=== PATIENT | female | born 1955 | race African-American/Black ===

== ENCOUNTER 2016-10-01 08:37 | Day surgery (SDC) | payer BC, MEDICARE ==
[~2016-10-01 08:37] MED LIST: CHONDR SU A NA/HYALUR INTRAOC KIT (SURGICARE) ONE; EPINEPHRINE INJ/PF 1 MG/1 ML AMPULE ONE; KETOROLAC TROMETHAMINE 0.45% 4 DROP/0.4 ML DROPERETTE OD PRN; LIDOCAINE 1% INJ-PF (10 MG/ML) 30 ML SDV ONE; TOBRAMYCIN SULFATE/DEXAMETH OPH OINTMENT 3.5 GM ONE
[2016-10-01] MEDS: CYCLOPENTOLATE 0.2%/PHENYLEPHRINE 1% OPH SOLN 2 ML OD PRN ×3 (09:04→09:43)
[2016-10-01] MEDS: TROPICAMIDE 1% OPH SOLN 3 ML OD PRN ×3 (09:04→09:43)
[2016-10-01] MEDS: BESIFLOXACIN HCL 0.6% OPH SUSP 5 ML BOTTLE OD PRN ×2 (09:05→10:18)
[2016-10-01] MEDS: TETRACAINE HCL 0.5% OPH SOLN 0.6 ML DROPERETTE OD PRN ×4 (09:06→09:57)
[2016-10-01] MEDS ORDERED: MIDAZOLAM 2 MG/2 ML INJ ONE (09:37)
[2016-10-01] MEDS ORDERED: FENTANYL CITRATE INJ/PF 100 MCG/2 ML AMPUL ONE (09:37)
== END 2016-10-01 11:25 | disposition home or self-care (01) ==
LOC: SC 08:37
PROVIDERS: ATTEND Ophthalmology
PROC: 08RJ3JZ Replacement of Right Lens with Synthetic Substitute, Percutaneous Approach (ICD-10-PCS; principal; 2016-10-01 09:15)
DX: H25.11 Age-related nuclear cataract, right eye (principal); Z96.1 Presence of intraocular lens; I25.10 Atherosclerotic heart disease of native coronary artery without angina pectoris; E11.9 Type 2 diabetes mellitus without complications; I10 Essential (primary) hypertension; E78.00 Pure hypercholesterolemia, unspecified; K21.9 Gastro-esophageal reflux disease without esophagitis; Z79.899 Other long term (current) drug therapy; Z79.84 Long term (current) use of oral hypoglycemic drugs
CPT/HCPCS: 82962; 66984; V2630; J2250; J3490 ×3; A9270; J0171; J3010; 142

== ENCOUNTER 2016-11-06 11:35 | Inpatient (IN) | payer MEDICARE ==
--- NOTE | 2016-11-06 11:43 | ER Document Report ---
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 able to move all extremities. able to follow commands. pmh s/f stroke I have greeted and performed a rapid initial assessment of this patient. A comprehensive ED assessment and evaluation of the patient, analysis of test results and completion of the medical decision making process will be conducted by additional ED providers. TRAVEL OUTSIDE OF THE [place] IN LAST 30 DAYS: No - Related Data Allergies/Adverse Reactions: aspirin Adverse Reaction (Mild, Verified 10/01/16 09:47) INCREASES HEART RATE Past Medical History - Past Medical History Cardiac Medical History: Reports: Hx Heart Attack - 2006, Hx Hypertension - MEDICATED Pulmonary Medical History: Denies: Hx Asthma Neurological Medical History: Reports: Hx Cerebrovascular Accident - X 2, Hx Seizures - LAST SEIZURE APPROX 6 MO AGO Endocrine Medical History: Reports: Hx Diabetes Mellitus Type 2 GI Medical History: Reports: Hx Ulcer. Denies: Hx Hepatitis, Hx Hiatal Hernia Psychiatric Medical History: Reports: Hx Dementia - Multi-infarct, Hx Depression Infectious Medical History: Denies: Hx Hepatitis Past Surgical History: Reports: Hx Cardiac Catheterization, Hx Hysterectomy. Denies: Hx Mastectomy, Hx Open Heart Surgery, Hx Pacemaker
[2016-11-06] MEDS ORDERED: DIPHENHYDRAMINE HCL 50 MG/ML VIAL ONE (12:09)
[2016-11-06] MEDS ORDERED: DIPHENHYDRAMINE HCL 50 MG/ML VIAL IM ONE (12:22)
--- NOTE | 2016-11-06 12:28 | ER Document Report ---
ED Neuro Symptoms/Deficit - General Chief Complaint: Slurred Speech Stated Complaint: SLURRED SPEECH,FACIAL DROOP Notes: The patient is a 61-year-old female, past medical history hypertension, prior CVAs (residual mild right-sided arm and leg weakness), seizure disorder, depression, left eye blindness, DM, HLD, presents after she was found to be confused, slurred speech and forced right eye deviation by her that started last night at 2100. When she woke up, the symptoms were still present. The says that she has not started any new medications. The patient is not complaining of any pain, but she says that she is having some difficulty seeing out of her right eye. She cannot take her medications today because of difficulty swallowing. Denies headache, nausea, vomiting, abdominal pain, chest pain, shortness of breath, fevers, neck stiffness, numbness, tingling or increased weakness. TRAVEL OUTSIDE OF THE [place] IN LAST 30 DAYS: No - Related Data Allergies/Adverse Reactions: aspirin Adverse Reaction (Mild, Verified 11/06/16 11:44) INCREASES HEART RATE Past Medical History - General Information source: Patient, Relative - - Social History Smoking Status: Never Smoker Chew tobacco use (# tins/day): No Frequency of alcohol use: None Drug Abuse: None Family History: Reviewed & Not Pertinent Patient has suicidal ideation: No Patient has homicidal ideation: No - Past Medical History Cardiac Medical History: Reports: Hx Heart Attack - 2006, Hx Hypertension - MEDICATED Pulmonary Medical History: Denies: Hx Asthma Neurological Medical History: Reports: Hx Cerebrovascular Accident - X 2, Hx Seizures - LAST SEIZURE APPROX 6 MO AGO Endocrine Medical History: Reports: Hx Diabetes Mellitus Type 2 Renal/ Medical History: Denies: Hx Peritoneal Dialysis GI Medical History: Reports: Hx Ulcer. Denies: Hx Hepatitis, Hx Hiatal Hernia Psychiatric Medical History: Reports: Hx Dementia - Multi-infarct, Hx Depression Infectious Medical History: Denies: Hx Hepatitis Past Surgical History: Reports: Hx Cardiac Catheterization, Hx Hysterectomy. Denies: Hx Mastectomy, Hx Open Heart Surgery, Hx Pacemaker Review of Systems - Review of Systems Notes: REVIEW OF SYSTEMS: CONSTITUTIONAL: -fevers, -chills EENT: +right eye blurriness, -eye pain, -difficulty swallowing, -nasal congestion CARDIOVASCULAR: -chest pain, -syncope. RESPIRATORY: -cough, -SOB GASTROINTESTINAL: -abdominal pain, -nausea, -vomiting, -diarrhea GENITOURINARY: -dysuria, -hematuria MUSCULOSKELETAL: -back pain, -neck pain SKIN: -rash or skin lesions. HEMATOLOGIC: -easy bruising or bleeding. LYMPHATIC: -swollen, enlarged glands. NEUROLOGICAL: -altered mental status or loss of consciousness, -headache, + slurred speech, +right eye deviation PSYCHIATRIC: -anxiety, -depression. ALL OTHER SYSTEMS REVIEWED AND NEGATIVE. Physical Exam - Vital signs Vitals: Pulse Resp BP Pulse Ox 78 18 157/102 H 98 11/06/16 12:10 11/06/16 12:10 11/06/16 12:10 11/06/16 12:10 - Notes Notes: PHYSICAL EXAMINATION: GENERAL: Well-appearing, well-nourished and in no acute distress. HEAD: Atraumatic, normocephalic. EYES: Forced right eye deviation. Pupils equal round and reactive to light, extraocular movements intact, sclera anicteric, conjunctiva are normal. ENT: nares patent, oropharynx clear without exudates. Moist mucous membranes. NECK: Normal range of motion, supple without lymphadenopathy LUNGS: Breath sounds clear to auscultation bilaterally and equal. No wheezes rales or rhonchi. HEART: Regular rate and rhythm without murmurs ABDOMEN: Soft, nontender, normoactive bowel sounds. No guarding, no rebound. No masses appreciated. EXTREMITIES: Normal range of motion, no pitting or edema. No cyanosis. NEUROLOGICAL: Forced right eye deviation, symmetrical facial muscles, residual 4 -5 strength on the right arms and legs and 5 out of 5 strength in the left arms and legs. No sensory deficit. PSYCH: Normal mood, normal affect. SKIN: Warm, Dry, normal turgor, no rashes or lesions noted. Course - Re-evaluation Re-evalutation: NIHSS 10. ABCD2 score of 6. Patient is not a TPA candidate due to onset of symptoms 15 hours ago at 21:00 yesterday. 11/06/16 13:24 On arrival, Benadryl was provided for possible dystonic reaction due to some psychiatric medications on her home med list. Her symptoms did not change. CT shows a lacunar infarct with extension into his brainstem. She listed an aspirin allergy, but her sister said that she had cataract surgery about 2 months ago and was told not to take aspirin after the surgery. She takes aspirin at home normally. Will provide her with MA aspirin because the benefits of ASA during a CVA outweigh the risks at this time and she did not pass the dysphagia screening. Also will provide labetalol IV for her elevated blood pressure. Spoke to Dr. Kidd and she has accepted patient as inpatient IMCU. - Vital Signs Vital signs: Temp Pulse Resp BP Pulse Ox 78 20 157/121 H 99 11/06/16 12:10 11/06/16 12:15 11/06/16 12:10 11/06/16 12:22 - Laboratory Result Diagrams: 11/06/16 12:15 11/06/16 12:15 Laboratory results interpreted by me: 11/06/16 11/06/16 11/06/16 12:15 12:15 12:18 Hgb 11.3 L Hct 34.1 L Carbon Dioxide 31 H BUN 34 H Est GFR (Non-Af Amer) 55 L Glucose 128 H POC Glucose 137 H - Diagnostic Test Radiology reviewed: Image reviewed, Reports reviewed Radiology results interpreted by me: CT Head: small lacunar infarct into brainstem, chronic microvascular changes CXR: NAD - EKG Interpretation by Me EKG shows normal: Sinus rhythm Rate: Normal [place]/QRS: IVCD Heart block present: 1st Degree Critical Care Note - Critical Care Note Total time excluding time spent on procedures (mins): 60 Discharge - Discharge Clinical Impression: Cerebrovascular accident (CVA) Qualifiers: CVA mechanism: unspecified Qualified Code(s): I63.9 - Cerebral infarction, unspecified Condition: Stable Disposition: ADMITTED INPATIENT Admitting Provider: Shobha Kidd Unit Admitted: IMCU
[2016-11-06 12:30] LABS: ABSOLUTE BASOPHILS # (AUTO) 0.1 10^3/uL (0.0-0.2); ABSOLUTE EOSINOPHILS # (AUTO) 0.2 10^3/uL (0.0-0.6); ABSOLUTE LYMPHOCYTES (AUTO) 1.2 10^3/uL (0.5-4.7); ABSOLUTE MONOCYTES (AUTO) 0.5 10^3/uL (0.1-1.4); ABSOLUTE NEUT (AUTO) 3.2 10^3/uL (1.7-8.2); BASOPHILS % (AUTO) 1.2 % (0-2); EOSINOPHILS % (AUTO) 3.3 % (0-6); HEMATOCRIT 34.1 % (36.0-47.0); HEMOGLOBIN 11.3 g/dL (12.0-15.5); HGB HCT DIFFERENCE -0.2; LYMPHOCYTES % (AUTO) 23.8 % (13-45); MEAN CORPUSCULAR HEMOGLOBIN 29.8 pg (27.0-33.4); MEAN CORPUSCULAR HGB CONC 33.2 g/dL (32.0-36.0); MEAN CORPUSCULAR VOLUME 90 fl (80-97); PROTHROMBIN TIME 13.2 SEC (11.4-15.4); RED CELL DISTRIBUTION WIDTH 12.7 % (11.5-14.0); SEGMENTED NEUTROPHILS % (AUTO) 61.7 % (42-78); WHITE BLOOD COUNT 5.2 10^3/uL (4.0-10.5)
[2016-11-06 12:31] LABS: PARTIAL THROMBOPLASTIN TIME 27.8 SEC (23.5-35.8)
--- NOTE | 2016-11-06 12:51 | EKG REPORT ---
SEVERITY:- ABNORMAL ECG - SINUS RHYTHM FIRST DEGREE AV BLOCK NONSPECIFIC INTRAVENTRICULAR CONDUCTION DELAY LEFT VENTRICULAR HYPERTROPHY : Confirmed by: Angelica Arellano 06-Nov-2016 12:51:01
[2016-11-06 12:57] LABS: ALANINE AMINOTRANSFERASE 20 U/L (9-52); ALBUMIN 4.1 g/dL (3.5-5.0); ALKALINE PHOSPHATASE 57 U/L (38-126); ANION GAP 8 (5-19); ASPARTATE AMINO TRANSFERASE 17 U/L (14-36); BILIRUBIN,TOTAL 0.6 mg/dL (0.2-1.3); BLOOD UREA NITROGEN 34 mg/dL (7-20); CARBON DIOXIDE 31 mmol/L (22-30); CHLORIDE 103 mmol/L (98-107); CREATINE KINASE 53 U/L (30-135); CREATININE RESULT 1.02 mg/dL (0.52-1.25); GLUCOSE 128 mg/dL (75-110); POTASSIUM 4.1 mmol/L (3.6-5.0); SODIUM 141.7 mmol/L (137-145); TOTAL PROTEIN 7.8 g/dL (6.3-8.2)
[2016-11-06 13:06] LABS: CREATINE KINASE MB 0.33 ng/mL (<4.55)
[2016-11-06 13:07] LABS: TROPONIN I < 0.012 ng/mL
[2016-11-06] MEDS ORDERED: ASPIRIN 300 MG SUPP, RECTAL PR ONE (13:21)
[2016-11-06] MEDS ORDERED: LABETALOL HCL INJ 20 MG/4 ML DISP.SYRIN IV ONE (13:23)
[2016-11-06] MEDS ORDERED: ACETAMINOPHEN 650 MG SUPP.RECT PR PRN (13:23)
[2016-11-06] MEDS ORDERED: TRAMADOL HCL 50 MG TABLET NG PRN (13:23)
--- NOTE | 2016-11-06 13:28 | ER Document Report ---
ED NIH Stroke Scale - NIH Stroke Scale When completed:: Before Alteplase *: 1. NIH scale should be completed with appropriate accompanying assessment tools. *: 2. The NIH should reflect what the patient is capable of doing and should not be coached by the clinician. 1a. Level of Consciousness: 0=Alert;keenly responsive -: 1=Drowsy -: 2=Obtunded -: 3=Coma/unresponsive or reflex to noxious stimuli. 1a. Responses: 0 1b. Orientation Questions: a. What month is it? -: b. How old are you? -: 0=Answers both questions correctly. -: 1=Answers one question correctly or patient is intubated or has orotracheal trauma. -: 2=Answers neither question correctly. 1b. Responses: 1 1c. Response to commands: a. Open and close eyes? -: b. 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 -: Credit is given despite weakness. Demonstration of task is permitted. Substitute command if hands cannot be used. -: 0=Performs both tasks correctly -: 1=Performs one task correctly -: 2=Performs neither task correctly 1c. Responses: 0 2. Gaze: Establish eye contact and instruct patient to "Follow my finger" -: 0=Normal -: 1=Partial gaze palsy. Gaze is abnormal in one or both eyes, but where forced deviation or total gaze paresis is not present. -: 2=Forced deviation or total gaze paresis. 2. Responses: 2 3. Visual Lazo: Sees fingers in all four quadrants. -: 0=No visual loss. -: 1=Partial hemianopsia. -: 2=Complete hemianopsia. -: 3=Bilateral hemianopsia (including Cortical blindness) 3. Responses: 2 4. Facial Movement: Instruct patient to: -: a. Show me your teeth -: b. Raise your eyebrows -: c. Close your eyes -: d. Smile -: 0=Normal symmetrical movement -: 1=Minor paralysis (flattened nasolabial fold, asymmetry on smiling). -: 2=Partial paralysis (total or near total paralysis of lower face). -: 3=Complete paralysis of upper and lower face 4. Responses: 1 5. Motor functions (left arm): Alternate sides and extend each arm with palms down (90 degrees if sitting or 45 degrees for supine). -: 0=No drift;limb holds for full 10 seconds. -: 1=Drift; limb holds but drifts down before full 10 seconds, but does not hit bed. -: 2=Some effort against gravity; limb cannot get to or maintain position. -: 3=No effort against gravity; limb falls. -: 4=No movement. -: UN=Amputation, joint fusion, explain in comments. 5. Responses (left arm): 0 5. Motor Functions (right arm): Alternate sides and extend each arm with palms down (90 degrees if sitting or 45 degrees for supine). -: 0=No drift;limb holds for full 10 seconds. -: 1=Drift; limb holds but drifts down before full 10 seconds, but does not hit bed. -: 2=Some effort against gravity; limb cannot get to or maintain position. -: 3=No effort against gravity; limb falls. -: 4=No movement. -: UN=Amputation, joint fusion, explain in comments. 5. Responses (right arm): 0 6. Motor Functions (left leg): With patient lying supine, alternate sides and extend each leg (30 degrees always while supine). -: 0=No drift, leg holds position for full 5 seconds -: 1=Drift; leg falls before full 5 seconds but does not hit bed. -: 2=Some effort against gravity, leg falls to bed but some effort against gravity. -: 3=No effort against gravity, leg falls to bed immediately. -: 4=No movement. -: UN=Amputation, joint fusion; explain in comments. 6. Responses (left leg): 0 6. Motor Functions (right leg): With patient lying supine, alternate sides and extend each leg (30 degrees always while supine). -: 0=No drift, leg holds position for full 5 seconds -: 1=Drift; leg falls before full 5 seconds but does not hit bed. -: 2=Some effort against gravity, leg falls to bed but some effort against gravity. -: 3=No effort against gravity, leg falls to bed immediately. -: 4=No movement. -: UN=Amputation, joint fusion; explain in comments. 6. Responses (right leg): 0 7. Limb Ataxia: With eyes open instruct patient to: -: a. "Touch your finger to your nose". -: b. "Touch your heel to your aguilera" -: 0=Absent -: 1=Present in one limb. -: 2=Present in two limbs. -: UN=Amputation or joint fusion; explain in comments. 7. Responses: 2 8. Sensory: Test sensation using pinprick or noxious stimuli. Test as many body parts as possible. -: 0=Normal;no sensory loss -: 1=Mile to moderate sensory loss (patient feels pin prick but is less sharp on affected side). -: 2=Severe or total sensory loss. 8. Responses: 0 9. Best Language: Instruct patient to: -: a. "Describe what you see in this picture." -: b. "Name the items in this picture." -: c. "Read these sentences." -: 0=No aphasia, normal -: 1=Mild to moderate aphasia. -: 2=Severe aphasia -: 3=Mute, global aphasia, no usable speech or auditory comprehension. 9. Responses: 1 10. Articulation, Dysarthia: Instruct patient to: -: "Read these words" or "Repeat these words" -: 0=Normal -: 1=Mild to moderate; patient may slur some words but can be understood without difficulty. -: 2=Severe; patients speech so slurred as to be unintelligible in the absence of dysphasia. -: UN=Intubated or other physical barrier, explain in comments. 10. Responses: 1 11. Extinction or inattention: 0=No abnormality -: 1= Visual, tactile, auditory, spatial, or personal inattention or extinction to bilateral simulation in one or the sensory modalities. -: 2=Profound uriel-inattention or uriel-inattention to more than one modality; does not recognize own hand. 11. Responses: 0 Total Score: 10
[2016-11-06] MEDS ORDERED: PHARMACY COMMUNICATION ORDER MC NR (13:30)
[2016-11-06] MEDS: HEPARIN SOD (PORCINE) 5,000 UNIT/ML 1 ML SYRINGE SUBCUT SCH ×2 (13:58→23:54)
[2016-11-06] MEDS ORDERED: DEXTROSE 50%-WATER 25 GM/50 ML DISP.SYRIN IV PRN ×2 (14:11)
[2016-11-06] MEDS ORDERED: DEXTROSE 40% GEL 15 GM TUBE PO PRN ×2 (14:11)
[2016-11-06] MEDS ORDERED: GLUCAGON,HUMAN RECOMB 1 MG INJ IM PRN (14:11)
[2016-11-06] MEDS ORDERED: PHENOL/SODIUM PHENOLATE 100 SPRAY/177 ML BOTTLE PO PRN (14:36)
[2016-11-06] MEDS ORDERED: LORAZEPAM INJ 2 MG/1 ML VIAL IV ONE ×2 (15:00→21:00)
[2016-11-06] MEDS ORDERED: DIPHENHYDRAMINE HCL 50 MG/ML VIAL IV ONE (15:00)
[2016-11-06] MEDS ORDERED: ENALAPRILAT DIHYDRATE INJ/PF 1.25 MG/1 ML SDV IV ONE (15:00)
[2016-11-06] MEDS ORDERED: HALOPERIDOL LACTATE INJ 5 MG/1 ML VIAL IV ONE (15:00)
--- NOTE | 2016-11-06 15:38 | PDOC H&P ---
History of Present Illness Admission Date/PCP: 11/06/16 14:31 HAYLEY PETERSEN NP History of Present Illness: DAVID SALAS is a 61 year old female with a past medical history of diabetes mellitus, hypertension, hyperlipidemia, previous CVA, seizure disorder, CAD, and recent cataract surgery who presents to the emergency department with an inability to walk. Patient states that she had been doing well and feeling fine and her normal state of health prior to going to bed last evening. She reports no changes in her medications prior to today. She did not take her medications today. Patient has inconsistently been taking Aggrenox due to recent cataract surgery in September. Patient had apparently a subsequent hyphema. Upon presentation to the emergency department, patient is found to have right-sided facial drooping, right-sided gaze preference, dysarthria, dysphasia, and confusion. Patient was found to be hypertensive with a blood pressure of 157/121. Patient reports history of obstructive sleep apnea which is currently untreated. She is referred to the hospitalist service for acute CVA. Past Medical History Past Medical History: diabetes mellitus, hypertension, hyperlipidemia, previous CVA, seizure disorder , CAD, and recent cataract surgery Cardiac Medical History: Reports: Myocardial Infarction - 2006, Hyperlipidema, Hypertension - MEDICATED Pulmonary Medical History: Denies: Asthma Neurological Medical History: Reports: Seizures - LAST SEIZURE APPROX 6 MO AGO Endocrine Medical History: Reports: Diabetes Mellitus Type 2 GI Medical History: Denies: Hepatitis, Hiatal Hernia Psychiatric Medical History: Reports: Dementia - Multi-infarct, Depression Hematology: Denies: Anemia, Sickle Cell Disease Past Surgical History Past Surgical History: Cataract Past Surgical History: Reports: Cardiac Catheterization, Hysterectomy Denies: Amputation, Mastectomy, Pacemaker Social History Smoking Status: Never Smoker Frequency of Alcohol Use: None Hx Recreational Drug Use: No Hx Prescription Drug Abuse: No - Advance Directive Resuscitation Status: Do Not Resuscitate Surrogate healthcare decision maker:: Sister, Miranda surrogate decision maker Family History Family History: CAD, CVA, Hypertension Family History: Mother at the age of 33 of "phlebitis" that went to her lung Parental Family History Reviewed: Yes Children Family History Reviewed: Yes Sibling(s) Family History Reviewed.: Yes Medication/Allergy Home Medications: Lisinopril [Prinivil 20 mg Tablet] 40 mg PO DAILY 06/30/12 Metformin HCl [Metformin HCl ER] 500 mg PO BID 06/30/12 Simvastatin [Zocor 10 mg Tablet] 20 mg PO QHS 06/30/12 Hydrochlorothiazide 12.5 mg PO DAILY #5 capsule 05/11/16 Amlodipine Besylate [Norvasc 10 mg Tablet] 10 mg PO DAILY 09/17/16 Atropine Sulfate [Atropine 1% Oph Soln 5 ml] 1 - 2 drop OU QID 09/17/16 Citalopram Hydrobromide [Citalopram HBr] 10 mg PO DAILY 09/17/16 Dipyridamole [Persantine 25 Mg Tablet] 25 mg PO DAILY 09/17/16 Esomeprazole Magnesium [Nexium] 40 mg PO DAILY 09/17/16 Levetiracetam [Keppra Xr 500 Mg Tab.Sr] 500 mg PO BID 09/17/16 Prednisolone Acetate [Pred Forte] 1 ml OP ASDIR PRN 09/17/16 Allergies/Adverse Reactions: aspirin Adverse Reaction (Mild, Verified 11/06/16 11:44) INCREASES HEART RATE Review of Systems Constitutional: ABSENT: chills, fever(s), headache(s), weight gain, weight loss Eyes: PRESENT: as per HPI, visual disturbances Ears: ABSENT: hearing changes Cardiovascular: PRESENT: edema, orthropnea. ABSENT: chest pain, dyspnea on exertion, palpitations Respiratory: PRESENT: dyspnea. ABSENT: cough, hemoptysis Gastrointestinal: PRESENT: constipation. ABSENT: abdominal pain, diarrhea, hematemesis, hematochezia, nausea, vomiting Genitourinary: ABSENT: dysuria, hematuria Musculoskeletal: ABSENT: joint swelling Integumentary: ABSENT: rash, wounds Neurological: PRESENT: as per HPI Psychiatric: ABSENT: anxiety, depression, homidical ideation, suicidal ideation Endocrine: ABSENT: cold intolerance, heat intolerance, polydipsia, polyuria Hematologic/Lymphatic: ABSENT: easy bleeding, easy bruising Physical Exam Vital Signs: Temp Pulse Resp BP Pulse Ox 78 20 157/121 H 99 11/06/16 12:10 11/06/16 12:15 11/06/16 12:10 11/06/16 12:22 General appearance: PRESENT: morbidly obese, severe distress, well-developed, well-nourished Head exam: PRESENT: atraumatic, normocephalic Eye exam: PRESENT: conjunctiva pink. ABSENT: EOMI - Right-sided gaze preference , PERRLA - Unreactive, scleral icterus Ear exam: PRESENT: normal external ear exam Mouth exam: PRESENT: moist. ABSENT: tongue midline - Deviates to the right Neck exam: ABSENT: carotid bruit, JVD, lymphadenopathy, thyromegaly, tracheal deviation Respiratory exam: PRESENT: crackles - Bilateral bases, decreased breath sounds - Bilateral bases, symmetrical, unlabored. ABSENT: rales, retraction, rhonchi, tachypnea, wheezes Cardiovascular exam: PRESENT: RRR, +S1, +S2, systolic murmur. ABSENT: diastolic murmur, rubs Pulses: PRESENT: normal dorsalis pedis pul Vascular exam: PRESENT: normal capillary refill GI/Abdominal exam: PRESENT: normal bowel sounds, soft. ABSENT: distended, firm , guarding, mass, Bonilla's sign, organolmegaly, rebound, rigid, tenderness Rectal exam: PRESENT: deferred Extremities exam: PRESENT: full ROM, +2 edema. ABSENT: calf tenderness, clubbing Neurological exam: PRESENT: alert, awake, oriented to person, oriented to place , oriented to time, oriented to situation, motor sensory deficit - Left upper and lower extremity weakness 4-/5. ABSENT: CN II-XII grossly intact - Right- sided facial droop, bilateral eye deviation to the right Psychiatric exam: PRESENT: appropriate affect, normal mood. ABSENT: homicidal ideation, suicidal ideation Skin exam: PRESENT: dry, intact, warm. ABSENT: cyanosis, rash Results Impressions: Head CT 11/06/16 11:38 IMPRESSION: MILD CHRONIC CHANGES OF ATROPHY AND MICROVASCULAR ISCHEMIA. Old bilateral occipital infarcts which appears stable. Small lacunar infarct it is identified at the level of the basal ganglia on the right and at the level of the brainstem on the right. Other findings as noted above Chest X-Ray 11/06/16 11:39 IMPRESSION: Cardiomegaly. No acute infiltrates Status: Imported from PACS Assessment & Plan - Diagnosis (1) CVA (cerebral vascular accident) Qualifiers: CVA mechanism: unspecified Qualified Code(s): I63.9 - Cerebral infarction, unspecified Is this a current diagnosis for this admission?: YesPlan: Patient with acute brainstem infarct. Admit patient to IM for monitoring for possible arrhythmia. Patient reports possible prior history of atrial fibrillation. Patient had been off aggrenox for vitreous hemorrhage. Spoke to patient's opthomologist who is okay with patient getting aspirin. Due to patient's dysphasia, will consult speech and place NG tube for demonstration of medications. Begin patient on Lipitor 80 mg by mouth daily at bedtime. Check fasting lipid panel. Will check patient hemoglobin A1c. For her patient's hypertensive emergency with labetalol and enalaprilat until her NG medications can be given. PT, OT, and discharge planning consults placed. Discussed case with Dr. Aly [facility] who is in agreement with MRI and antiplatelet therapy. He has no other recommendations at this time. Currently pending MRI/MRA. Have ordered echo, carotid Dopplers. (2) Hypertensive emergency Is this a current diagnosis for this admission?: YesPlan: Patient will be given labetalol Q 10 minutes for hypertensive emergency. Goal systolic blood pressures less than 180 and greater than 140 and goal diastolic pressure is less than 100. (3) Diabetes mellitus type 2 in obese Is this a current diagnosis for this admission?: YesPlan: Will check patient hemoglobin A1c. Accu-Cheks every 6 hours with sliding scale insulin. (4) Hyperlipidemia Qualifiers: Hyperlipidemia type: unspecified Qualified Code(s): E78.5 - Hyperlipidemia, unspecified Is this a current diagnosis for this admission?: Yes (5) Multi-infarct dementia Qualifiers: Dementia behavioral disturbance: without behavioral disturbance Qualified Code(s): F01.50 - Vascular dementia without behavioral disturbance Is this a current diagnosis for this admission?: Yes (6) Myocardial infarct, old Is this a current diagnosis for this admission?: Yes (7) Seizures Is this a current diagnosis for this admission?: YesPlan: Continue patient on IV Keppra at this time. (8) Dysphagia Qualifiers: Dysphagia type: unspecified Qualified Code(s): R13.10 - Dysphagia, unspecified Is this a current diagnosis for this admission?: YesPlan: Consult speech. Place NG. (9) Morbid obesity Is this a current diagnosis for this admission?: Yes - Time Time Spent: Greater than 70 Minutes Medications reviewed and adjusted accordingly: Yes Anticipated discharge: Acute Rehab - Inpatient Certification Based on my medical assessment, after consideration of the patient's comorbidities, presenting symptoms, or acuity I expect that the services needed warrant INPATIENT care.: Yes I certify that my determination is in accordance with my understanding of Medicare's requirements for reasonable and necessary INPATIENT services [42 CFR 412.3e].: Yes Medical Necessity: Need For Continuous Telemetry Monitoring, Need for Neurological Checks Post Hospital Care: D/C Global Logistics Analyst Documentation
[2016-11-06 16:41] LABS: CREATINE KINASE MB 0.54 ng/mL (<4.55)
[2016-11-06 16:56] LABS: TROPONIN I < 0.012 ng/mL
--- NOTE | 2016-11-06 18:16 | XCELERA REPORT ---
[address] [address] Transthoracic Echocardiogram Report Name: DAVID SALAS Age: 61 yrs Gender: Female : 1955 Patient Status: Inpatient Patient Location: [id number]\S\328\S\A Study Date: 11/06/2016 02:44 PM Height: 61 in Weight: 197 lb BSA: 1.9 m2 Procedure: A two-dimensional transthoracic echocardiogram with color flow and Doppler was performed. Study Quality: Fair. Reason For Study: chf, murmur, acute cva History: CVA. CHF. MURMUR. Ordering Physician: BLANCA FARRELL Performed By: Lisa Sheriff Interpretation Summary The left ventricle is normal in size. There is moderate concentric left ventricular hypertrophy. LV EF is 65% Left ventricular systolic function is normal. Doppler measurements suggest impaired left ventricular relaxation, which is associated with grade I/IV or mild diastolic dysfunction The left ventricular wall motion is normal. There is no thrombus. The left atrial size is normal. There is no evidence of mitral valve prolapse. There is no mitral valve stenosis. Cannot exxclude trivial MR. There is no aortic valve stenosis There is no LVOT obstruction. No aortic regurgitation is present. There is no tricuspid stenosis. There is a trace amount of tricuspid regurgitation Right ventricular systolic pressure is at the upper limits of normal RVSP is 30 mm of Hg ,with RA mean of 5. There is no pericardial effusion. MMode/2D Measurements \T\ Calculations RVDd: 2.8 cm LVIDd: 4.7 cmFS: 36.2 % Ao root diam: 3.5 cm IVSd: 1.4 cm LVIDs: 3.0 cmEDV(Teich): 103.2 ml LVPWd: 1.5 cmESV(Teich): 35.2 ml Ao root area: 9.5 cm2 EF(Teich): 65.8 % LA dimension: 4.0 cm LVOT diam: 2.3 cm LVOT area: 4.2 cm2 Doppler Measurements \T\ Calculations MV E max turner: MV P1/2t max turner: Ao V2 max: LV V1 max P.2 cm/sec 62.2 cm/sec 183.3 cm/sec 4.7 mmHg MV A max turner: MV P1/2t: 39.2 msec Ao max PG: LV V1 max: 100.7 cm/sec MVA(P1/2t): 5.6 cm2 13.4 mmHg 108.3 cm/sec MV E/A: 0.62 MV dec slope: RODRIGUEZ(V,D): 2.5 cm2 464.8 cm/sec2 MV dec time: 0.14 sec PA V2 max: TR max turner: 80.5 cm/sec 250.8 cm/sec PA max P.6 mmHgTR max P.2 mmHg Left Ventricle The left ventricle is normal in size. There is moderate concentric left ventricular hypertrophy. LV EF is 65%. Left ventricular systolic function is normal. Doppler measurements suggest impaired left ventricular relaxation, which is associated with grade I/IV or mild diastolic dysfunction. The left ventricular wall motion is normal. There is no thrombus. There is no ventricular septal defect visualized. Right Ventricle The right ventricle is grossly normal size. Atria The right atrium is normal. The left atrial size is normal. The interatrial septum is intact with no evidence for an atrial septal defect. Mitral Valve There is no evidence of mitral valve prolapse. There is no vegetation seen on the mitral valve. There is no mitral valve stenosis. Cannot exxclude trivial MR. Aortic Valve There is no aortic valvular vegetation. There is no aortic valve stenosis. There is no LVOT obstruction. No aortic regurgitation is present. Tricuspid Valve There is no tricuspid stenosis. There is a trace amount of tricuspid regurgitation. Right ventricular systolic pressure is at the upper limits of normal. RVSP is 30 mm of Hg ,with RA mean of 5. Pulmonic Valve There is no pulmonic valvular stenosis. There is a trace amount of pulmonic regurgitation. Great Vessels The aortic root is normal size. Effusions There is no pericardial effusion. : BLANCA FARRELL > Jing Odom
[2016-11-06] MEDS: ENALAPRILAT DIHYDRATE INJ/PF 1.25 MG/1 ML SDV IV SCH (19:30)
[2016-11-06] MEDS: LABETALOL HCL INJ 20 MG/4 ML DISP.SYRIN IV PRN (21:34)
[2016-11-06] MEDS ORDERED: ATORVASTATIN CALCIUM 80 MG TABLET NG SCH (22:00)
[2016-11-06] MEDS ORDERED: LEVETIRACETAM 500 MG/NACL-ISO 100 ML IV SCH (22:00)
[2016-11-06 22:30] LABS: CREATINE KINASE MB 0.59 ng/mL (<4.55); TROPONIN I 0.022 ng/mL
[2016-11-06] MEDS: FAMOTIDINE INJ/PF 20 MG/2 ML SDV IV SCH (23:54)
[2016-11-06] MEDS: LACTULOSE SYRUP 20 GM/30 ML UDCUP PO SCH (23:56)
[2016-11-07] MEDS ORDERED: LEVETIRACETAM 500 MG/NACL-ISO 500 MG/100 ML RTUPB IV ONE (00:23)
[2016-11-07] MEDS: ENALAPRILAT DIHYDRATE INJ/PF 1.25 MG/1 ML SDV IV SCH ×2 (00:27→08:24)
[2016-11-07] MEDS: LABETALOL HCL INJ 20 MG/4 ML DISP.SYRIN IV PRN (03:38)
[2016-11-07] MEDS ORDERED: HYDRALAZINE HCL INJ/PF 20 MG/1 ML SDV IV PRN (04:05)
[2016-11-07 05:02] LABS: ABSOLUTE BASOPHILS # (AUTO) 0.1 10^3/uL (0.0-0.2); ABSOLUTE EOSINOPHILS # (AUTO) 0.1 10^3/uL (0.0-0.6); ABSOLUTE LYMPHOCYTES (AUTO) 1.6 10^3/uL (0.5-4.7); ABSOLUTE MONOCYTES (AUTO) 0.5 10^3/uL (0.1-1.4); ABSOLUTE NEUT (AUTO) 2.4 10^3/uL (1.7-8.2); BASOPHILS % (AUTO) 1.1 % (0-2); EOSINOPHILS % (AUTO) 2.8 % (0-6); HEMATOCRIT 31.7 % (36.0-47.0); HEMOGLOBIN 10.5 g/dL (12.0-15.5); HGB HCT DIFFERENCE -0.2; LYMPHOCYTES % (AUTO) 33.9 % (13-45); MEAN CORPUSCULAR HEMOGLOBIN 29.9 pg (27.0-33.4); MEAN CORPUSCULAR VOLUME 90 fl (80-97); MONOCYTES % (AUTO) 11.1 % (3-13); RED BLOOD COUNT 3.51 10^6/uL (3.72-5.28); RED CELL DISTRIBUTION WIDTH 12.9 % (11.5-14.0); SEGMENTED NEUTROPHILS % (AUTO) 51.1 % (42-78); WHITE BLOOD COUNT 4.7 10^3/uL (4.0-10.5)
[2016-11-07 05:12] LABS: ANION GAP 12 (5-19); BLOOD UREA NITROGEN 20 mg/dL (7-20); CALCIUM 9.6 mg/dL (8.4-10.2); CARBON DIOXIDE 31 mmol/L (22-30); CHLORIDE 99 mmol/L (98-107); CHOLESTEROL 174.08 mg/dL (0-200); CREATINE KINASE 157 U/L (30-135); CREATININE RESULT 1.02 mg/dL (0.52-1.25); Direct HDL 44 mg/dL (>40); GLUCOSE 127 mg/dL (75-110); POTASSIUM 3.6 mmol/L (3.6-5.0); SODIUM 141.6 mmol/L (137-145); TRIGLYCERIDES 147 mg/dL (<150)
[2016-11-07 05:23] LABS: DIRECT LDL 64 mg/dL (<100)
[2016-11-07 05:33] LABS: CREATINE KINASE MB 0.93 ng/mL (<4.55); TROPONIN I 0.015 ng/mL
[2016-11-07] MEDS: HEPARIN SOD (PORCINE) 5,000 UNIT/ML 1 ML SYRINGE SUBCUT SCH ×3 (06:58→22:40)
--- NOTE | 2016-11-07 08:58 | ST Inp Modified Barium Swallow ---
Medical Diagnosis - Medical Diagnoses Medical Diagnosis Description & ICD-10 Code(s): cva, risk of silent aspiration - ICD-10 Tx Diagnosis Coding (1) Dysphagia, oral phase ICD-10 Code(s): R13.11 - DYSPHAGIA, ORAL PHASE (2) Dysphagia, oropharyngeal phase ICD-10 Code(s): R13.12 - DYSPHAGIA, OROPHARYNGEAL PHASE ST Inpatient [facility] [place] - General Date: 11/07/16 Date of Onset: 11/06/16 - History History Obtained From: Patient - per EMR -: Medical - cva-acute brainstem infarct, FL, dementia, diabetes, seizures, dysphagia, obsesity. Head CT shows- mild chronic changes old bilateral occipital infarcts, small lacunar infarct is identified at the level of the basal ganglia and the right and at the level of the brainstem on the right. Head CT shows-punctate tiny rigth basal ganglia and right occipital lobe infarct , right mastoid effusion, otherwise chronic changes oncluding small vessel disease and old occioital infarcts and brainstem infarcts. Chest xray shows cardiomegaly, no acute infiltrates. PMHx: diabetes, HTN, hyperlipidemia, CVA, seizure disorder, CAD, cardiac surgery, FL, dementia, depression. Medications: Medications Reviewed Allergies: Refer to medical record - Subjective Current Nutritional Means: NPO Current PO Diet: N/A (NPO) Current Symptoms: other - failed nursing swallow screen Pain: 0/5 - Objective Assessment: Upright, Left Lateral - Food Trials Food Trials Used: Thin liquids, Pureed, Soft solids The Patient: fed by ST - Assessment Labial Function: Impaired - impaired seal, impaired ROM Lingual Function: Impaired - weak, impaired propulsion, impaired bolus control, impaired bolus propulsion Mandibular Function: Impaired - weak, pt unable to chew soft solid-had to be manually removed by ST Dentition: Partial Velo-Pharyngeal Function: Unremarkable Laryngeal Function: Volitional Cough, Volitional Swallow - Pharyngeal Stage Initiation of Pharyngeal Stage: Delayed Reflex Delay Time (seconds): 1 Decreased Laryngeal Elevation: No Reduced Velo-Pharyngeal Closure: no Reduced Pressure Generation: No Reduced Tongue Base Retraction: Yes - mildly Pre-Swallowing Pooling in Valleculae: Mild - on thin and puree Pre-Swallowing Pooling in Pyriforms: Mild - on thin Reduced Thyro-Hyiod Approximation: No Reduced Epiglottic Excursion: No Reduced Pharyngeal Peristalsis: No Post Swallow Residuals in Valleculae: Mild - trace with puree Post Swallow Residuals in Pyriforms: None - Impression/Summary Laryngeal Penetration: No Tracheal Aspiration: no Patient Presents With: Oral stage dysphagia - moderate-severe, Oral-Pharyngeal dysph. - mild-moderate Risk of Aspiration: Moderate - mild-moderate - Recommendations NPO: no Solid Diet Recommendations: Pureed - -smooth Liquid Diet Recommendations: Thin - no straws Strict Aspitarion Precautions: Yes Dysphagia Therapy with ASSISTANT PRESS OPERATOR: Yes - ST also to evaluate for speech and language, Inpatient, Discharge Recommended Techniques: Fully Upright During Meal, Alternate Bites/Sips Supervision: requires assistance Other Recommendations: 1) DIET: Recommend smooth puree and thin liquids-no straws. 2) Aspiration precautions. 3) Alternate bites and sips to aid in clearing oral residuals. 4) Check mouth for pocketing after meals. 5) ST to treat x2 next week, ST also to evaluate for speech and language. SUMMARY: Pt presents with a moderate-severe oral dysphagia and a mild-moderate oropharyngeal dysphagia characterized by impaired bolus control, propulsion, and formation, reduced mandibular strength, mildy weak base of tongue; resulting in oral residuals of thin and puree, unable to chew soft solids, and trace residuals in valleculae. No aspiration observed during MBSS. ST contacted MD through PSS system, no answer. - Time Total Time: 20 Total Timed Minutes: 0 ST FYash Impairment Category - Rationale Based On Rationale Based On: Clin Find., Obj Measures - Swallowing Current G8996: CK 40-59% Impaired Goal G8997: CJ 20-39% Impaired
[2016-11-07] MEDS ORDERED: ASPIRIN 300 MG SUPP, RECTAL PR SCH (10:00)
[2016-11-07] MEDS: LEVETIRACETAM 500 MG/NACL-ISO 500 MG/100 ML RTUPB IV SCH ×2 (11:12→22:40)
[2016-11-07] MEDS: LACTULOSE SYRUP 20 GM/30 ML UDCUP PO SCH ×2 (11:14→19:28)
[2016-11-07] MEDS: FAMOTIDINE INJ/PF 20 MG/2 ML SDV IV SCH ×2 (11:15→22:39)
[2016-11-07] MEDS ORDERED: LORAZEPAM INJ 2 MG/1 ML VIAL ONE (11:47)
[2016-11-07] MEDS ORDERED: LORAZEPAM INJ 2 MG/1 ML VIAL IV ONE (11:56)
[2016-11-07] MEDS ORDERED: ATORVASTATIN CALCIUM 80 MG TABLET NG SCH (11:58)
[2016-11-07] MEDS ORDERED: CHOLECALCIFEROL (D3) 1,000 UNIT TABLET PO ONE (13:00)
[2016-11-07] MEDS ORDERED: CITALOPRAM HYDROBROMIDE 20 MG TABLET PO ONE (13:00)
[2016-11-07] MEDS ORDERED: LISINOPRIL 10 MG TABLET PO ONE (13:00)
[2016-11-07] MEDS ORDERED: METOPROLOL SUCCINATE 50 MG TAB.SR.24H PO ONE (13:00)
[2016-11-07] MEDS ORDERED: ASPIRIN/DIPYRIDAMOLE 25-200 MG 1 CAP.SR CPMP.12HR PO ONE (13:00)
[2016-11-07] MEDS: ATROPINE SULFATE 1% OPH SOLN 5 ML BOTTLE OU SCH ×3 (16:19→22:39)
[2016-11-07] MEDS ORDERED: ASPIRIN 81 MG TABLET, CHEWABLE PO ONE (17:30)
--- NOTE | 2016-11-07 17:31 | PDOC PROGRESS REPORT ---
Subjective Progress Note for:: 11/07/16 Subjective:: Patient had episode of combativeness requiring Ativan in soft restraints. Feel this was likely a panic attack at the time given nursing description. Patient family at bedside and we discussed current situation as well as plan of care. Physical Exam Vital Signs: Temp Pulse Resp BP Pulse Ox 97.7 F 62 20 167/53 H 98 11/07/16 05:00 11/07/16 05:00 11/07/16 05:00 11/07/16 06:01 11/07/16 05:00 Intake & Output 11/06/16 11/07/16 11/08/16 06:59 06:59 06:59 Intake Total 10 Balance 10 Weight 89.6 kg Exam: General: Resting comfortably, no acute respiratory distress HEENT: AT/NC, oropharynx is moist, pink Neck: No JVD, trachea midline Chest: Clear to auscultation bilaterally, no wheezes rhonchi or rales CV: Regular rate and rhythm, normal S1 and S2, no murmur, rub, or gallop Abdomen: Soft, nontender to palpation, nondistended, active bowel sounds; no rebound, rigidity, or guarding Extremities: No cyanosis, clubbing or edema Results Laboratory Results: 11/07/16 04:33 11/07/16 04:33 11/07/16 11/07/16 04:33 04:33 WBC 4.7 RBC 3.51 L Hgb 10.5 L Hct 31.7 L MCV 90 MCH 29.9 MCHC 33.0 RDW 12.9 Plt Count 286 Seg Neutrophils % 51.1 Lymphocytes % 33.9 Monocytes % 11.1 Eosinophils % 2.8 Basophils % 1.1 Absolute Neutrophils 2.4 Absolute Lymphocytes 1.6 Absolute Monocytes 0.5 Absolute Eosinophils 0.1 Absolute Basophils 0.1 Sodium 141.6 Potassium 3.6 Chloride 99 Carbon Dioxide 31 H Anion Gap 12 BUN 20 Creatinine 1.02 Est GFR ( Amer) > 60 Est GFR (Non-Af Amer) 55 L Glucose 127 H Calcium 9.6 Triglycerides 147 Cholesterol 174.08 LDL Cholesterol Direct 64 VLDL Cholesterol 29.0 HDL Cholesterol 44 11/06/16 11/06/16 11/06/16 15:37 15:37 21:51 Creatine Kinase 113 119 CK-MB (CK-2) 0.54 Troponin I < 0.012 11/06/16 11/07/16 11/07/16 21:51 04:33 04:33 Creatine Kinase 157 H CK-MB (CK-2) 0.59 0.93 Troponin I 0.022 0.015 Impressions: Venous Doppler Study 11/06/16 00:00 IMPRESSION: NO EVIDENCE DVT OR SVT IN EITHER LEG. Head CT 11/06/16 11:38 IMPRESSION: MILD CHRONIC CHANGES OF ATROPHY AND MICROVASCULAR ISCHEMIA. Old bilateral occipital infarcts which appears stable. Small lacunar infarct it is identified at the level of the basal ganglia on the right and at the level of the brainstem on the right. Other findings as noted above Chest X-Ray 11/06/16 11:39 IMPRESSION: Cardiomegaly. No acute infiltrates KUB X-Ray 11/06/16 13:24 IMPRESSION: Nasogastric tube as above. Head MRI 11/06/16 13:25 IMPRESSION: 1. Punctate tiny right basal ganglia and right occipital lobe infarct. 2. Right mastoid effusion. 3. Otherwise chronic changes, including small vessel disease and old occipital infarcts and brainstem infarcts. Carotid Doppler Study 11/06/16 13:26 IMPRESSION: NO HEMODYNAMICALLY SIGNIFICANT STENOSIS. Assessment & Plan - Diagnosis (1) CVA (cerebral vascular accident) Qualifiers: CVA mechanism: unspecified Qualified Code(s): I63.9 - Cerebral infarction, unspecified Is this a current diagnosis for this admission?: YesPlan: Patient with acute right basal ganglia and right occipital lobe infarcts. Also seen were small vessel disease and old occipital infarcts and previous brainstem infarcts. Admit patient to IMCU for monitoring for possible arrhythmia. Patient reports possible prior history of atrial fibrillation. Patient had been off aggrenox for vitreous hemorrhage. Spoke to patient's opthomologist who is in agreement with patient getting aspirin or any other anticoagulation necessary. Modified barium study recommended for her a thin liquids. On Lipitor 40 mg by mouth daily at bedtime. HDL 64 Hemoglobin A1c is 5.6. Hypertensive emergency has resolved and will resume patient's home medications. PT, OT, and discharge planning consults appreciated. Echocardiogram reveals mild grade 1 diastolic dysfunction and a preserved EF greater than 60%. Carotid Doppler reveals no significant stenosis. (2) Hypertensive emergency Is this a current diagnosis for this admission?: YesPlan: Patient will be given labetalol Q 10 minutes for hypertensive emergency. Goal systolic blood pressures between 120 and 150. (3) Diabetes mellitus type 2 in obese Is this a current diagnosis for this admission?: YesPlan: Transition to Accu-Cheks every before meals and at bedtime. Resume patient's home medications. A1c reveals well-controlled. (4) Hyperlipidemia Qualifiers: Hyperlipidemia type: unspecified Qualified Code(s): E78.5 - Hyperlipidemia, unspecified Is this a current diagnosis for this admission?: Yes (5) Multi-infarct dementia Qualifiers: Dementia behavioral disturbance: without behavioral disturbance Qualified Code(s): F01.50 - Vascular dementia without behavioral disturbance Is this a current diagnosis for this admission?: Yes (6) Myocardial infarct, old Is this a current diagnosis for this admission?: Yes (7) Seizures Is this a current diagnosis for this admission?: YesPlan: Continue patient on IV Keppra at this time. (8) Dysphagia Qualifiers: Dysphagia type: unspecified Qualified Code(s): R13.10 - Dysphagia, unspecified Is this a current diagnosis for this admission?: Yes (9) Morbid obesity Is this a current diagnosis for this admission?: Yes - Time Time Spent with patient: 35 or more minutes Medications reviewed and adjusted accordingly: Yes Anticipated discharge: Acute Rehab Within: when bed available
[2016-11-07] MEDS: METFORMIN HCL 500 MG TABLET PO SCH (19:29)
[2016-11-07] MEDS ORDERED: ASPIRIN/DIPYRIDAMOLE 25-200 MG 1 CAP.SR CPMP.12HR PO SCH (22:00)
[2016-11-07] MEDS: ATORVASTATIN CALCIUM 40 MG TABLET NG SCH (22:40)
[2016-11-08] MEDS ORDERED: (PENDING PHARMACY ID) (Citalopram Hydrobromide [Celexa 10 Mg Tablet] 10 MG) PO SCH (08:00)
[2016-11-08] MEDS ORDERED: ALPRAZOLAM 0.25 MG TABLET PO PRN (09:50)
[2016-11-08] MEDS ORDERED: CITALOPRAM HYDROBROMIDE 20 MG TABLET PO SCH (10:00)
[2016-11-08] MEDS ORDERED: CHOLECALCIFEROL (D3) 1,000 UNIT TABLET PO SCH (10:00)
[2016-11-08] MEDS: LACTULOSE SYRUP 20 GM/30 ML UDCUP PO SCH ×2 (10:32→17:31)
[2016-11-08] MEDS: FAMOTIDINE INJ/PF 20 MG/2 ML SDV IV SCH (10:33)
[2016-11-08] MEDS: ENOXAPARIN SODIUM INJ 100 MG/1 ML DISP.SYRIN SUBCUT SCH ×2 (10:34→21:34)
[2016-11-08] MEDS: METOPROLOL SUCCINATE 50 MG TAB.SR.24H PO SCH (10:35)
[2016-11-08] MEDS: METFORMIN HCL 500 MG TABLET PO SCH ×2 (10:35→17:31)
[2016-11-08] MEDS: AMLODIPINE BESYLATE 10 MG TABLET PO SCH (10:36)
[2016-11-08] MEDS: LISINOPRIL 10 MG TABLET PO SCH (10:37)
[2016-11-08] MEDS: CITALOPRAM HYDROBROMIDE 20 MG TABLET PO SCH (10:37)
[2016-11-08] MEDS: ASPIRIN 81 MG TABLET, CHEWABLE PO SCH (10:37)
[2016-11-08] MEDS: GLIPIZIDE 10 MG TABLET PO SCH (10:38)
[2016-11-08] MEDS: LEVETIRACETAM 500 MG TABLET PO SCH ×2 (10:38→21:34)
[2016-11-08] MEDS: ATROPINE SULFATE 1% OPH SOLN 5 ML BOTTLE OU SCH ×4 (10:39→21:56)
[2016-11-08] MEDS ORDERED: ACETAMINOPHEN 325 MG TABLET PO PRN (10:51)
--- NOTE | 2016-11-08 10:59 | PDOC PROGRESS REPORT ---
Subjective Progress Note for:: 11/08/16 Subjective:: Patient denies any new complaints. Nursing reports patient became combative and pulling off gown and leads. Family reports patient was not always compliant with medications prior to admission. Patient denies chest pain, shortness of breath, abdominal pain, nausea, vomiting , fevers, chills, diarrhea, constipation, headache. Physical Exam Vital Signs: Temp Pulse Resp BP Pulse Ox 97.3 F 63 17 161/72 H 100 11/08/16 04:23 11/08/16 04:23 11/08/16 04:23 11/08/16 04:23 11/08/16 04:23 Intake & Output 11/07/16 11/08/16 11/09/16 06:59 06:59 06:59 Intake Total 10 282 Balance 10 282 Weight 89.6 kg 89.6 kg Exam: General: Resting comfortably but arouses easily and answers questions appropriately, no acute respiratory distress HEENT: AT/NC, right-sided facial droop, right gaze deviation, Oropharynx is moist, pink Neck: No JVD, trachea midline Chest: Clear to auscultation bilaterally, no wheezes rhonchi or rales CV: Regular rate and rhythm, normal S1 and S2, no murmur, rub, or gallop Abdomen: Soft, nontender to palpation, nondistended, active bowel sounds; no rebound, rigidity, or guarding Extremities: No cyanosis, clubbing or edema Neuro:right-sided facial droop, right gaze deviation, blind right eye, tongue deviation to the right, strength 4+ out of 5 left upper extremity 5 out of 5 right upper extremity, strength 4 minus out of 5 left lower extremity, 4+ out of 5 right lower extremity Psych: Normal mood and affect Results Laboratory Results: 11/07/16 04:33 11/07/16 04:33 11/06/16 11/06/16 11/06/16 15:37 15:37 21:51 Creatine Kinase 113 119 CK-MB (CK-2) 0.54 Troponin I < 0.012 11/06/16 11/07/16 11/07/16 21:51 04:33 04:33 Creatine Kinase 157 H CK-MB (CK-2) 0.59 0.93 Troponin I 0.022 0.015 Impressions: Venous Doppler Study 11/06/16 00:00 IMPRESSION: NO EVIDENCE DVT OR SVT IN EITHER LEG. Head CT 11/06/16 11:38 IMPRESSION: MILD CHRONIC CHANGES OF ATROPHY AND MICROVASCULAR ISCHEMIA. Old bilateral occipital infarcts which appears stable. Small lacunar infarct it is identified at the level of the basal ganglia on the right and at the level of the brainstem on the right. Other findings as noted above Chest X-Ray 11/06/16 11:39 IMPRESSION: Cardiomegaly. No acute infiltrates KUB X-Ray 11/06/16 13:24 IMPRESSION: Nasogastric tube as above. Head MRI 11/06/16 13:25 IMPRESSION: 1. Punctate tiny right basal ganglia and right occipital lobe infarct. 2. Right mastoid effusion. 3. Otherwise chronic changes, including small vessel disease and old occipital infarcts and brainstem infarcts. Carotid Doppler Study 11/06/16 13:26 IMPRESSION: NO HEMODYNAMICALLY SIGNIFICANT STENOSIS. Assessment & Plan - Diagnosis (1) CVA (cerebral vascular accident) Qualifiers: CVA mechanism: unspecified Qualified Code(s): I63.9 - Cerebral infarction, unspecified Is this a current diagnosis for this admission?: YesPlan: Patient with acute right basal ganglia and right occipital lobe infarcts. Also seen were small vessel disease and old occipital infarcts and previous brainstem infarcts. Admit patient to IMCU for monitoring for possible arrhythmia. Patient reports possible prior history of atrial fibrillation. Patient's son confirm prior history of atrial fibrillation. Patient had been off aggrenox for vitreous hemorrhage. Spoke to patient's opthomologist who is in agreement with patient getting aspirin or any other anticoagulation necessary. Modified barium study recommended for her a thin liquids and smooth pured diet. On Lipitor 40 mg by mouth daily at bedtime. HDL 64 Hemoglobin A1c is 5.6. Hypertensive emergency has resolved and will resume patient's home medications. PT, OT, and discharge planning consults appreciated. Echocardiogram reveals mild grade 1 diastolic dysfunction and a preserved EF greater than 60%. Carotid Doppler reveals no significant stenosis. In light of prior history of atrial fibrillation and no contraindication to bleeding, will begin on Lovenox and Coumadin. (2) Hypertensive emergency Is this a current diagnosis for this admission?: YesPlan: Patient will be given labetalol Q 10 minutes for hypertensive emergency. Goal systolic blood pressures up to 140. (3) Diabetes mellitus type 2 in obese Is this a current diagnosis for this admission?: YesPlan: Transition to Accu-Cheks every before meals and at bedtime. Patient on metformin and glipizide. A1c 5.6 reveals well-controlled. (4) Hyperlipidemia Qualifiers: Hyperlipidemia type: unspecified Qualified Code(s): E78.5 - Hyperlipidemia, unspecified Is this a current diagnosis for this admission?: Yes (5) Multi-infarct dementia Qualifiers: Dementia behavioral disturbance: without behavioral disturbance Qualified Code(s): F01.50 - Vascular dementia without behavioral disturbance Is this a current diagnosis for this admission?: Yes (6) Myocardial infarct, old Is this a current diagnosis for this admission?: Yes (7) Seizures Is this a current diagnosis for this admission?: Yes (8) Dysphagia Qualifiers: Dysphagia type: unspecified Qualified Code(s): R13.10 - Dysphagia, unspecified Is this a current diagnosis for this admission?: Yes (9) Morbid obesity Is this a current diagnosis for this admission?: Yes (10) Anxiety and depression Is this a current diagnosis for this admission?: YesPlan: Patient has had many recent losses in her family and has been on Celexa for depression. Will increase Celexa and add when necessary Xanax given patient's profound anxiety. - Time Time Spent with patient: 25-34 minutes Medications reviewed and adjusted accordingly: Yes Anticipated discharge: Acute Rehab Within: when bed available
[2016-11-08 12:22] LABS: PROTHROMBIN TIME 13.4 SEC (11.4-15.4)
[2016-11-08] MEDS: HYDRALAZINE HCL 25 MG TABLET PO SCH ×2 (13:30→21:33)
[2016-11-08] MEDS: WARFARIN SODIUM 5 MG TABLET PO SCH (21:33)
[2016-11-08] MEDS: ATORVASTATIN CALCIUM 40 MG TABLET NG SCH (21:33)
[2016-11-08] MEDS: FAMOTIDINE 20 MG TABLET PO SCH (21:33)
[2016-11-09] MEDS: HYDRALAZINE HCL 25 MG TABLET PO SCH (06:20)
[2016-11-09] MEDS ORDERED: HYDRALAZINE HCL 25 MG TABLET PO SCH (07:39)
[2016-11-09] MEDS: LACTULOSE SYRUP 20 GM/30 ML UDCUP PO SCH ×2 (10:29→17:56)
[2016-11-09] MEDS: LEVETIRACETAM 500 MG TABLET PO SCH ×2 (10:30→22:30)
[2016-11-09] MEDS: GLIPIZIDE 10 MG TABLET PO SCH (10:30)
[2016-11-09] MEDS: ASPIRIN 81 MG TABLET, CHEWABLE PO SCH (10:30)
[2016-11-09] MEDS: METFORMIN HCL 500 MG TABLET PO SCH (10:30)
[2016-11-09] MEDS: LISINOPRIL 10 MG TABLET PO SCH (10:31)
[2016-11-09] MEDS: FAMOTIDINE 20 MG TABLET PO SCH ×2 (10:32→22:29)
[2016-11-09] MEDS: AMLODIPINE BESYLATE 10 MG TABLET PO SCH (10:32)
[2016-11-09] MEDS: METOPROLOL SUCCINATE 50 MG TAB.SR.24H PO SCH (10:32)
[2016-11-09] MEDS: CITALOPRAM HYDROBROMIDE 20 MG TABLET PO SCH (10:33)
[2016-11-09] MEDS: ENOXAPARIN SODIUM INJ 100 MG/1 ML DISP.SYRIN SUBCUT SCH ×2 (10:33→22:29)
[2016-11-09] MEDS: ATROPINE SULFATE 1% OPH SOLN 5 ML BOTTLE OU SCH ×4 (10:37→22:31)
[2016-11-09] MEDS ORDERED: HYDRALAZINE HCL 50 MG TABLET PO SCH (14:00)
[2016-11-09] MEDS: HYDRALAZINE HCL 50 MG TABLET PO SCH ×2 (14:36→22:29)
[2016-11-09] MEDS ORDERED: CLONIDINE 0.2 MG/24 HR PATCH.TDWK TD ONE (15:00)
[2016-11-09] MEDS ORDERED: NITROGLYCERIN 10 MG (0.4 MG/HR) PATCH.TD24 TD ONE (15:00)
[2016-11-09] MEDS ORDERED: DEXTROSE 5%-1/2 NORMAL SALINE 1,000 ML IV PRN (16:30)
--- NOTE | 2016-11-09 16:35 | PDOC PROGRESS REPORT ---
Subjective Progress Note for:: 11/09/16 Subjective:: Overnight, patient became combative and would not take her antihypertensives. Patient received no medications overnight. Patient was more amenable with family present today and took her medications. Patient reports that she's afraid to eat because she feels that it chokes her.Patient denies chest pain, shortness of breath, abdominal pain, nausea, vomiting, fevers, chills, diarrhea , constipation, headache. Physical Exam Vital Signs: Temp Pulse Resp BP Pulse Ox 97.9 F 60 20 178/74 H 100 11/09/16 06:21 11/09/16 06:21 11/09/16 06:21 11/09/16 06:21 11/09/16 06:21 Intake & Output 11/08/16 11/09/16 11/10/16 06:59 06:59 06:59 Intake Total 282 128 Output Total 0 Balance 282 128 Weight 89.6 kg 83.1 kg Exam: General: Resting comfortably but arouses easily and answers questions appropriately, no acute respiratory distress HEENT: AT/NC, right-sided facial droop, right gaze deviation, Oropharynx is dry , pink Neck: No JVD, trachea midline Chest: Clear to auscultation bilaterally, no wheezes rhonchi or rales CV: Regular rate and rhythm, normal S1 and S2, no murmur, rub, or gallop Abdomen: Soft, nontender to palpation, nondistended, active bowel sounds; no rebound, rigidity, or guarding Extremities: No cyanosis, clubbing; trace edema Neuro:right-sided facial droop, right gaze deviation, blind right eye, tongue deviation to the right, strength 4+ out of 5 left upper extremity 5 out of 5 right upper extremity, strength 4 minus out of 5 left lower extremity, 4+ out of 5 right lower extremity Psych: Normal mood and affect Results Laboratory Results: 11/07/16 04:33 11/07/16 04:33 11/06/16 11/06/16 11/06/16 15:37 15:37 21:51 Creatine Kinase 113 119 CK-MB (CK-2) 0.54 Troponin I < 0.012 11/06/16 11/07/16 11/07/16 21:51 04:33 04:33 Creatine Kinase 157 H CK-MB (CK-2) 0.59 0.93 Troponin I 0.022 0.015 Impressions: Venous Doppler Study 11/06/16 00:00 IMPRESSION: NO EVIDENCE DVT OR SVT IN EITHER LEG. Head CT 11/06/16 11:38 IMPRESSION: MILD CHRONIC CHANGES OF ATROPHY AND MICROVASCULAR ISCHEMIA. Old bilateral occipital infarcts which appears stable. Small lacunar infarct it is identified at the level of the basal ganglia on the right and at the level of the brainstem on the right. Other findings as noted above Chest X-Ray 11/06/16 11:39 IMPRESSION: Cardiomegaly. No acute infiltrates KUB X-Ray 11/06/16 13:24 IMPRESSION: Nasogastric tube as above. Head MRI 11/06/16 13:25 IMPRESSION: 1. Punctate tiny right basal ganglia and right occipital lobe infarct. 2. Right mastoid effusion. 3. Otherwise chronic changes, including small vessel disease and old occipital infarcts and brainstem infarcts. Carotid Doppler Study 11/06/16 13:26 IMPRESSION: NO HEMODYNAMICALLY SIGNIFICANT STENOSIS. Assessment & Plan - Diagnosis (1) CVA (cerebral vascular accident) Qualifiers: CVA mechanism: unspecified Qualified Code(s): I63.9 - Cerebral infarction, unspecified Is this a current diagnosis for this admission?: YesPlan: Patient with acute right basal ganglia and right occipital lobe infarcts. Also seen were small vessel disease and old occipital infarcts and previous brainstem infarcts. Admit patient to IMCU for monitoring for possible arrhythmia. Patient reports possible prior history of atrial fibrillation. Patient's son confirm prior history of atrial fibrillation. Patient had been off aggrenox for vitreous hemorrhage. Spoke to patient's opthomologist who is in agreement with patient getting aspirin or any other anticoagulation necessary. Modified barium study recommended for her a thin liquids and smooth pured diet. On Lipitor 40 mg by mouth daily at bedtime. HDL 64 Hemoglobin A1c is 5.6. Hypertensive emergency has resolved and will resume patient's home medications. PT, OT, and discharge planning consults appreciated. Echocardiogram reveals mild grade 1 diastolic dysfunction and a preserved EF greater than 60%. Carotid Doppler reveals no significant stenosis. In light of prior history of atrial fibrillation and no contraindication to bleeding, on Lovenox and Coumadin. (2) Hypertensive emergency Is this a current diagnosis for this admission?: YesPlan: Patient will be given labetalol Q 10 minutes for hypertensive emergency. Goal systolic blood pressures up to 140. Have started patient on clonidine patch and nitroglycerin patch. Concerned the patient will continue to refuse her oral medications. Have encouraged compliance. (3) Diabetes mellitus type 2 in obese Is this a current diagnosis for this admission?: YesPlan: Transition to Accu-Cheks every before meals and at bedtime. Stop metformin and glipizide while patient is taking in very little by mouth. A1c 5.6 reveals well -controlled. Begin patient on D5 half-normal. (4) Hyperlipidemia Qualifiers: Hyperlipidemia type: unspecified Qualified Code(s): E78.5 - Hyperlipidemia, unspecified Is this a current diagnosis for this admission?: Yes (5) Multi-infarct dementia Qualifiers: Dementia behavioral disturbance: without behavioral disturbance Qualified Code(s): F01.50 - Vascular dementia without behavioral disturbance Is this a current diagnosis for this admission?: Yes (6) Myocardial infarct, old Is this a current diagnosis for this admission?: Yes (7) Seizures Is this a current diagnosis for this admission?: Yes (8) Dysphagia Qualifiers: Dysphagia type: unspecified Qualified Code(s): R13.10 - Dysphagia, unspecified Is this a current diagnosis for this admission?: Yes (9) Morbid obesity Is this a current diagnosis for this admission?: Yes (10) Anxiety and depression Is this a current diagnosis for this admission?: Yes
[2016-11-09] MEDS: ATORVASTATIN CALCIUM 40 MG TABLET NG SCH (22:29)
[2016-11-09] MEDS: WARFARIN SODIUM 5 MG TABLET PO SCH (22:30)
[2016-11-10] MEDS: HYDRALAZINE HCL 50 MG TABLET PO SCH ×3 (05:59→22:26)
[2016-11-10 06:12] LABS: HEMATOCRIT 30.7 % (36.0-47.0); HEMOGLOBIN 10.3 g/dL (12.0-15.5); HGB HCT DIFFERENCE 0.2; MEAN CORPUSCULAR HEMOGLOBIN 29.9 pg (27.0-33.4); MEAN CORPUSCULAR HGB CONC 33.6 g/dL (32.0-36.0); MEAN CORPUSCULAR VOLUME 89 fl (80-97); RED BLOOD COUNT 3.45 10^6/uL (3.72-5.28); RED CELL DISTRIBUTION WIDTH 12.7 % (11.5-14.0); WHITE BLOOD COUNT 5.4 10^3/uL (4.0-10.5)
[2016-11-10 06:33] LABS: ANION GAP 12 (5-19); BLOOD UREA NITROGEN 30 mg/dL (7-20); CALCIUM 9.7 mg/dL (8.4-10.2); CARBON DIOXIDE 24 mmol/L (22-30); CHLORIDE 104 mmol/L (98-107); CREATININE RESULT 1.63 mg/dL (0.52-1.25); GLUCOSE 75 mg/dL (75-110); POTASSIUM 3.8 mmol/L (3.6-5.0); SODIUM 139.7 mmol/L (137-145)
[2016-11-10] MEDS: CITALOPRAM HYDROBROMIDE 20 MG TABLET PO SCH (09:12)
[2016-11-10] MEDS: LEVETIRACETAM 500 MG TABLET PO SCH (09:12)
[2016-11-10] MEDS: ASPIRIN 81 MG TABLET, CHEWABLE PO SCH (09:13)
[2016-11-10] MEDS: LISINOPRIL 10 MG TABLET PO SCH (09:14)
[2016-11-10] MEDS: METOPROLOL SUCCINATE 50 MG TAB.SR.24H PO SCH (09:15)
[2016-11-10] MEDS: FAMOTIDINE 20 MG TABLET PO SCH ×2 (09:15→22:25)
[2016-11-10] MEDS: AMLODIPINE BESYLATE 10 MG TABLET PO SCH (09:15)
[2016-11-10] MEDS: ENOXAPARIN SODIUM INJ 100 MG/1 ML DISP.SYRIN SUBCUT SCH ×2 (09:16→22:28)
[2016-11-10] MEDS: LACTULOSE SYRUP 20 GM/30 ML UDCUP PO SCH ×2 (09:17→17:21)
[2016-11-10] MEDS: ATROPINE SULFATE 1% OPH SOLN 5 ML BOTTLE OU SCH ×4 (09:17→22:30)
[2016-11-10] MEDS ORDERED: NITROGLYCERIN 10 MG (0.4 MG/HR) PATCH.TD24 TD SCH (10:00)
[2016-11-10] MEDS: DEXTROSE 5%-1/2 NORMAL SALINE 1,000 ML IV PRN ×2 (17:20→22:55)
--- NOTE | 2016-11-10 21:39 | PDOC PROGRESS REPORT ---
Subjective Progress Note for:: 11/10/16 Subjective:: Patient has not been eating or drinking. She reports that she is afraid to eat or drink. She states she does drink some. Patient denies chest pain, shortness of breath, abdominal pain, nausea, vomiting, fevers, chills, diarrhea, constipation, headache. Physical Exam Vital Signs: Temp Pulse Resp BP Pulse Ox 97.8 F 59 L 18 131/58 H 100 11/10/16 19:41 11/10/16 19:52 11/10/16 19:52 11/10/16 19:52 11/10/16 19:52 Intake & Output 11/09/16 11/10/16 11/11/16 06:59 06:59 06:59 Intake Total 128 906 400 Output Total 0 0 Balance 128 906 400 Weight 83.1 kg 83 kg Exam: General: Resting comfortably but arouses easily and answers questions appropriately, no acute respiratory distress HEENT: AT/NC, right-sided facial droop, right gaze deviation, Oropharynx is dry , pink Neck: No JVD, trachea midline Chest: Clear to auscultation bilaterally, no wheezes rhonchi or rales CV: Regular rate and rhythm, normal S1 and S2, no murmur, rub, or gallop Abdomen: Soft, nontender to palpation, nondistended, active bowel sounds; no rebound, rigidity, or guarding Extremities: No cyanosis, clubbing; trace edema Neuro:right-sided facial droop, right gaze deviation, blind right eye, tongue deviation to the right, strength 4+ out of 5 left upper extremity 5 out of 5 right upper extremity, strength 4 minus out of 5 left lower extremity, 4+ out of 5 right lower extremity Psych: Normal mood and affect Results Laboratory Results: 11/10/16 05:33 11/10/16 05:33 11/10/16 11/10/16 05:33 05:33 WBC 5.4 RBC 3.45 L Hgb 10.3 L Hct 30.7 L MCV 89 MCH 29.9 MCHC 33.6 RDW 12.7 Plt Count 258 Sodium 139.7 Potassium 3.8 Chloride 104 Carbon Dioxide 24 Anion Gap 12 BUN 30 H Creatinine 1.63 H Est GFR ( Amer) 39 L Est GFR (Non-Af Amer) 32 L Glucose 75 Calcium 9.7 11/06/16 11/06/16 11/06/16 15:37 15:37 21:51 Creatine Kinase 113 119 CK-MB (CK-2) 0.54 Troponin I < 0.012 11/06/16 11/07/16 11/07/16 21:51 04:33 04:33 Creatine Kinase 157 H CK-MB (CK-2) 0.59 0.93 Troponin I 0.022 0.015 Impressions: Venous Doppler Study 11/06/16 00:00 IMPRESSION: NO EVIDENCE DVT OR SVT IN EITHER LEG. Head CT 11/06/16 11:38 IMPRESSION: MILD CHRONIC CHANGES OF ATROPHY AND MICROVASCULAR ISCHEMIA. Old bilateral occipital infarcts which appears stable. Small lacunar infarct it is identified at the level of the basal ganglia on the right and at the level of the brainstem on the right. Other findings as noted above Chest X-Ray 11/06/16 11:39 IMPRESSION: Cardiomegaly. No acute infiltrates KUB X-Ray 11/06/16 13:24 IMPRESSION: Nasogastric tube as above. Head MRI 11/06/16 13:25 IMPRESSION: 1. Punctate tiny right basal ganglia and right occipital lobe infarct. 2. Right mastoid effusion. 3. Otherwise chronic changes, including small vessel disease and old occipital infarcts and brainstem infarcts. Carotid Doppler Study 11/06/16 13:26 IMPRESSION: NO HEMODYNAMICALLY SIGNIFICANT STENOSIS. Modified Barium Swallow 11/07/16 00:00 IMPRESSION: NO EVIDENCE OF PENETRATION OR ASPIRATION. PLEASE REFER TO THE SPEECH PATHOLOGY REPORT FOR FURTHER DETAILS AND RECOMMENDATIONS. Assessment & Plan - Diagnosis (1) CVA (cerebral vascular accident) Qualifiers: CVA mechanism: unspecified Qualified Code(s): I63.9 - Cerebral infarction, unspecified Is this a current diagnosis for this admission?: YesPlan: Patient with acute right basal ganglia and right occipital lobe infarcts. Also seen were small vessel disease and old occipital infarcts and previous brainstem infarcts. Patient reports possible prior history of atrial fibrillation. Patient's son confirm prior history of atrial fibrillation. Patient had been off aggrenox for vitreous hemorrhage. Spoke to patient's opthomologist who is in agreement with patient getting aspirin or any other anticoagulation necessary. Modified barium study recommended for her a thin liquids and smooth pured diet. On Lipitor 40 mg by mouth daily at bedtime. HDL 64 Hemoglobin A1c is 5.6. Hypertensive emergency has resolved and will resume patient's home medications. PT, OT, and discharge planning consults appreciated. Echocardiogram reveals mild grade 1 diastolic dysfunction and a preserved EF greater than 60%. Carotid Doppler reveals no significant stenosis. In light of prior history of atrial fibrillation, on Lovenox and Coumadin. (2) Hypertensive emergency Is this a current diagnosis for this admission?: YesPlan: Patient will be given labetalol Q 10 minutes for hypertensive emergency. Goal systolic blood pressures up to 140. Have started patient on clonidine patch and stopped nitroglycerin patch. Continue hydralazine, lisinopril, Norvasc. (3) Diabetes mellitus type 2 in obese Is this a current diagnosis for this admission?: YesPlan: Patient has been hypoglycemic secondary to poor by mouth intake. Stop metformin and glipizide while patient is taking in very little by mouth. A1c 5.6 reveals well-controlled. Increase patient's IV fluids. (4) Hyperlipidemia Qualifiers: Hyperlipidemia type: unspecified Qualified Code(s): E78.5 - Hyperlipidemia, unspecified Is this a current diagnosis for this admission?: Yes (5) Multi-infarct dementia Qualifiers: Dementia behavioral disturbance: without behavioral disturbance Qualified Code(s): F01.50 - Vascular dementia without behavioral disturbance Is this a current diagnosis for this admission?: Yes (6) Myocardial infarct, old Is this a current diagnosis for this admission?: Yes (7) Seizures Is this a current diagnosis for this admission?: YesPlan: Continue patient on Keppra at this time. (8) Dysphagia Qualifiers: Dysphagia type: unspecified Qualified Code(s): R13.10 - Dysphagia, unspecified Is this a current diagnosis for this admission?: YesPlan: Patient is unable tolerate by mouth here for her physiologic her psychologic reasons, would recommend evaluation for PEG tube. (9) Morbid obesity Is this a current diagnosis for this admission?: Yes (10) Anxiety and depression Is this a current diagnosis for this admission?: YesPlan: Patient has had many recent losses in her family and has been on Celexa for depression. Continue Celexa and Xanax. - Time Time Spent with patient: 25-34 minutes Medications reviewed and adjusted accordingly: Yes Anticipated discharge: Acute Rehab
[2016-11-10] MEDS: ATORVASTATIN CALCIUM 40 MG TABLET NG SCH (22:25)
[2016-11-10] MEDS ORDERED: LEVETIRACETAM ORAL SOLN 500 MG/5 ML UDCUP ONE (23:23)
[2016-11-11] MEDS: LEVETIRACETAM ORAL SOLN 500 MG/5 ML UDCUP PO SCH ×3 (00:23→23:07)
[2016-11-11] MEDS: WARFARIN SODIUM 5 MG TABLET PO SCH (00:25)
[2016-11-11] MEDS: HYDRALAZINE HCL 50 MG TABLET PO SCH ×3 (05:38→23:07)
[2016-11-11 05:57] LABS: ANION GAP 11 (5-19); BLOOD UREA NITROGEN 28 mg/dL (7-20); CALCIUM 9.5 mg/dL (8.4-10.2); CARBON DIOXIDE 24 mmol/L (22-30); CHLORIDE 103 mmol/L (98-107); CREATININE RESULT 1.34 mg/dL (0.52-1.25); GLUCOSE 162 mg/dL (75-110); POTASSIUM 3.6 mmol/L (3.6-5.0); SODIUM 137.5 mmol/L (137-145)
[2016-11-11 06:01] LABS: PROTHROMBIN TIME 14.3 SEC (11.4-15.4)
[2016-11-11] MEDS: INSULIN LISPRO 100 UNIT/ML 3 ML VIAL SUBCUT PRN (08:21)
[2016-11-11] MEDS: ASPIRIN 81 MG TABLET, CHEWABLE PO SCH (10:00)
[2016-11-11] MEDS: AMLODIPINE BESYLATE 10 MG TABLET PO SCH (10:00)
[2016-11-11] MEDS: FAMOTIDINE 20 MG TABLET PO SCH ×2 (10:00→23:07)
[2016-11-11] MEDS: METOPROLOL SUCCINATE 50 MG TAB.SR.24H PO SCH (10:00)
[2016-11-11] MEDS: LISINOPRIL 10 MG TABLET PO SCH (10:01)
[2016-11-11] MEDS: CITALOPRAM HYDROBROMIDE 20 MG TABLET PO SCH (10:01)
[2016-11-11] MEDS: ATROPINE SULFATE 1% OPH SOLN 5 ML BOTTLE OU SCH ×4 (10:02→23:07)
[2016-11-11] MEDS: ENOXAPARIN SODIUM INJ 100 MG/1 ML DISP.SYRIN SUBCUT SCH (10:03)
--- NOTE | 2016-11-11 14:41 | PDOC PROGRESS REPORT ---
Subjective Progress Note for:: 11/11/16 Subjective:: No new issues reported. History is limited by expressive aphasia. Patient denies fever, chills, headache, new focal weakness, chest pain, shortness of breath, abdominal pain, nausea, vomiting, diarrhea, constipation. Physical Exam Vital Signs: Temp Pulse Resp BP Pulse Ox 97.5 F 67 16 120/91 H 100 11/11/16 07:30 11/11/16 08:00 11/11/16 08:00 11/11/16 08:00 11/11/16 08:00 Intake & Output 11/10/16 11/11/16 11/12/16 06:59 06:59 06:59 Intake Total 906 2049 120 Output Total 0 Balance 906 2049 120 Weight 83 kg 85.3 kg General: Resting comfortably but arouses easily and answers questions appropriately, no acute respiratory distress HEENT: AT/NC, right-sided facial droop, right gaze deviation, Oropharynx with moist mucous membranes Neck: No JVD, trachea midline Chest: Clear to auscultation bilaterally, no wheezes rhonchi or rales CV: Regular rate and rhythm, normal S1 and S2, no murmur, rub, or gallop Abdomen: Soft, nontender to palpation, nondistended, active bowel sounds; no rebound, rigidity, or guarding Extremities: No cyanosis, clubbing; trace edema Neuro:right-sided facial droop, expressive aphasia, right gaze deviation, blind right eye, tongue deviation to the right, strength 4+ out of 5 left upper extremity 5 out of 5 right upper extremity, strength 4 minus out of 5 left lower extremity, 4+ out of 5 right lower extremity Psych: Normal mood and affect Results Laboratory Results: 11/10/16 05:33 11/11/16 05:05 11/11/16 05:05 Sodium 137.5 Potassium 3.6 Chloride 103 Carbon Dioxide 24 Anion Gap 11 BUN 28 H Creatinine 1.34 H Est GFR ( Amer) 48 L Est GFR (Non-Af Amer) 40 L Glucose 162 H Calcium 9.5 11/06/16 11/06/16 11/06/16 15:37 15:37 21:51 Creatine Kinase 113 119 CK-MB (CK-2) 0.54 Troponin I < 0.012 11/06/16 11/07/16 11/07/16 21:51 04:33 04:33 Creatine Kinase 157 H CK-MB (CK-2) 0.59 0.93 Troponin I 0.022 0.015 Impressions: Venous Doppler Study 11/06/16 00:00 IMPRESSION: NO EVIDENCE DVT OR SVT IN EITHER LEG. Head CT 11/06/16 11:38 IMPRESSION: MILD CHRONIC CHANGES OF ATROPHY AND MICROVASCULAR ISCHEMIA. Old bilateral occipital infarcts which appears stable. Small lacunar infarct it is identified at the level of the basal ganglia on the right and at the level of the brainstem on the right. Other findings as noted above Chest X-Ray 11/06/16 11:39 IMPRESSION: Cardiomegaly. No acute infiltrates KUB X-Ray 11/06/16 13:24 IMPRESSION: Nasogastric tube as above. Head MRI 11/06/16 13:25 IMPRESSION: 1. Punctate tiny right basal ganglia and right occipital lobe infarct. 2. Right mastoid effusion. 3. Otherwise chronic changes, including small vessel disease and old occipital infarcts and brainstem infarcts. Carotid Doppler Study 11/06/16 13:26 IMPRESSION: NO HEMODYNAMICALLY SIGNIFICANT STENOSIS. Modified Barium Swallow 11/07/16 00:00 IMPRESSION: NO EVIDENCE OF PENETRATION OR ASPIRATION. PLEASE REFER TO THE SPEECH PATHOLOGY REPORT FOR FURTHER DETAILS AND RECOMMENDATIONS. Assessment & Plan - Diagnosis (1) CVA (cerebral vascular accident) Qualifiers: CVA mechanism: unspecified Qualified Code(s): I63.9 - Cerebral infarction, unspecified Is this a current diagnosis for this admission?: YesPlan: Continue anticoagulation for history of paroxysmal atrial fibrillation. Continue Lipitor. Carotid Dopplers negative. Continue PT/OT. Plan outpatient going to acute rehabilitation. (2) Paroxysmal atrial fibrillation Is this a current diagnosis for this admission?: YesPlan: Discontinue Lovenox and Coumadin. Start Eliquis 5 mg twice daily. Continue Toprol-XL 100 mg by mouth daily. (3) Anxiety and depression Is this a current diagnosis for this admission?: YesPlan: Continue Celexa. (4) Dysphagia, oral phase Is this a current diagnosis for this admission?: YesPlan: Speech therapy evaluation appreciated. Modified barium study recommended for her a thin liquids and smooth pured diet. (5) Diabetes mellitus type 2 in obese Is this a current diagnosis for this admission?: YesPlan: Hemoglobin A1c 5.6. Blood glucose readings stable. Continue sliding scale insulin coverage. Continue to hold metformin secondary to renal impairment. Continue to hold glipizide. (6) Hyperlipidemia Qualifiers: Hyperlipidemia type: unspecified Qualified Code(s): E78.5 - Hyperlipidemia, unspecified Is this a current diagnosis for this admission?: Yes (7) Hypertension Is this a current diagnosis for this admission?: YesPlan: Now stable on Norvasc, metoprolol, lisinopril, hydralazine. (8) Multi-infarct dementia Qualifiers: Dementia behavioral disturbance: without behavioral disturbance Qualified Code(s): F01.50 - Vascular dementia without behavioral disturbance Is this a current diagnosis for this admission?: Yes (9) Myocardial infarct, old Is this a current diagnosis for this admission?: Yes (10) Seizures Is this a current diagnosis for this admission?: YesPlan: Continue Keppra. (11) Acute kidney injury Is this a current diagnosis for this admission?: YesPlan: Kidney function improving. Monitor closely on lisinopril. - Time Time Spent with patient: 35 or more minutes Anticipated discharge: Acute Rehab Within: when bed available
[2016-11-11] MEDS ORDERED: LORAZEPAM INJ 2 MG/1 ML VIAL IV PRN (17:29)
[2016-11-11] MEDS: APIXABAN 5 MG TABLET PO SCH (17:39)
[2016-11-11] MEDS ORDERED: LORAZEPAM INJ 2 MG/1 ML VIAL ONE (17:57)
[2016-11-11] MEDS: ATORVASTATIN CALCIUM 40 MG TABLET NG SCH (23:06)
[2016-11-12] MEDS: HYDRALAZINE HCL 50 MG TABLET PO SCH ×3 (06:05→22:23)
[2016-11-12 07:22] LABS: ABSOLUTE EOSINOPHILS # (AUTO) 0.2 10^3/uL (0.0-0.6); ABSOLUTE LYMPHOCYTES (AUTO) 1.3 10^3/uL (0.5-4.7); ABSOLUTE MONOCYTES (AUTO) 0.6 10^3/uL (0.1-1.4); ABSOLUTE NEUT (AUTO) 1.7 10^3/uL (1.7-8.2); BASOPHILS % (AUTO) 0.7 % (0-2); EOSINOPHILS % (AUTO) 5.2 % (0-6); HEMATOCRIT 29.6 % (36.0-47.0); HEMOGLOBIN 9.9 g/dL (12.0-15.5); HGB HCT DIFFERENCE 0.1; LYMPHOCYTES % (AUTO) 34.5 % (13-45); MEAN CORPUSCULAR HEMOGLOBIN 29.8 pg (27.0-33.4); MEAN CORPUSCULAR HGB CONC 33.4 g/dL (32.0-36.0); MEAN CORPUSCULAR VOLUME 89 fl (80-97); MONOCYTES % (AUTO) 15.5 % (3-13); RED BLOOD COUNT 3.31 10^6/uL (3.72-5.28); RED CELL DISTRIBUTION WIDTH 12.7 % (11.5-14.0); SEGMENTED NEUTROPHILS % (AUTO) 44.1 % (42-78); WHITE BLOOD COUNT 3.8 10^3/uL (4.0-10.5)
[2016-11-12 07:35] LABS: ANION GAP 9 (5-19); BLOOD UREA NITROGEN 19 mg/dL (7-20); CALCIUM 9.4 mg/dL (8.4-10.2); CARBON DIOXIDE 26 mmol/L (22-30); CHLORIDE 104 mmol/L (98-107); CREATININE RESULT 1.05 mg/dL (0.52-1.25); GLUCOSE 131 mg/dL (75-110); POTASSIUM 3.6 mmol/L (3.6-5.0); SODIUM 139.2 mmol/L (137-145)
[2016-11-12 08:16] LABS: ABSOLUTE EOSINOPHILS # (AUTO) 0.2 10^3/uL (0.0-0.6); ABSOLUTE LYMPHOCYTES (AUTO) 1.3 10^3/uL (0.5-4.7); ABSOLUTE MONOCYTES (AUTO) 0.6 10^3/uL (0.1-1.4); ABSOLUTE NEUT (AUTO) 1.7 10^3/uL (1.7-8.2); BASOPHILS % (AUTO) 1.2 % (0-2); EOSINOPHILS % (AUTO) 5.5 % (0-6); HEMATOCRIT 30.7 % (36.0-47.0); HEMOGLOBIN 10.5 g/dL (12.0-15.5); HGB HCT DIFFERENCE 0.8; LYMPHOCYTES % (AUTO) 34.8 % (13-45); MEAN CORPUSCULAR HEMOGLOBIN 30.9 pg (27.0-33.4); MEAN CORPUSCULAR HGB CONC 34.4 g/dL (32.0-36.0); MEAN CORPUSCULAR VOLUME 90 fl (80-97); MONOCYTES % (AUTO) 14.4 % (3-13); RED BLOOD COUNT 3.41 10^6/uL (3.72-5.28); RED CELL DISTRIBUTION WIDTH 12.6 % (11.5-14.0); SEGMENTED NEUTROPHILS % (AUTO) 44.1 % (42-78); WHITE BLOOD COUNT 3.8 10^3/uL (4.0-10.5)
[2016-11-12 08:34] LABS: ANION GAP 10 (5-19); BLOOD UREA NITROGEN 19 mg/dL (7-20); CALCIUM 9.2 mg/dL (8.4-10.2); CARBON DIOXIDE 25 mmol/L (22-30); CHLORIDE 104 mmol/L (98-107); CREATININE RESULT 0.94 mg/dL (0.52-1.25); GLUCOSE 117 mg/dL (75-110); POTASSIUM 3.8 mmol/L (3.6-5.0); SODIUM 139.3 mmol/L (137-145)
[2016-11-12] MEDS: FAMOTIDINE 20 MG TABLET PO SCH ×2 (10:10→22:23)
[2016-11-12] MEDS: ASPIRIN 81 MG TABLET, ENT COATED PO SCH (10:11)
[2016-11-12] MEDS: APIXABAN 5 MG TABLET PO SCH ×2 (10:11→17:48)
[2016-11-12] MEDS: CITALOPRAM HYDROBROMIDE 20 MG TABLET PO SCH (10:11)
[2016-11-12] MEDS: LISINOPRIL 10 MG TABLET PO SCH (10:14)
[2016-11-12] MEDS: AMLODIPINE BESYLATE 10 MG TABLET PO SCH (10:15)
[2016-11-12] MEDS: ATROPINE SULFATE 1% OPH SOLN 5 ML BOTTLE OU SCH ×4 (10:16→22:22)
[2016-11-12] MEDS: LEVETIRACETAM ORAL SOLN 500 MG/5 ML UDCUP PO SCH ×2 (10:18→22:23)
[2016-11-12] MEDS: DEXTROSE 5%-1/2 NORMAL SALINE 1,000 ML IV PRN (10:19)
[2016-11-12] MEDS: METOPROLOL SUCCINATE 50 MG TAB.SR.24H PO SCH (10:22)
[2016-11-12] MEDS: INSULIN LISPRO 100 UNIT/ML 3 ML VIAL SUBCUT PRN (12:15)
--- NOTE | 2016-11-12 16:21 | PDOC PROGRESS REPORT ---
Subjective Progress Note for:: 11/12/16 Subjective:: Patient is has some issues with confusion over the past 24 hours. She seems to be better today however. Patient denies fever, chills, headache, new focal weakness, chest pain, shortness of breath, abdominal pain, nausea, vomiting, diarrhea, constipation. Physical Exam Vital Signs: Temp Pulse Resp BP Pulse Ox 97.9 F 53 L 16 157/56 H 100 11/12/16 11:48 11/12/16 12:00 11/12/16 12:00 11/12/16 12:00 11/12/16 12:00 Intake & Output 11/11/16 11/12/16 11/13/16 06:59 06:59 06:59 Intake Total 2049 2584 Balance 2049 2584 Weight 85.3 kg 85 kg General: Resting comfortably but arouses easily and answers questions appropriately, no acute respiratory distress HEENT: AT/NC, right-sided facial droop, right gaze deviation, Oropharynx with moist mucous membranes Neck: No JVD, trachea midline Chest: Clear to auscultation bilaterally, no wheezes rhonchi or rales CV: Regular rate and rhythm, normal S1 and S2, no murmur, rub, or gallop Abdomen: Soft, nontender to palpation, nondistended, active bowel sounds; no rebound, rigidity, or guarding Extremities: No cyanosis, clubbing; trace edema Neuro:right-sided facial droop, expressive aphasia, right gaze deviation, blind right eye, tongue deviation to the right, strength 4+ out of 5 left upper extremity 5 out of 5 right upper extremity, strength 4 minus out of 5 left lower extremity, 4+ out of 5 right lower extremity Psych: Normal mood and affect Results Laboratory Results: 11/12/16 08:05 11/12/16 08:05 11/12/16 11/12/16 11/12/16 06:51 06:51 08:05 WBC 3.8 L 3.8 L RBC 3.31 L 3.41 L Hgb 9.9 L 10.5 L Hct 29.6 L 30.7 L MCV 89 90 MCH 29.8 30.9 MCHC 33.4 34.4 RDW 12.7 12.6 Plt Count 226 245 Seg Neutrophils % 44.1 44.1 Lymphocytes % 34.5 34.8 Monocytes % 15.5 H 14.4 H Eosinophils % 5.2 5.5 Basophils % 0.7 1.2 Absolute Neutrophils 1.7 1.7 Absolute Lymphocytes 1.3 1.3 Absolute Monocytes 0.6 0.6 Absolute Eosinophils 0.2 0.2 Absolute Basophils 0.0 0.0 Sodium 139.2 Potassium 3.6 Chloride 104 Carbon Dioxide 26 Anion Gap 9 BUN 19 Creatinine 1.05 Est GFR ( Amer) > 60 Est GFR (Non-Af Amer) 53 L Glucose 131 H Calcium 9.4 11/12/16 08:05 WBC RBC Hgb Hct MCV MCH MCHC RDW Plt Count Seg Neutrophils % Lymphocytes % Monocytes % Eosinophils % Basophils % Absolute Neutrophils Absolute Lymphocytes Absolute Monocytes Absolute Eosinophils Absolute Basophils Sodium 139.3 Potassium 3.8 Chloride 104 Carbon Dioxide 25 Anion Gap 10 BUN 19 Creatinine 0.94 Est GFR ( Amer) > 60 Est GFR (Non-Af Amer) > 60 Glucose 117 H Calcium 9.2 11/06/16 11/06/16 11/06/16 15:37 15:37 21:51 Creatine Kinase 113 119 CK-MB (CK-2) 0.54 Troponin I < 0.012 11/06/16 11/07/16 11/07/16 21:51 04:33 04:33 Creatine Kinase 157 H CK-MB (CK-2) 0.59 0.93 Troponin I 0.022 0.015 Impressions: Venous Doppler Study 11/06/16 00:00 IMPRESSION: NO EVIDENCE DVT OR SVT IN EITHER LEG. KUB X-Ray 11/06/16 13:24 IMPRESSION: Nasogastric tube as above. Head MRI 11/06/16 13:25 IMPRESSION: 1. Punctate tiny right basal ganglia and right occipital lobe infarct. 2. Right mastoid effusion. 3. Otherwise chronic changes, including small vessel disease and old occipital infarcts and brainstem infarcts. Carotid Doppler Study 11/06/16 13:26 IMPRESSION: NO HEMODYNAMICALLY SIGNIFICANT STENOSIS. Modified Barium Swallow 11/07/16 00:00 IMPRESSION: NO EVIDENCE OF PENETRATION OR ASPIRATION. PLEASE REFER TO THE SPEECH PATHOLOGY REPORT FOR FURTHER DETAILS AND RECOMMENDATIONS. Head CT 11/12/16 00:00 IMPRESSION: 1. No acute intracranial abnormality identified. No significant changes from prior study. 2. Chronic microvascular ischemic disease changes throughout the supratentorial white matter. Old areas of encephalomalacia in the occipital lobes likely related prior infarcts. Age-related brain matter volume loss with compensatory ventriculomegaly. Chest X-Ray 11/12/16 07:07 IMPRESSION: NO ACUTE RADIOGRAPHIC FINDING IN THE CHEST. Assessment & Plan - Diagnosis (1) CVA (cerebral vascular accident) Qualifiers: CVA mechanism: unspecified Qualified Code(s): I63.9 - Cerebral infarction, unspecified Is this a current diagnosis for this admission?: YesPlan: Continue anticoagulation for history of paroxysmal atrial fibrillation. Continue Lipitor. Carotid Dopplers negative. Continue PT/OT. Plan outpatient going to acute rehabilitation. (2) Paroxysmal atrial fibrillation Is this a current diagnosis for this admission?: YesPlan: Continue Eliquis 5 mg twice daily. Continue Toprol-XL 100 mg by mouth daily. (3) Anxiety and depression Is this a current diagnosis for this admission?: YesPlan: Continue Celexa. (4) Dysphagia, oral phase Is this a current diagnosis for this admission?: YesPlan: Speech therapy evaluation appreciated. Modified barium study recommended for her a thin liquids and smooth pured diet. (5) Diabetes mellitus type 2 in obese Is this a current diagnosis for this admission?: YesPlan: Hemoglobin A1c 5.6. Blood glucose readings stable. Continue sliding scale insulin coverage. Continue to hold metformin secondary to renal impairment. Continue to hold glipizide. (6) Hyperlipidemia Qualifiers: Hyperlipidemia type: unspecified Qualified Code(s): E78.5 - Hyperlipidemia, unspecified Is this a current diagnosis for this admission?: Yes (7) Hypertension Is this a current diagnosis for this admission?: YesPlan: Now stable on Norvasc, metoprolol, lisinopril, hydralazine. (8) Multi-infarct dementia Qualifiers: Dementia behavioral disturbance: without behavioral disturbance Qualified Code(s): F01.50 - Vascular dementia without behavioral disturbance Is this a current diagnosis for this admission?: Yes (9) Myocardial infarct, old Is this a current diagnosis for this admission?: Yes (10) Seizures Is this a current diagnosis for this admission?: YesPlan: Continue Keppra. (11) Acute kidney injury Is this a current diagnosis for this admission?: YesPlan: Resolved. Monitor closely on lisinopril. (12) Encephalopathy Is this a current diagnosis for this admission?: YesPlan: Resolved. Follow-up head CT on 11/12/2016 shows no acute process. - Time Time Spent with patient: 25-34 minutes
[2016-11-12] MEDS: ATORVASTATIN CALCIUM 40 MG TABLET NG SCH (22:23)
[2016-11-13] MEDS: DEXTROSE 5%-1/2 NORMAL SALINE 1,000 ML IV PRN (02:29)
[2016-11-13] MEDS: HYDRALAZINE HCL 50 MG TABLET PO SCH ×2 (06:29→13:59)
[2016-11-13 08:02] LABS: ABSOLUTE EOSINOPHILS # (AUTO) 0.2 10^3/uL (0.0-0.6); ABSOLUTE LYMPHOCYTES (AUTO) 1.3 10^3/uL (0.5-4.7); ABSOLUTE MONOCYTES (AUTO) 0.5 10^3/uL (0.1-1.4); ABSOLUTE NEUT (AUTO) 1.7 10^3/uL (1.7-8.2); BASOPHILS % (AUTO) 0.6 % (0-2); EOSINOPHILS % (AUTO) 4.7 % (0-6); HEMOGLOBIN 9.2 g/dL (12.0-15.5); HGB HCT DIFFERENCE -0.4; LYMPHOCYTES % (AUTO) 34.5 % (13-45); MEAN CORPUSCULAR HEMOGLOBIN 29.5 pg (27.0-33.4); MEAN CORPUSCULAR HGB CONC 33.1 g/dL (32.0-36.0); MEAN CORPUSCULAR VOLUME 89 fl (80-97); RED BLOOD COUNT 3.13 10^6/uL (3.72-5.28); RED CELL DISTRIBUTION WIDTH 12.4 % (11.5-14.0); SEGMENTED NEUTROPHILS % (AUTO) 46.2 % (42-78); WHITE BLOOD COUNT 3.7 10^3/uL (4.0-10.5)
[2016-11-13 08:22] LABS: ANION GAP 8 (5-19); BLOOD UREA NITROGEN 11 mg/dL (7-20); CARBON DIOXIDE 26 mmol/L (22-30); CHLORIDE 106 mmol/L (98-107); GLUCOSE 131 mg/dL (75-110); POTASSIUM 3.8 mmol/L (3.6-5.0); SODIUM 140.2 mmol/L (137-145)
--- NOTE | 2016-11-13 10:31 | PDOC TRANSFER SUMMARY ---
General - Admit/Disc Date/PCP Admission Date/Primary Care Provider: 11/06/16 13:23 HAYLEY PETERSEN NP Discharge Date: 11/13/16 - Discharge Diagnosis (1) CVA (cerebral vascular accident) Is this a current diagnosis for this admission?: Yes (2) Paroxysmal atrial fibrillation Is this a current diagnosis for this admission?: Yes (3) Anxiety and depression Is this a current diagnosis for this admission?: Yes (4) Dysphagia, oral phase Is this a current diagnosis for this admission?: Yes (5) Diabetes mellitus type 2 in obese Is this a current diagnosis for this admission?: Yes (6) Hyperlipidemia Is this a current diagnosis for this admission?: Yes (7) Hypertension Is this a current diagnosis for this admission?: Yes (8) Multi-infarct dementia Is this a current diagnosis for this admission?: Yes (9) Myocardial infarct, old Is this a current diagnosis for this admission?: Yes (10) Seizures Is this a current diagnosis for this admission?: Yes (11) Acute kidney injury Is this a current diagnosis for this admission?: Yes (12) Encephalopathy Is this a current diagnosis for this admission?: Yes - Additional Information Resuscitation Status: Do Not Resuscitate Discharge Diet: Cardiac, Diabetic Discharge Activity: Activity As Tolerated Home Medications: Amlodipine Besylate [Norvasc 10 mg Tablet] 10 mg PO DAILY 11/06/16 Atropine Sulfate [Atropine 1% Oph Soln 5 ml] 1 drop OU QID 11/06/16 Cholecalciferol (Vitamin D3) [Vitamin D3 5000 unit Capsule] 5,000 unit PO DAILY 11/06/16 Citalopram Hydrobromide [Celexa 10 mg Tablet] 10 mg PO QAM 11/06/16 Lisinopril [Prinivil 40 mg Tablet] 40 mg PO DAILY 11/06/16 Metoprolol Succinate [Toprol Xl] 100 mg PO DAILY 11/06/16 Simvastatin [Zocor 20 mg Tablet] 20 mg PO QPM 11/06/16 Acetaminophen [Tylenol 325 mg Tablet] 650 mg PO Q4HP PRN tablet 11/13/16 Alprazolam [Xanax 0.25 mg Tablet] 0.25 mg PO Q6HP PRN #10 tablet 11/13/16 Apixaban [Eliquis 5 mg Tablet] 5 mg PO BID tablet 02/23/17 Aspirin [Ecotrin 81 mg EC Tablet] 81 mg PO DAILY tabec 11/13/16 Famotidine [Pepcid 20 mg Tablet] 20 mg PO Q12 #60 tablet 11/13/16 Hydralazine HCl [Apresoline 50 mg Tablet] 50 mg PO Q8 #90 tablet 11/13/16 Hydrochlorothiazide [Hydrodiuril 12.5 mg Capsule] 12.5 mg PO DAILY #0 11/13/16 Insulin Aspart [Novolog Flexpen] 0 unit SUBCUT .SLD SCALE #1 pen 11/13/16 Levetiracetam [Keppra 500 mg Tablet] 500 mg PO Q12 #60 tablet 11/13/16 History of Present Illness Admission Date/PCP: 11/06/16 13:23 HAYLEY PETERSEN NP Patient complains of: Inability to walk History of Present Illness: DAVID SALAS is a 61 year old female with a past medical history of diabetes mellitus, hypertension, hyperlipidemia, previous CVA, seizure disorder, CAD, and recent cataract surgery who presents to the emergency department with an inability to walk. Patient states that she had been doing well and feeling fine and her normal state of health prior to going to bed last evening. She reports no changes in her medications prior to today. She did not take her medications today. Patient has inconsistently been taking Aggrenox due to recent cataract surgery in September. Patient had apparently a subsequent hyphema. Upon presentation to the emergency department, patient is found to have right-sided facial drooping, right-sided gaze preference, dysarthria, dysphasia, and confusion. Patient was found to be hypertensive with a blood pressure of 157/121. Patient reports history of obstructive sleep apnea which is currently untreated. She is referred to the hospitalist service for acute CVA. Hospital Course Hospital Course: Patient was admitted with acute stroke. MRI showed right basal ganglia and right occipital stroke. Carotid Doppler showed no hemodynamically significant stenosis. Patient has been placed on aspirin 81 mg daily. Patient has also been placed on Eliquis secondary to atrial fibrillation. Patient was already taking statin. She will be discharged on previous dose of simvastatin. Patient has had physical therapy evaluation while in the hospital and will need ongoing rehabilitative care after discharge. Patient is also had speech therapy evaluation the hospital and has been recommended to have a pured diet. With regard to paroxysmal atrial fibrillation, as mentioned above patient has been started on Toprol XL for heart rate control and Eliquis for stroke prevention. Heart rate is stable at time of discharge. With regard to diabetes mellitus, patient's metformin was discontinued secondary to renal impairment and glipizide was held. Hemoglobin A1c is 5.6. Patient is continued on sliding scale insulin coverage. With regard to hypertension patient is currently on Norvasc, metoprolol, lisinopril, hydralazine. Hydrochlorothiazide will be reinitiated on discharge. Medications may need further outpatient titration. Patient had acute kidney injury this admission. This is now resolved. Patient has pre-existing seizure disorder and has been on Keppra prior to admission. She has not had any seizure activity while in the hospital. Physical Exam Vital Signs: Temp Pulse Resp BP Pulse Ox 97.6 F 59 L 18 151/69 H 100 11/13/16 07:07 11/13/16 08:00 11/13/16 08:00 11/13/16 08:00 11/13/16 08:00 Intake & Output 11/12/16 11/13/16 11/14/16 06:59 06:59 06:59 Intake Total 2585 3510 Balance 2585 3510 Weight 85 kg 86.7 kg General: Resting comfortably but arouses easily and answers questions appropriately, no acute respiratory distress HEENT: AT/NC, right-sided facial droop, right gaze deviation, Oropharynx with moist mucous membranes Neck: No JVD, trachea midline Chest: Clear to auscultation bilaterally, no wheezes rhonchi or rales CV: Regular rate and rhythm, normal S1 and S2, no murmur, rub, or gallop Abdomen: Soft, nontender to palpation, nondistended, active bowel sounds; no rebound, rigidity, or guarding Extremities: No cyanosis, clubbing; trace edema Neuro:right-sided facial droop, expressive aphasia, right gaze deviation, blind right eye, tongue deviation to the right, strength 4+ out of 5 left upper extremity 5 out of 5 right upper extremity, strength 4 minus out of 5 left lower extremity, 4+ out of 5 right lower extremity Psych: Normal mood and affect Results Laboratory Results: 11/13/16 07:15 11/13/16 07:15 11/13/16 11/13/16 07:15 07:15 WBC 3.7 L RBC 3.13 L Hgb 9.2 L Hct 28.0 L MCV 89 MCH 29.5 MCHC 33.1 RDW 12.4 Plt Count 211 Seg Neutrophils % 46.2 Lymphocytes % 34.5 Monocytes % 14.0 H Eosinophils % 4.7 Basophils % 0.6 Absolute Neutrophils 1.7 Absolute Lymphocytes 1.3 Absolute Monocytes 0.5 Absolute Eosinophils 0.2 Absolute Basophils 0.0 Sodium 140.2 Potassium 3.8 Chloride 106 Carbon Dioxide 26 Anion Gap 8 BUN 11 Creatinine 0.90 Est GFR ( Amer) > 60 Est GFR (Non-Af Amer) > 60 Glucose 131 H Calcium 9.0 11/06/16 11/06/16 11/06/16 15:37 15:37 21:51 Creatine Kinase 113 119 CK-MB (CK-2) 0.54 Troponin I < 0.012 11/06/16 11/07/16 11/07/16 21:51 04:33 04:33 Creatine Kinase 157 H CK-MB (CK-2) 0.59 0.93 Troponin I 0.022 0.015 Impressions: Venous Doppler Study 11/06/16 00:00 IMPRESSION: NO EVIDENCE DVT OR SVT IN EITHER LEG. KUB X-Ray 11/06/16 13:24 IMPRESSION: Nasogastric tube as above. Head MRI 11/06/16 13:25 IMPRESSION: 1. Punctate tiny right basal ganglia and right occipital lobe infarct. 2. Right mastoid effusion. 3. Otherwise chronic changes, including small vessel disease and old occipital infarcts and brainstem infarcts. Carotid Doppler Study 11/06/16 13:26 IMPRESSION: NO HEMODYNAMICALLY SIGNIFICANT STENOSIS. Modified Barium Swallow 11/07/16 00:00 IMPRESSION: NO EVIDENCE OF PENETRATION OR ASPIRATION. PLEASE REFER TO THE SPEECH PATHOLOGY REPORT FOR FURTHER DETAILS AND RECOMMENDATIONS. Head CT 11/12/16 00:00 IMPRESSION: 1. No acute intracranial abnormality identified. No significant changes from prior study. 2. Chronic microvascular ischemic disease changes throughout the supratentorial white matter. Old areas of encephalomalacia in the occipital lobes likely related prior infarcts. Age-related brain matter volume loss with compensatory ventriculomegaly. Chest X-Ray 11/12/16 07:07 IMPRESSION: NO ACUTE RADIOGRAPHIC FINDING IN THE CHEST. Transfer Plan - Time Spent with Patient Time spent with patient: Greater than 30 Minutes Qualifiers PATEINT BEING DISCHARGED WITH ANY OF THE FOLLOWING DIAGNOSIS?: Stroke VTE patient discharged on overlapping Therapy?: Yes Stroke Pt being discharged on Anti-thrombolytic therapy?: Yes Stroke Pt being discharged on Anti-coagulation therapy?: Yes Stroke Pt being discharged on Statins?: Yes
[2016-11-13 13:05] VITALS: BP 169/62
[2016-11-13] MEDS: ASPIRIN 81 MG TABLET, ENT COATED PO SCH (13:05)
[2016-11-13] MEDS: CITALOPRAM HYDROBROMIDE 20 MG TABLET PO SCH (13:06)
[2016-11-13] MEDS: AMLODIPINE BESYLATE 10 MG TABLET PO SCH (13:06)
[2016-11-13] MEDS: FAMOTIDINE 20 MG TABLET PO SCH (13:06)
[2016-11-13] MEDS: APIXABAN 5 MG TABLET PO SCH (13:07)
[2016-11-13] MEDS: LEVETIRACETAM ORAL SOLN 500 MG/5 ML UDCUP PO SCH (13:07)
[2016-11-13] MEDS: LISINOPRIL 10 MG TABLET PO SCH (13:07)
[2016-11-13] MEDS: ATROPINE SULFATE 1% OPH SOLN 5 ML BOTTLE OU SCH ×2 (13:08→13:59)
[2016-11-13] MEDS: METOPROLOL SUCCINATE 50 MG TAB.SR.24H PO SCH (13:08)
== END 2016-11-13 22:02 | DRG 65 ==
LOC: ER 11:35 → EH 13:23 → 3S 13:23 → UNDOADMIN 13:23 → EH 14:31 → 3S 15:39 → EH 15:39 → 3S 15:55 → EH 15:56
PROVIDERS: ADMIT Emergency Medicine; ATTEND Emergency Medicine
PROC: 0D9670Z Drainage of Stomach with Drainage Device, Via Natural or Artificial Opening (ICD-10-PCS; principal; 2016-11-06)
DX: I63.9 Cerebral infarction, unspecified (principal); I16.1 Hypertensive emergency; N17.9 Acute kidney failure, unspecified; I48.0 Paroxysmal atrial fibrillation; F41.9 Anxiety disorder, unspecified; F32.9 Major depressive disorder, single episode, unspecified; R13.11 Dysphagia, oral phase; E11.9 Type 2 diabetes mellitus without complications; E66.01 Morbid (severe) obesity due to excess calories; Z68.36 Body mass index [BMI] 36.0-36.9, adult; E78.5 Hyperlipidemia, unspecified; I10 Essential (primary) hypertension; F01.50 Vascular dementia, unspecified severity, without behavioral disturbance, psychotic disturbance, mood disturbance, and anxiety; G40.909 Epilepsy, unspecified, not intractable, without status epilepticus; I25.10 Atherosclerotic heart disease of native coronary artery without angina pectoris; R47.1 Dysarthria and anarthria; R29.810 Facial weakness; G47.33 Obstructive sleep apnea (adult) (pediatric); I25.2 Old myocardial infarction; Z66 Do not resuscitate; Z78.1 Physical restraint status; Z79.82 Long term (current) use of aspirin; Z79.4 Long term (current) use of insulin; Z79.899 Other long term (current) drug therapy; Z98.49 Cataract extraction status, unspecified eye; Z88.6 Allergy status to analgesic agent; Z90.710 Acquired absence of both cervix and uterus; Z82.3 Family history of stroke; Z82.49 Family history of ischemic heart disease and other diseases of the circulatory system
CPT/HCPCS: 36415; 70450; 70551; 71010; 74000; 74230; 80048; 80053; 80061; 82550; 82553; 82962; 83036; 84484; 85025; 85027; 85610; 85730; 93005; 93010; 93306; 93880; 93970; 96372; 96374; 99291; G8978-GP; G8979-GP; G8987-GO; G8988-GO; G8996-GN; G8997-GN; J0360; J1200; J1644; J1650; J1815; J1953; J2060; J3490; S0028

== ENCOUNTER 2017-02-01 20:51 | Emergency (ER) | payer MEDICARE ==
--- NOTE | 2017-02-01 21:52 | ER Document Report ---
ED General - General Chief Complaint: Fall Stated Complaint: FALL,NO COMPLAINTS Time Seen by Provider: 02/01/17 21:43 Notes: Patient is a 61-year-old female past medical history of recent CVA with residual ambulatory difficulties who presents after falling from a wheelchair when trying to transfer from one chair to the other. States she landed directly on her buttock did not hit her back, head or neck. She denies any pain at time of my assessment. She has had increasing falls over the last 2 weeks for the continues to work with physical therapy. She denies any weakness, numbness, back pain. She has not seen her primary care doctor regarding today's concerns. TRAVEL OUTSIDE OF THE [place] IN LAST 30 DAYS: No - HPI Onset: Just prior to arrival Onset/Duration: Sudden Quality of pain: No pain Severity: None Pain Level: Denies Associated symptoms: None Exacerbated by: Denies Relieved by: Denies Similar symptoms previously: Yes Recently seen / treated by doctor: No - Related Data Allergies/Adverse Reactions: No Known Allergies Allergy (Unverified 11/07/16 17:05) Past Medical History - General Information source: Patient, Relative - Social History Smoking Status: Never Smoker Chew tobacco use (# tins/day): No Frequency of alcohol use: None Drug Abuse: None Lives with: Spouse/Significant other Family History: CAD, CVA, Hypertension Patient has suicidal ideation: No Patient has homicidal ideation: No - Past Medical History Cardiac Medical History: Reports: Hx Heart Attack - 2006, Hx Hypercholesterolemia, Hx Hypertension Pulmonary Medical History: Denies: Hx Asthma Neurological Medical History: Reports: Hx Cerebrovascular Accident - X 2, Hx Seizures - LAST SEIZURE APPROX 6 MO AGO Endocrine Medical History: Reports: Hx Diabetes Mellitus Type 2 Renal/ Medical History: Denies: Hx Peritoneal Dialysis GI Medical History: Reports: Hx Gastroesophageal Reflux Disease, Hx Ulcer. Denies: Hx Hepatitis, Hx Hiatal Hernia Psychiatric Medical History: Reports: Hx Dementia - Multi-infarct, Hx Depression Infectious Medical History: Denies: Hx Hepatitis Past Surgical History: Reports: Hx Cardiac Catheterization, Hx Hysterectomy. Denies: Hx Mastectomy, Hx Open Heart Surgery, Hx Pacemaker - Immunizations Hx Diphtheria, Pertussis, Tetanus Vaccination: No Review of Systems - Review of Systems Notes: Constitutional: Negative for fever. Eyes: Negative for visual changes. ENT: Negative for facial injury Cardiovascular: Negative for chest injury. Respiratory: Negative for shortness of breath. Gastrointestinal: Negative for abdominal injury. Genitourinary: Negative for genital injury Musculoskeletal: Negative for back injury. Skin: Negative for laceration/abrasions. Neurological: Negative for head injury. Physical Exam - Vital signs Vitals: Temp Pulse Resp BP Pulse Ox 98.1 F 74 17 171/78 H 97 02/01/17 21:01 02/01/17 21:01 02/01/17 21:01 02/01/17 21:01 02/01/17 21:01 Interpretation: Hypertensive Notes: PHYSICAL EXAMINATION: GENERAL: Well-appearing, no acute distress. HEAD: Atraumatic, normocephalic. EYES: Pupils equal round and reactive to light, extraocular movements intact, sclera anicteric, conjunctiva are normal. ENT: nares patent, no oral pharyngeal trauma. No hemotympanum, no Beavers's sign , no raccoon eyes. NECK: No midline cervical spine tenderness. Patient able to move their head to 45 bilaterally without any discomfort. LUNGS: Breath sounds clear to auscultation bilaterally and equal. No wheezes rales or rhonchi. HEART: Regular rate and rhythm without murmurs. CHEST WALL: No ecchymosis over the chest wall. ABDOMEN: Soft, nontender, normoactive bowel sounds. No guarding, no rebound. No abdominal bruising EXTREMITIES: Normal range of motion, no pitting or edema. No long bone deformities. BACK: No midline spinal tenderness, step-offs, or deformities. NEUROLOGICAL: Face symmetric. Tongue protrudes midline. Extraocular motions intact. Pupils are 2 mm and equally reactive. 5 out of 5 strength in both the distal and proximal upper and lower extremities bilaterally. Sensation is grossly intact throughout. PSYCH: Normal mood, normal affect. SKIN: Warm, Dry, normal turgor, no rashes or lesions noted. Course - Re-evaluation Re-evalutation: 02/01/17 21:50 Patient presents after mechanical fall in which she landed on her buttock when transferring from one chair to another. She denies any significant pain to the area. She arrives without complaints. Family mentions a concern that she has become increasingly weak over the past several weeks but she recently had a stroke and is currently working with physical therapy. She has no focal neurologic deficits on exam. Trauma assessment is otherwise unremarkable. Patient for imaging as patient did not hit her head or neck and has no midline back tenderness and denies any actual back pain.At this time will discharge with return precautions and follow-up recommendations. Verbal discharge instructions given a the bedside and opportunity for questions given. Medication warnings reviewed. Patient is in agreement with this plan and has verbalized understanding of return precautions and the need for primary care follow-up in the next 24-72 hours. - Vital Signs Vital signs: Temp Pulse Resp BP Pulse Ox 98.1 F 74 17 164/78 H 97 02/01/17 21:01 02/01/17 21:01 02/01/17 21:01 02/01/17 22:01 02/01/17 21:01 Discharge - Discharge Clinical Impression: Fall Qualifiers: Encounter type: initial encounter Qualified Code(s): W19.XXXA - Unspecified fall, initial encounter Condition: Good Disposition: HOME, SELF-CARE Additional Instructions: You have been seen in the Emergency Department (ED) today following a fall your workup today did not reveal any injuries that require you to stay in the hospital. You can expect, though, to be stiff and sore for the next several days. Take Tylenol as needed for pain. You can apply a hot pack or electric heating pad to the sore areas. You can also use topical "Aspercreme with lidocaine" to sore areas as needed. Please follow up with your primary care doctor as soon as possible regarding today's ED visit and your recent accident. Call your doctor or return to the ED if you develop a sudden or severe headache , confusion, slurred speech, facial droop, weakness or numbness in any arm or leg, extreme fatigue, vomiting more than two times, severe abdominal pain, or other symptoms that concern you.
[2017-02-01 22:27] VITALS: BP 164/78
== END 2017-02-01 22:30 | disposition home or self-care (01) ==
LOC: ER 20:51
DX: Z04.3 Encounter for examination and observation following other accident (principal); I69.398 Other sequelae of cerebral infarction; R26.2 Difficulty in walking, not elsewhere classified; R29.6 Repeated falls; I25.2 Old myocardial infarction; I10 Essential (primary) hypertension; E11.9 Type 2 diabetes mellitus without complications
CPT/HCPCS: 99284

== ENCOUNTER 2017-02-12 20:49 | Emergency (ER) | payer MEDICARE ==
[2017-02-12 21:48] LABS: ABSOLUTE BASOPHILS # (AUTO) 0.1 10^3/uL (0.0-0.2); ABSOLUTE EOSINOPHILS # (AUTO) 0.2 10^3/uL (0.0-0.6); ABSOLUTE LYMPHOCYTES (AUTO) 1.8 10^3/uL (0.5-4.7); ABSOLUTE MONOCYTES (AUTO) 0.5 10^3/uL (0.1-1.4); ABSOLUTE NEUT (AUTO) 2.2 10^3/uL (1.7-8.2); BASOPHILS % (AUTO) 1.2 % (0-2); EOSINOPHILS % (AUTO) 4.2 % (0-6); HEMATOCRIT 30.9 % (36.0-47.0); HEMOGLOBIN 9.9 g/dL (12.0-15.5); HGB HCT DIFFERENCE -1.2; LYMPHOCYTES % (AUTO) 38.2 % (13-45); MEAN CORPUSCULAR HEMOGLOBIN 28.6 pg (27.0-33.4); MEAN CORPUSCULAR HGB CONC 31.9 g/dL (32.0-36.0); MEAN CORPUSCULAR VOLUME 90 fl (80-97); MONOCYTES % (AUTO) 9.6 % (3-13); RED BLOOD COUNT 3.46 10^6/uL (3.72-5.28); RED CELL DISTRIBUTION WIDTH 13.6 % (11.5-14.0); SEGMENTED NEUTROPHILS % (AUTO) 46.8 % (42-78); WHITE BLOOD COUNT 4.8 10^3/uL (4.0-10.5)
[2017-02-12 22:01] LABS: ALANINE AMINOTRANSFERASE 23 U/L (9-52); ALBUMIN 4.1 g/dL (3.5-5.0); ALKALINE PHOSPHATASE 56 U/L (38-126); ANION GAP 17 (5-19); ASPARTATE AMINO TRANSFERASE 29 U/L (14-36); BILIRUBIN,DIRECT 0.3 mg/dL (0.0-0.4); BILIRUBIN,TOTAL 0.7 mg/dL (0.2-1.3); BLOOD UREA NITROGEN 24 mg/dL (7-20); CALCIUM 10.3 mg/dL (8.4-10.2); CARBON DIOXIDE 28 mmol/L (22-30); CHLORIDE 98 mmol/L (98-107); CREATININE RESULT 2.35 mg/dL (0.52-1.25); GLUCOSE 91 mg/dL (75-110); LIPASE 118.2 U/L (23-300); POTASSIUM 3.4 mmol/L (3.6-5.0); SODIUM 142.8 mmol/L (137-145); TOTAL PROTEIN 7.9 g/dL (6.3-8.2)
--- NOTE | 2017-02-13 00:13 | ER Document Report ---
ED General - General Chief Complaint: Abdominal Pain Stated Complaint: ABDOMINAL PAIN Time Seen by Provider: 02/13/17 00:00 Notes: Patient is a 61-year-old female who presents with complaint of vomiting and foul -smelling urine and dark urine. She says she was having some abdominal pain earlier. She points that her suprapubic region as to where the location of the pain was. She says she does not have pain at this time. She denies headache neck pain or back pain. She says she does fall frequently. Family says that she falls a lot since her stroke in October and this is nothing new. She does say that she has hit her head with the falls. No other complaints at this time. The triage note says that she is on a blood thinner but they cannot find it. Family is in the room and says that she used to be on a blood thinner but is no longer on 1. No new medications in the last 2 weeks. Patient walks with assistance of family. TRAVEL OUTSIDE OF THE [place] IN LAST 30 DAYS: No - Related Data Allergies/Adverse Reactions: No Known Allergies Allergy (Unverified 11/07/16 17:05) Past Medical History - Social History Smoking Status: Never Smoker Chew tobacco use (# tins/day): No Frequency of alcohol use: None Drug Abuse: None Family History: CAD, CVA, Hypertension Patient has suicidal ideation: No Patient has homicidal ideation: No - Past Medical History Cardiac Medical History: Reports: Hx Heart Attack - 2006, Hx Hypercholesterolemia, Hx Hypertension Pulmonary Medical History: Denies: Hx Asthma Neurological Medical History: Reports: Hx Cerebrovascular Accident - X 2, Hx Seizures - LAST SEIZURE APPROX 6 MO AGO Endocrine Medical History: Reports: Hx Diabetes Mellitus Type 2 Renal/ Medical History: Denies: Hx Peritoneal Dialysis GI Medical History: Reports: Hx Gastroesophageal Reflux Disease, Hx Ulcer. Denies: Hx Hepatitis, Hx Hiatal Hernia Psychiatric Medical History: Reports: Hx Dementia - Multi-infarct, Hx Depression Infectious Medical History: Denies: Hx Hepatitis Past Surgical History: Reports: Hx Cardiac Catheterization, Hx Hysterectomy. Denies: Hx Mastectomy, Hx Open Heart Surgery, Hx Pacemaker - Immunizations Hx Diphtheria, Pertussis, Tetanus Vaccination: No Review of Systems - Review of Systems Notes: My Normal Review Basic REVIEW OF SYSTEMS: CONSTITUTIONAL : Denies fever, chills, or sweats. Denies recent illness. EENT: Denies eye, ear, throat, or mouth pain or symptoms. Denies nasal or sinus congestion. CARDIOVASCULAR: Denies chest pain. RESPIRATORY: Denies cough, cold, or chest congestion. Denies shortness of breath, difficulty breathing, or wheezing. GASTROINTESTINAL: Intermittent suprapubic abdominal pain. Denies nausea, vomiting, or diarrhea. Denies constipation. Last BM: GENITOURINARY: Foul-smelling urine. MUSCULOSKELETAL: Denies neck or back pain or joint pain or swelling. SKIN: Denies rash or skin lesions. NEUROLOGICAL: Denies altered mental status or loss of consciousness. Denies headache. No new weakness or paralysis or loss of use of either side. Denies problems with gait or speech. Denies sensory or motor loss. ALL OTHER SYSTEMS REVIEWED AND NEGATIVE. Physical Exam - Vital signs Vitals: Temp Pulse Resp BP Pulse Ox 98.5 F 71 18 127/67 H 100 02/12/17 20:59 02/12/17 20:59 02/12/17 20:59 02/12/17 20:59 02/12/17 20:59 - Notes Notes: General Appearance: Well nourished, alert, cooperative, no acute distress, no obvious discomfort. Vitals: reviewed, See vital signs table. Head: no swelling or tenderness to the head Eyes: PERRL, EOMI, Conjuctiva clear Mouth: No decreasd moisture Neck: Supple, no neck tenderness, Lungs: No wheezing, No rales, No rhonci, No accessory muscle use, good air exchange bilaterally. Heart: Normal rate, Regular rythm, No murmur, no rub Abdomen: Normal BS, soft, No rigidity, No abdominal tenderness, No guarding, no rebound, no abdominal masses, no organomegaly Extremities: strength 5/5 in all extremities, good pulses in all extremities, no swelling or tenderness in the extremities, no edema. Skin: warm, dry, appropriate color, no rash Neuro: speech is slow, oriented x 3, normal affect, responds appropriately to most questions. Patient has some chronic weakness in the upper and lower extremities; however, her strength is equal in all 4 extremities. Course - Vital Signs Vital signs: Temp Pulse Resp BP Pulse Ox 98.5 F 73 16 124/69 100 02/12/17 20:59 02/13/17 00:58 02/13/17 00:58 02/13/17 00:58 02/13/17 00:58 - Laboratory Result Diagrams: 02/12/17 21:29 02/12/17 21:29 Laboratory results interpreted by me: 02/12/17 02/12/17 02/13/17 21:29 21:29 00:19 RBC 3.46 L Hgb 9.9 L Hct 30.9 L MCHC 31.9 L Potassium 3.4 L BUN 24 H Creatinine 2.35 H Est GFR ( Amer) 25 L Est GFR (Non-Af Amer) 21 L Calcium 10.3 H Urine Protein 30 H Urine Bilirubin SMALL H Urine Urobilinogen 2.0 H Ur Leukocyte Esterase MODERATE H - Transfer of Care Notes: 02/13/17 04:00 Patient's urinalysis and history and physical exam findings are consistent of urinary tract infection. She is given a dose of Rocephin. Her chemistry panel does show some renal sufficiency. This most likely is related to her not eating or drinking much over the last 2 days. She is feeling improved with antibiotic. I have given her a liter of fluids. This time I will discharge her home to give her strong return precautions if she has any recurrent vomiting , is not eating or drinking well, or has fevers. I informed the family that she must return to ER in 2 days so that we can recheck her kidney function make sure it is improving and not worsening. Patient and family agree with plan and she will be discharged home. I did listen to her lungs after she received a liter of fluid. She had no rales or signs of edema. Family denies history of pulmonary edema. Dictation of this chart was performed using voice recognition software; therefore, there may be some unintended grammatical errors. Discharge - Discharge Clinical Impression: Renal insufficiency UTI (urinary tract infection) Qualifiers: Urinary tract infection type: site unspecified Hematuria presence: without hematuria Qualified Code(s): N39.0 - Urinary tract infection, site not specified Condition: Good Disposition: HOME, SELF-CARE Additional Instructions: Please return to the ER in 2 days for reevaluation and to have your kidney function rechecked. Please take the antibiotics as prescribed. Please return to the ER immediately if Greer has recurrent vomiting, fevers, or appears to be worsening in any way. Please drink lots of noncaffeinated, clear liquids. Prescriptions: Cephalexin Monohydrate [Keflex 500 mg Capsule] 500 mg PO QID #28 capsule Referrals: HAYLEY PETERSEN NP [Primary Care Provider] - 02/16/17
--- NOTE | 2017-02-13 00:50 | RADIOLOGY REPORT (SQ) ---
EXAM DESCRIPTION: CHEST SINGLE VIEW COMPLETED DATE/TIME: 02/13/2017 12:31 am REASON FOR STUDY: vomiting COMPARISON: 11/12/2016. EXAM PARAMETERS: NUMBER OF VIEWS: One view. TECHNIQUE: Single frontal radiographic view of the chest acquired. RADIATION DOSE: NA LIMITATIONS: None. FINDINGS: LUNGS AND PLEURA: No opacities, masses or pneumothorax. No pleural effusion. MEDIASTINUM AND HILAR STRUCTURES: No masses. Contour normal. HEART AND VASCULAR STRUCTURES: Borderline prominence of the cardiac silhouette. BONES: [id number] disc desiccation. HARDWARE: None in the chest. OTHER: No other significant finding. IMPRESSION: No acute cardiopulmonary findings. TECHNICAL DOCUMENTATION: JOB ID: [id number]
--- NOTE | 2017-02-13 00:55 | RADIOLOGY REPORT (SQ) ---
EXAM DESCRIPTION: CT HEAD WITHOUT COMPLETED DATE/TIME: 02/13/2017 12:34 am REASON FOR STUDY: fall COMPARISON: 2..17. MRI, 11/06/2016. TECHNIQUE: Axial images acquired through the brain without intravenous contrast. Images reviewed wi th bone, brain and subdural windows. Images stored on PACS. All CT scanners at this facility use dose modulation, iterative reconstruction, and/or weight based d osing when appropriate to reduce radiation dose to as low as reasonably achievable (ALARA). [facility]: Dose Right [facility]: CareDose [facility]: Dose Right [facility]: Teradose 4D [facility]: Ensyn RADIATION DOSE: 55.22 mGy. LIMITATIONS: None. FINDINGS: VENTRICLES: Normal size and contour. CEREBRUM: Large left posterior parieto-occipital infarct. Moderate right occipital infarct. Lacunar infarct of the right paracentral ton. Lacunar infarct of the right external capsule. White matter microangiopathy. Heterogeneous low-density with bihemispheric white matter in the parietal lobes, s table. CEREBELLUM: No masses. No hemorrhage. No alteration of density. No evidence for acute infarction. EXTRAAXIAL SPACES: Chronic right mastoiditis pattern persists. ORBITS AND GLOBE: No intra- or extraconal masses. Normal contour of globe without masses. CALVARIUM: No fracture. PARANASAL SINUSES: No fluid or mucosal thickening. SOFT TISSUES: No mass or hematoma. OTHER: No other significant finding. IMPRESSION: No acute findings. Stable including multifocal infarct and white matter microangiopathy pattern. TECHNICAL DOCUMENTATION: JOB ID: [id number] Quality ID # 436: Final reports with documentation of one or more dose reduction techniques (e.g., Au tomated exposure control, adjustment of the mA and/or kV according to patient size, use of iterative reconstruction technique) 2010 [employer]- All Rights Reserved
[2017-02-13 01:30] LABS: AMORPHOUS SEDIMENT,URINE TRACE /HPF; APPEARANCE,URINE CLOUDY; BILIRUBIN,URINE SMALL (NEGATIVE); GLUCOSE, URINE NEGATIVE (NEGATIVE); KETONES,URINE NEGATIVE (NEGATIVE); LEUKOCYTE ESTERASE,URINE MODERATE (NEGATIVE); NITRITE,URINE NEGATIVE (NEGATIVE); PROTEIN,URINE 30 mg/dL (NEGATIVE); URINE SPECIFIC GRAVITY 1.021
[2017-02-13] MEDS ORDERED: CEFTRIAXONE INJ 1000 MG VIAL IV ONE (01:38)
[2017-02-13] MEDS ORDERED: NORMAL SALINE 1000 ML 1,000 ML IV ONE (01:39)
[2017-02-13] MEDS ORDERED: POTASSIUM CHLORIDE 10 MEQ TABLET.SA PO ONE (02:42)
[2017-02-13 04:12] VITALS: BP 129/62
== END 2017-02-13 04:11 | disposition home or self-care (01) ==
LOC: ER 20:49
DX: N39.0 Urinary tract infection, site not specified (principal); N28.9 Disorder of kidney and ureter, unspecified; R11.10 Vomiting, unspecified; R10.30 Lower abdominal pain, unspecified; R53.1 Weakness; R29.6 Repeated falls; Z91.81 History of falling; I25.2 Old myocardial infarction; I10 Essential (primary) hypertension; E11.9 Type 2 diabetes mellitus without complications; Z86.73 Personal history of transient ischemic attack (TIA), and cerebral infarction without residual deficits
CPT/HCPCS: 99285; 96361; 96365; 36415; 87086; 83690; 85025; 80053; 81001; 71010; 70450; J0696; J7030; A9270

== ENCOUNTER → 2017-02-20 | Outpatient (CLI) | payer BC, MEDICARE ==
--- NOTE | 2017-02-20 16:36 | WOMENS IMAGING REPORT ---
EXAM DESCRIPTION: BILAT SCREENING MAMMO W/CAD COMPLETED DATE/TIME: 02/20/2017 3:38 pm REASON FOR STUDY: ROUTINE SCRENNING; Z12.31 Z12.31 ENCNTR SCREEN MAMMOGRAM FOR MALIGNANT NEOPLASM O F BHAVANA COMPARISON: None available. TECHNIQUE: Standard craniocaudal and mediolateral oblique views of each breast recorded using thesocialCV.coma l acquisition. LIMITATIONS: None. FINDINGS: No masses, calcifications or architectural distortion. No areas of suspicion. Read with the assistance of CAD. .[facility] - R2 Cenova Version 1.3 .[facility] - R2 Cenova Version 1.3 .[facility] - R2 Cenova Version 2.4 .[facility] [place]2 Cenova Version 2.4 .[facility] - R2 Patient Financial Rep Version 9.2 IMPRESSION: NORMAL MAMMOGRAM. BIRADS 1. BREAST DENSITY: b. There are scattered areas of fibroglandular density. BIRAD: 1 NEGATIVE RECOMMENDATION: ROUTINE SCREENING COMMENT: The patient has been notified of the results by letter per SA requirements. Additional no tification policies are in place for contacting patient with suspicious or incomplete findings. Quality ID #225: The [employer] recommends an annual screening mammogram for women aged 40 years or over. This facility utilizes a reminder system to ensure that all patients receive reminder letters, and/or direct phone calls for appointments. This includes reminders for routine scr eening mammograms, diagnostic mammograms, or other Breast Imaging Interventions when appropriate. Th is patient will be placed in the appropriate reminder system. The [employer] (ACR) has developed recommendations for screening MRI of the breast s in certain patient populations, to be used in conjunction with mammography. Breast MRI surveillanc e may be appropriate for women with more than 20% lifetime risk of developing breast cancer as deter mined by genetic testing, significant family history of the disease, or history of mantle radiation f or Hodgkins Disease. ACR Practice Guidelines 2008. TECHNICAL DOCUMENTATION: FINDING NUMBER: (1) ASSESSMENT: (1) JOB ID: [id number] [employer]- All Rights Reserved
== END ==
LOC: WI 14:41
PROVIDERS: ATTEND Internal Medicine
DX: Z12.31 Encounter for screening mammogram for malignant neoplasm of breast (principal)
CPT/HCPCS: 77067; G0202

== ENCOUNTER 2017-02-28 16:24 | Emergency (ER) | payer MEDICARE ==
[2017-02-28] MEDS ORDERED: LORAZEPAM INJ 2 MG/1 ML VIAL ONE (16:41)
[2017-02-28] MEDS ORDERED: NORMAL SALINE 1000 ML 1,000 ML IV ONE (16:42)
--- NOTE | 2017-02-28 16:47 | ER Document Report ---
ED Seizure - General Mode of Arrival: Medic Information source: Emergency Med Personnel - HPI Patient complains to provider of: History of seizures Associated Symptoms: Other - See above <BRENT FERRER - Last Filed: 02/28/17 20:18> <LEANNE JACKSON - Last Filed: 02/28/17 22:26> - General Chief Complaint: Seizure Stated Complaint: seizure Time Seen by Provider: 02/28/17 16:41 Notes: Patient is a 61 year old female, with a past medical history including seizures , CVA, and Alzheimer's, who presents to the emergency department via EMS for a seizure. Patient's was taking a nap this afternoon and when he woke up he found the patient had fallen out of her wheelchair and was prone and drooling on the floor. EMS report the patient was seizing when they arrived. Patient was actively seizing in the exam room on arrival. Patient is on Keppra. (BRENT FERRER) Past Medical History - General Information source: Patient, [facility] Records - Social History Smoking Status: Unknown if Ever Smoked Family History: Reviewed & Not Pertinent - Past Medical History Cardiac Medical History: Reports: Hx Hypertension Neurological Medical History: Reports: Hx Cerebrovascular Accident, Hx Seizures Psychiatric Medical History: Reports: Other - Hx Alzheimer's <BRENT FERRER - Last Filed: 02/28/17 20:18> Review of Systems - Review of Systems -: Yes ROS unobtainable due to patient's medical condition - unresponsive <BRENT FERRER - Last Filed: 02/28/17 20:18> Physical Exam - Vital signs Interpretation: Tachycardic - General In distress: Severe - seizing in room, gaze to right - HEENT Head: Normocephalic, Atraumatic Pharynx: Normal Neck: Normal - Respiratory Respiratory status: Respiratory distress Breath sounds: Normal Chest palpation: Normal - Cardiovascular Rhythm: Regular, Tachycardia - Abdominal Inspection: Normal Tenderness: Nontender - Extremities General upper extremity: Normal inspection General lower extremity: Normal inspection - Skin Skin Temperature: Warm Skin Moisture: Dry <LEANNE JACKSON - Last Filed: 02/28/17 22:26> - Vital signs Vitals: Resp Pulse Ox 20 100 02/28/17 16:38 02/28/17 16:38 Course - Laboratory Result Diagrams: 02/28/17 16:33 02/28/17 16:33 <CARISSABRENT - Last Filed: 02/28/17 20:18> - Laboratory Result Diagrams: 02/28/17 16:33 02/28/17 16:33 - Diagnostic Test Radiology reviewed: Image reviewed, Reports reviewed - Consults Dr. Wright Time consulted: 21:00 Dr. Peres Time consulted: 21:24 <LEANNE JACKSON - Last Filed: 02/28/17 22:26> - Re-evaluation Re-evalutation: 02/28/17 18:35 Is a 61-year-old female who came in for altered mental status after being found on the floor by her . Patient with seizure activity and right gaze here in the emergency department. Given Ativan 0.5 mg which has stopped her seizure activity. Patient with no evidence for infection. Patient does have some ST depression on her EKG. Patient has not complained about chest pain per family. Patient was apparently talking a lot today and they noticed her right foot twitching. Did not see any tonic-clonic seizure activity. 02/28/17 20:02 Patient with return to baseline mental status at this time except she still is not talking. 02/28/17 21:32 Patient comes in with seizure activity which she has not had for 2 years. No new findings on MRI. Patient does have elevation in troponin. I discussed with the hospitalist here who feels that she should be transferred as we do not have cardiology available here to do any intervention. Discussed with family. The patient has a history of dementia due to her multiple strokes. Discussed that there is likely not going to be an intervention done by cardiology. Informed me that the patient has a family history of heart disease. Patient is a full code. Patient discussed with Dr. Peres at [facility] and will be transferred there for further evaluation of elevated cardiac enzymes, ST depression on EKG. 02/28/17 23:00 Medically stable for transfer at this time. (LEANNE JACKSON) - Vital Signs Vital signs: Temp Pulse Resp BP Pulse Ox 104 H 14 169/86 H 98 02/28/17 18:00 02/28/17 21:21 02/28/17 18:01 02/28/17 20:00 - Laboratory Laboratory results interpreted by me: 02/28/17 02/28/17 02/28/17 16:33 16:33 16:54 WBC 11.2 H RBC 3.15 L Hgb 9.0 L Hct 28.7 L MCHC 31.3 L RDW 14.3 H Seg Neutrophils % 83.6 H Lymphocytes % 8.4 L Absolute Neutrophils 9.4 H Potassium 3.5 L Carbon Dioxide 16 L Anion Gap 26 H Creatinine 1.35 H Est GFR ( Amer) 48 L Est GFR (Non-Af Amer) 40 L Glucose 220 H Lactic Acid Direct Bilirubin 0.6 H Urine Protein >=500 H Urine Glucose (UA) 50 H Urine Ketones 20 H Urine Blood SMALL H 02/28/17 19:00 WBC RBC Hgb Hct MCHC RDW Seg Neutrophils % Lymphocytes % Absolute Neutrophils Potassium Carbon Dioxide Anion Gap Creatinine Est GFR ( Amer) Est GFR (Non-Af Amer) Glucose Lactic Acid 3.8 H Direct Bilirubin Urine Protein Urine Glucose (UA) Urine Ketones Urine Blood Critical Care Note - Critical Care Note Total time excluding time spent on procedures (mins): 90 - Patient management of altered mental status, seizure activity, multiple re-evaluations, coordination of transfer, counseling of patient' family <LEANNE JACKSON - Last Filed: 02/28/17 22:26> Discharge <BRENT FERRER - Last Filed: 02/28/17 20:18> <LEANNE JACKSON - Last Filed: 02/28/17 22:26> - Discharge Clinical Impression: Seizure, NSTEMI (non-ST elevated myocardial infarction) Condition: Stable Disposition: [facility] Attestation: 02/28/17 22:24 I personally performed the services described in the documentation, reviewed and edited the documentation which was dictated to the scribe in my presence, and it accurately records my words and actions. (LEANNE JACKSON) Jonatanibe Documentation - Scribe Written by Natividad:: natividad Mcneal, 02/28/17 2018 acting as scribe for :: Marty <BRENT FERRER - Last Filed: 02/28/17 20:18>
[2017-02-28 17:12] LABS: APPEARANCE,URINE SLIGHTLY-CLOUDY; BILIRUBIN,URINE NEGATIVE (NEGATIVE); GLUCOSE, URINE 50 mg/dL (NEGATIVE); KETONES,URINE 20 mg/dL (NEGATIVE); LEUKOCYTE ESTERASE,URINE NEGATIVE (NEGATIVE); NITRITE,URINE NEGATIVE (NEGATIVE); PROTEIN,URINE >=500 mg/dL (NEGATIVE); URINE SPECIFIC GRAVITY 1.015; UROBILINOGEN,URINE NEGATIVE mg/dL (<2.0)
--- NOTE | 2017-02-28 17:33 | RADIOLOGY REPORT (SQ) ---
EXAM DESCRIPTION: CT HEAD WITHOUT COMPLETED DATE/TIME: 02/28/2017 5:16 pm REASON FOR STUDY: ams, R gaze COMPARISON: None. TECHNIQUE: Axial images acquired through the brain without intravenous contrast. Images reviewed wi th bone, brain and subdural windows. Images stored on PACS. All CT scanners at this facility use dose modulation, iterative reconstruction, and/or weight based d osing when appropriate to reduce radiation dose to as low as reasonably achievable (ALARA). [facility]: Dose Right [facility]: CareDose [facility]: Dose Right [facility]: Teradose 4D [facility]: Two Tap RADIATION DOSE: 64.61 mGy. LIMITATIONS: None. FINDINGS: VENTRICLES: Normal size and contour. CEREBRUM: No masses. No hemorrhage. No midline shift. Left occipital geographic hypoattenuation wi th ex vacuo dilatation of the occipital horn, consistent with large territory infarct. Similar, albe it less prominent findings involving the right occipital lobe. Right pontine lacunar infarct. Subtl e areas of hypoattenuation involving the left more so than right parietal subcortical white matter is consistent with chronic microvascular ischemic change. CEREBELLUM: No masses. No hemorrhage. No alteration of density. No evidence for acute infarction. EXTRAAXIAL SPACES: No fluid collections. No masses. ORBITS AND GLOBE: No intra- or extraconal masses. Normal contour of globe without masses. CALVARIUM: No fracture. PARANASAL SINUSES: No fluid or mucosal thickening. SOFT TISSUES: No mass or hematoma. OTHER: No other significant finding. IMPRESSION: Chronic left occipital infarct. Subacute versus chronic right occipital infarct. Right pontine lacunar infarct. Background of chronic microvascular ischemic change. TECHNICAL DOCUMENTATION: JOB ID: [id number] Quality ID # [id number]: Final reports with documentation of one or more dose reduction techniques (e.g., Au tomated exposure control, adjustment of the mA and/or kV according to patient size, use of iterative reconstruction technique) 2010 [employer]- All Rights Reserved
--- NOTE | 2017-02-28 17:50 | RADIOLOGY REPORT (SQ) ---
EXAM DESCRIPTION: CHEST SINGLE VIEW COMPLETED DATE/TIME: 02/28/2017 5:30 pm REASON FOR STUDY: ams COMPARISON: None. EXAM PARAMETERS: NUMBER OF VIEWS: One view. TECHNIQUE: Single frontal radiographic view of the chest acquired. RADIATION DOSE: NA LIMITATIONS: None. FINDINGS: LUNGS AND PLEURA: No opacities, masses or pneumothorax. No pleural effusion. MEDIASTINUM AND HILAR STRUCTURES: No masses. Contour normal. HEART AND VASCULAR STRUCTURES: Mild cardiomegaly. Normal vasculature. BONES: No acute findings. HARDWARE: None in the chest. OTHER: No other significant finding. IMPRESSION: Mild cardiomegaly. No evidence of acute cardiopulmonary abnormality. TECHNICAL DOCUMENTATION: JOB ID: [id number]
[2017-02-28 17:53] LABS: ABSOLUTE BASOPHILS # (AUTO) 0.1 10^3/uL (0.0-0.2); ABSOLUTE LYMPHOCYTES (AUTO) 0.9 10^3/uL (0.5-4.7); ABSOLUTE MONOCYTES (AUTO) 0.8 10^3/uL (0.1-1.4); ABSOLUTE NEUT (AUTO) 9.4 10^3/uL (1.7-8.2); BASOPHILS % (AUTO) 0.9 % (0-2); EOSINOPHILS % (AUTO) 0.4 % (0-6); HEMATOCRIT 28.7 % (36.0-47.0); HGB HCT DIFFERENCE -1.7; LYMPHOCYTES % (AUTO) 8.4 % (13-45); MEAN CORPUSCULAR HEMOGLOBIN 28.5 pg (27.0-33.4); MEAN CORPUSCULAR HGB CONC 31.3 g/dL (32.0-36.0); MEAN CORPUSCULAR VOLUME 91 fl (80-97); MONOCYTES % (AUTO) 6.7 % (3-13); RED BLOOD COUNT 3.15 10^6/uL (3.72-5.28); RED CELL DISTRIBUTION WIDTH 14.3 % (11.5-14.0); SEGMENTED NEUTROPHILS % (AUTO) 83.6 % (42-78); WHITE BLOOD COUNT 11.2 10^3/uL (4.0-10.5)
[2017-02-28 17:59] LABS: PROTHROMBIN TIME 14.5 SEC (11.4-15.4)
[2017-02-28 18:00] LABS: ALANINE AMINOTRANSFERASE 19 U/L (9-52); ALBUMIN 3.6 g/dL (3.5-5.0); ALKALINE PHOSPHATASE 63 U/L (38-126); ASPARTATE AMINO TRANSFERASE 25 U/L (14-36); BILIRUBIN,DIRECT 0.6 mg/dL (0.0-0.4); BILIRUBIN,TOTAL 0.9 mg/dL (0.2-1.3); BLOOD UREA NITROGEN 17 mg/dL (7-20); CALCIUM 9.8 mg/dL (8.4-10.2); CARBON DIOXIDE 16 mmol/L (22-30); CHLORIDE 102 mmol/L (98-107); CREATINE KINASE 70 U/L (30-135); CREATININE RESULT 1.35 mg/dL (0.52-1.25); GLUCOSE 220 mg/dL (75-110); POTASSIUM 3.5 mmol/L (3.6-5.0); TOTAL PROTEIN 7.5 g/dL (6.3-8.2)
[2017-02-28 18:08] LABS: ANION GAP 26 (5-19)
[2017-02-28 18:23] LABS: CREATINE KINASE MB 0.88 ng/mL (<4.55)
[2017-02-28 18:26] LABS: TROPONIN I 0.088 ng/mL
[2017-02-28] MEDS ORDERED: LORAZEPAM INJ 2 MG/1 ML VIAL IV ONE ×2 (19:10→20:17)
[2017-02-28 19:15] LABS: VENOUS BLOOD BASE EXCESS -0.7 mmol/L; VENOUS BLOOD HCO3 24.6 mmol/L (20-32); VENOUS BLOOD PCO2 43.1 mmHg (35-63); VENOUS BLOOD PH 7.38 (7.30-7.42)
--- NOTE | 2017-02-28 21:18 | RADIOLOGY REPORT (SQ) ---
EXAM DESCRIPTION: MRI HEAD WITHOUT COMPLETED DATE/TIME: 02/28/2017 8:58 pm REASON FOR STUDY: evaluate for CVA COMPARISON: None. TECHNIQUE: Multiplanar imaging includes non-contrasted T1, T2, FLAIR, and diffusion with ADC map seq uences. Images stored on PACS. LIMITATIONS: Patient motion artifact limits several of the acquisitions. FINDINGS: ANATOMY: No anomalies. Normal vascular flow voids. Pituitary fossa normal. CSF SPACES: Atrophy induced prominence of ventricles and CSF spaces. CEREBRUM: Re- demonstration of previously described geographic encephalomalacia involving the left gr eater than right occipital lobes. Likewise, lacunar infarcts are seen involving the right ton and r ight posterior limb of the internal capsule as well as the left ton and bilateral periventricular wh ite matter. High signal intensity lesions scattered throughout the white matter on FLAIR imaging wit h distribution suggesting micro-vascular ischemic changes. No evidence of hemorrhage, mass, or extra axial fluid collection. POSTERIOR FOSSA: No signal alteration. No hemorrhage. No edema, masses or mass effect. Internal angie tory canals and cerebello-pontine angles normal. DIFFUSION IMAGING: Negative for acute or sub-acute infarction. ORBITS: No masses. Globes normal. PARANASAL SINUSES: No fluid levels. Mucosa normal. Right mastoid air cell effusion. OTHER: No other significant finding. IMPRESSION: No evidence of acute or subacute ischemic injury. Chronic large territory encephalomala andrew involving the bilateral occipital lobes as well as several scattered lacunar infarcts are superim posed on a background of chronic microvascular ischemic change. Incidental note is made of a right m astoid air cell effusion. TECHNICAL DOCUMENTATION: JOB ID: [id number]- All Rights Reserved
[2017-02-28] MEDS ORDERED: LEVETIRACETAM 1500 MG/NACL-ISO 100 ML IV ONE (22:20)
[2017-02-28] MEDS ORDERED: LEVETIRACETAM INJ/PF 500 MG/5 ML SDV IV ONE (22:44)
[2017-03-01] MEDS ORDERED: LORAZEPAM INJ 2 MG/1 ML VIAL IV ONE (03:25)
[2017-03-01 03:54] VITALS: BP 141/70
--- NOTE | 2017-03-02 09:44 | EKG REPORT ---
SEVERITY:- ABNORMAL ECG - SINUS TACHYCARDIA NONSPECIFIC INTRAVENTRICULAR CONDUCTION DELAY PROBABLE LVH WITH SECONDARY REPOL ABNRM : Confirmed by: Angelica Arellano 02-Mar-2017 09:42:45
== END 2017-03-01 03:30 | disposition short-term general hospital (02) ==
LOC: EDBD → ER 16:24 → MERGE 16:24 → ER 03-01 03:30
DX: R56.9 Unspecified convulsions (principal); I21.4 Non-ST elevation (NSTEMI) myocardial infarction; I10 Essential (primary) hypertension; I69.398 Other sequelae of cerebral infarction; G30.9 Alzheimer's disease, unspecified; F02.80 Dementia in other diseases classified elsewhere, unspecified severity, without behavioral disturbance, psychotic disturbance, mood disturbance, and anxiety; Z79.899 Other long term (current) drug therapy; Z82.49 Family history of ischemic heart disease and other diseases of the circulatory system
CPT/HCPCS: 93005; 96376; 99291; 99292; 96361; 96375; 96365; 36415; 87040; 87086; 82553; 82550; 85025; 85610; 80053; 81001; 84484; 82803; 83605; 70551; 71010; 70450; 93010; J2060 ×2; J7030; J1953

== ENCOUNTER 2017-03-23 13:02 | Emergency (ER) | payer MEDICARE ==
[2017-03-23] MEDS ORDERED: ASPIRIN 81 MG TABLET, CHEWABLE PO ONE (13:05)
[2017-03-23] MEDS ORDERED: ONDANSETRON HCL INJ/PF 4 MG/2 ML SDV IV ONE (13:09)
--- NOTE | 2017-03-23 13:32 | ER Document Report ---
ED General - General Chief Complaint: Vomiting Stated Complaint: WEAKNESS Time Seen by Provider: 03/23/17 13:08 Mode of Arrival: Stretcher Information source: Relative - - HPI Patient complains to provider of: generalized weakness, nausea and vomiting Onset: Other - 2-3 days Onset/Duration: Gradual Notes: Is a 61-year-old female who was brought to the emergency room by EMS for complaints of generalized weakness, decreased appetite, not taking her medications, patient was recently admitted to the [facility] as a transfer from here for acute CVA and an STEMI, she was discharged on of last week, since being home her condition has deteriorated slightly according to , she has not been taking her medications and not eating, patient is having some nausea and vomiting upon arrival to the emergency room, and complaining of some pain in the upper abdomen/chest - Related Data Allergies/Adverse Reactions: ASA Adverse Reaction (Uncoded 03/23/17 14:55) Home Medications: Current Home Medications Amlodipine Besylate 10 mg PO DAILY 03/23/17 [History] Clonidine HCl 0.3 mg PO DAILY 03/23/17 [History] Famotidine 20 mg PO DAILY 03/23/17 [History] Ferrous Sulfate [Iron] 325 mg PO DAILY 03/23/17 [History] Hydrochlorothiazide 12.5 mg PO DAILY 03/23/17 [History] Levetiracetam in NaCl (Iso-Os) [Levetiracetam-NaCl 1,000Mg/100] 5 ml PO TID 12/05 [History] Lisinopril 40 mg PO DAILY 03/23/17 [History] Magnesium Oxide 400 mg PO DAILY 03/23/17 [History] Metoprolol Succinate [Toprol Xl] 100 mg PO DAILY 03/23/17 [History] Potassium Chloride 40 meq PO BID 03/23/17 [History] Quetiapine Fumarate [Seroquel] 25 mg PO QHS 03/23/17 [History] Simvastatin 20 mg PO DAILY 03/23/17 [History] Past Medical History - General Information source: Patient, Relative - Social History Smoking Status: Unknown if Ever Smoked Family History: Reviewed & Not Pertinent - Past Medical History Cardiac Medical History: Reports: Hx Hypertension Neurological Medical History: Reports: Hx Cerebrovascular Accident, Hx Seizures Review of Systems - Review of Systems Constitutional: See HPI EENT: No symptoms reported Cardiovascular: See HPI Respiratory: No symptoms reported Gastrointestinal: See HPI Genitourinary: No symptoms reported Female Genitourinary: No symptoms reported Musculoskeletal: No symptoms reported Skin: No symptoms reported Hematologic/Lymphatic: No symptoms reported Neurological/Psychological: No symptoms reported -: Yes All other systems reviewed and negative Physical Exam - Vital signs Vitals: Temp Pulse Resp BP Pulse Ox 97.8 F 78 20 197/91 H 100 03/23/17 13:02 03/23/17 13:02 03/23/17 13:02 03/23/17 13:02 03/23/17 13:02 Interpretation: Hypertensive, Tachycardic - General General appearance: Alert In distress: None - HEENT Head: Normocephalic, Atraumatic Eyes: Normal Cornea: Normal Extraocular movements intact: Yes Eyelashes: Normal Pupils: PERRL - Respiratory Respiratory status: No respiratory distress Chest status: Nontender Breath sounds: Normal Chest palpation: Normal - Cardiovascular Rhythm: Regular, Tachycardia Heart sounds: Normal auscultation Murmur: No - Abdominal Inspection: Normal Distension: No distension Bowel sounds: Normal Tenderness: Tender - Epigastric Organomegaly: No organomegaly - Back Back: Normal - Extremities General upper extremity: Normal inspection General lower extremity: Normal inspection - Neurological Cognition: Confused Orientation: Disoriented to events Josey Coma Scale Eye Opening: Spontaneous Josey Coma Scale Verbal: Confused Josey Coma Scale Motor: Obeys Commands Josey Coma Scale Total: 14 - Skin Skin Temperature: Warm Skin Moisture: Dry Skin Color: Normal Course - Re-evaluation Re-evalutation: 03/23/17 18:20 He has been resting comfortably with stable vital signs, blood pressure is significantly improved, lab and imaging findings discussed with family at bedside which are significant for a urinary tract infection without any signs of leukocytosis, family was encouraged to ensure that patient eats and drinks as well as takes her medication on a daily basis, otherwise she is going to need to be placed in a an assisted living facility with a PEG tube for feeding, family does report that she is willing to drink Ensure shakes, I advised him to crush her pills up and give him to her with Ensure shakes to ensure that she takes them, antibiotics for urinary tract infection will be provided in liquid form to ensure patient take - Vital Signs Vital signs: Temp Pulse Resp BP Pulse Ox 97.8 F 78 12 166/87 H 100 03/23/17 13:02 03/23/17 13:02 03/23/17 18:01 03/23/17 18:01 03/23/17 18:01 - Laboratory Result Diagrams: 03/23/17 13:55 03/23/17 13:55 Laboratory results interpreted by me: 03/23/17 03/23/17 13:55 15:20 Hgb 11.4 L Hct 34.6 L RDW 14.7 H Urine Protein 100 H Urine Ketones 80 H Urine Blood SMALL H Ur Leukocyte Esterase LARGE H - Diagnostic Test Radiology reviewed: Image reviewed, Reports reviewed - EKG Interpretation by Me EKG shows normal: Sinus rhythm Rate: Bradycardia Discharge - Discharge Clinical Impression: UTI (urinary tract infection) Qualifiers: Urinary tract infection type: site unspecified Hematuria presence: without hematuria Qualified Code(s): N39.0 - Urinary tract infection, site not specified Condition: Stable Disposition: HOME, SELF-CARE Instructions: Urinary Tract Infection ([facility]) Additional Instructions: Follow up with your primary care provider in one to 2 days. Return to the emergency room immediately if symptoms worsen or any additional concerns. Prescriptions: Cephalexin Monohydrate [Keflex 250 mg/5 ml Susp] 500 mg PO BID #200 ml
--- NOTE | 2017-03-23 13:58 | RADIOLOGY REPORT (SQ) ---
EXAM DESCRIPTION: CHEST SINGLE VIEW COMPLETED DATE/TIME: 03/23/2017 1:41 pm REASON FOR STUDY: chest pain COMPARISON: 02/28/2017 EXAM PARAMETERS: NUMBER OF VIEWS: One view. TECHNIQUE: Single frontal radiographic view of the chest acquired. RADIATION DOSE: NA LIMITATIONS: None. FINDINGS: LUNGS AND PLEURA: No opacities, masses or pneumothorax. No pleural effusion. MEDIASTINUM AND HILAR STRUCTURES: No masses. Contour normal. HEART AND VASCULAR STRUCTURES: Heart normal in size. Normal vasculature. BONES: No acute findings. HARDWARE: None in the chest. OTHER: No other significant finding. IMPRESSION: NO ACUTE RADIOGRAPHIC FINDING IN THE CHEST. TECHNICAL DOCUMENTATION: JOB ID: [id number]
[2017-03-23 14:11] LABS: ABSOLUTE BASOPHILS # (AUTO) 0.1 10^3/uL (0.0-0.2); ABSOLUTE EOSINOPHILS # (AUTO) 0.1 10^3/uL (0.0-0.6); ABSOLUTE LYMPHOCYTES (AUTO) 1.2 10^3/uL (0.5-4.7); ABSOLUTE MONOCYTES (AUTO) 0.6 10^3/uL (0.1-1.4); ABSOLUTE NEUT (AUTO) 3.3 10^3/uL (1.7-8.2); BASOPHILS % (AUTO) 1.2 % (0-2); EOSINOPHILS % (AUTO) 2.3 % (0-6); HEMATOCRIT 34.6 % (36.0-47.0); HEMOGLOBIN 11.4 g/dL (12.0-15.5); HGB HCT DIFFERENCE -0.4; LYMPHOCYTES % (AUTO) 23.5 % (13-45); MEAN CORPUSCULAR HEMOGLOBIN 28.9 pg (27.0-33.4); MEAN CORPUSCULAR VOLUME 88 fl (80-97); MONOCYTES % (AUTO) 10.8 % (3-13); RED BLOOD COUNT 3.95 10^6/uL (3.72-5.28); RED CELL DISTRIBUTION WIDTH 14.7 % (11.5-14.0); SEGMENTED NEUTROPHILS % (AUTO) 62.2 % (42-78); WHITE BLOOD COUNT 5.2 10^3/uL (4.0-10.5)
[2017-03-23 14:35] LABS: ALANINE AMINOTRANSFERASE 21 U/L (9-52); ALBUMIN 3.7 g/dL (3.5-5.0); ALKALINE PHOSPHATASE 58 U/L (38-126); ANION GAP 16 (5-19); ASPARTATE AMINO TRANSFERASE 19 U/L (14-36); BILIRUBIN,DIRECT 0.4 mg/dL (0.0-0.4); BILIRUBIN,TOTAL 1.1 mg/dL (0.2-1.3); BLOOD UREA NITROGEN 16 mg/dL (7-20); CALCIUM 10.2 mg/dL (8.4-10.2); CARBON DIOXIDE 22 mmol/L (22-30); CHLORIDE 102 mmol/L (98-107); CREATINE KINASE 56 U/L (30-135); GLUCOSE 80 mg/dL (75-110); POTASSIUM 3.9 mmol/L (3.6-5.0); SODIUM 139.6 mmol/L (137-145); TOTAL PROTEIN 7.6 g/dL (6.3-8.2)
[2017-03-23 14:45] LABS: CREATINE KINASE MB 0.69 ng/mL (<4.55); TROPONIN I 0.025 ng/mL
[2017-03-23] MEDS ORDERED: METOPROLOL TARTRATE PF/INJ 5 MG/5 ML SDV IV ONE (15:11)
[2017-03-23 15:40] LABS: APPEARANCE,URINE CLOUDY; BILIRUBIN,URINE NEGATIVE (NEGATIVE); GLUCOSE, URINE NEGATIVE (NEGATIVE); KETONES,URINE 80 mg/dL (NEGATIVE); LEUKOCYTE ESTERASE,URINE LARGE (NEGATIVE); NITRITE,URINE NEGATIVE (NEGATIVE); PROTEIN,URINE 100 mg/dL (NEGATIVE); URINE SPECIFIC GRAVITY 1.014; UROBILINOGEN,URINE NEGATIVE mg/dL (<2.0)
[2017-03-23] MEDS ORDERED: CEFTRIAXONE INJ 1000 MG VIAL IV ONE (16:00)
[2017-03-23] MEDS ORDERED: CLONIDINE HCL 0.2 MG TABLET PO ONE (17:00)
--- NOTE | 2017-03-23 18:16 | EKG REPORT ---
SEVERITY:- ABNORMAL ECG - SINUS RHYTHM FIRST DEGREE AV BLOCK LEFT VENTRICULAR HYPERTROPHY BORDERLINE PROLONGED QT INTERVAL : Confirmed by: Segun Chirinos MD 23-Mar-2017 18:16:29
[2017-03-23 20:13] VITALS: BP 171/88
== END 2017-03-23 20:13 | disposition home or self-care (01) ==
LOC: EDBD → ER 13:02 → MERGE 13:02 → ER 20:13
DX: N39.0 Urinary tract infection, site not specified (principal); R11.2 Nausea with vomiting, unspecified; R53.1 Weakness; R10.10 Upper abdominal pain, unspecified; R07.9 Chest pain, unspecified; I10 Essential (primary) hypertension; Z86.73 Personal history of transient ischemic attack (TIA), and cerebral infarction without residual deficits
CPT/HCPCS: 93005; 99285; 96374; 96375; 36415; 87086; 80177; 82553; 82550; 85025; 87088; 80053; 81001; 84484; 87186; 71010; 93010; A9270; J3490; J0696; J2405

== ENCOUNTER 2017-03-27 05:44 | Inpatient (IN) | payer MEDICARE ==
--- NOTE | 2017-03-27 06:09 | RADIOLOGY REPORT (SQ) ---
EXAM DESCRIPTION: CT HEAD WITHOUT COMPLETED DATE/TIME: 03/27/2017 5:53 am REASON FOR STUDY: AMS COMPARISON: 02/13/2017. 11/06/2016, MRI. CT, 11/06/2016. TECHNIQUE: Axial images acquired through the brain without intravenous contrast. Images reviewed wi th bone, brain and subdural windows. Images stored on PACS. All CT scanners at this facility use dose modulation, iterative reconstruction, and/or weight based d osing when appropriate to reduce radiation dose to as low as reasonably achievable (ALARA). [facility]: Dose Right [facility]: CareDose [facility]: Dose Right [facility]: Teradose 4D [facility]: [employer] RADIATION DOSE: 885 LIMITATIONS: None. FINDINGS: VENTRICLES: Normal size and contour. CEREBRUM: Chronic left, moderate the posterior parieto-occipital infarct. Small-moderate right poste rior parieto-occipital infarct. Moderate white matter microangiopathy. Bilateral lacunar infarcts. Focal areas of diminished white matter signal consistent with prior MRI, 11/06/2016. CEREBELLUM: No masses. No hemorrhage. No alteration of density. No evidence for acute infarction. EXTRAAXIAL SPACES: No fluid collections. No masses. ORBITS AND GLOBE: No intra- or extraconal masses. Normal contour of globe without masses. CALVARIUM: No fracture. PARANASAL SINUSES: No fluid or mucosal thickening. SOFT TISSUES: No mass or hematoma. OTHER: Fluid occlusion of the right mastoid air cells. IMPRESSION: No significant interval change. No acute findings. TECHNICAL DOCUMENTATION: JOB ID: [id number] Quality ID # [id number]: Final reports with documentation of one or more dose reduction techniques (e.g., Au tomated exposure control, adjustment of the mA and/or kV according to patient size, use of iterative reconstruction technique) 2010 [employer]- All Rights Reserved
[2017-03-27 06:15] LABS: PARTIAL THROMBOPLASTIN TIME 26.2 SEC (23.5-35.8)
--- NOTE | 2017-03-27 06:15 | ER Document Report ---
ED General - General Chief Complaint: Altered Mental Status Stated Complaint: POSSIBLE STROKE Time Seen by Provider: 03/27/17 06:00 Mode of Arrival: Medic Information source: Relative, Emergency Med Personnel, [facility] Records Cannot obtain history due to: Altered mental status Notes: 61-year-old female history of previous CVA presents altered home. Patient at baseline does not ambulate, but is able to speak intermittently. This morning patient was found not responding to stimuli gaze to the right TRAVEL OUTSIDE OF THE [place] IN LAST 30 DAYS: No - HPI Onset: Just prior to arrival Onset/Duration: Sudden Quality of pain: No pain Severity: Severe Pain Level: Denies Associated symptoms: Weakness Exacerbated by: Denies Relieved by: Denies Similar symptoms previously: Yes Recently seen / treated by doctor: Yes - Related Data Allergies/Adverse Reactions: No Known Allergies Allergy (Unverified 11/07/16 17:05) Home Medications: Current Home Medications Amlodipine Besylate [Norvasc 10 mg Tablet] 10 mg PO DAILY 03/27/17 [History] Aspirin [Aspirin 325 mg Tablet] 325 mg PO DAILY 03/27/17 [History] Cephalexin Monohydrate [Keflex 250 mg/5 ml Susp] 500 mg PO BID 03/27/17 [History ] Clonidine HCl [Catapres 0.3 mg Tablet] 0.3 mg PO DAILY 03/27/17 [History] Famotidine [Pepcid] 20 mg PO DAILY 03/27/17 [History] Ferrous Sulfate [Feosol 325 mg Tablet] 325 mg PO DAILY 03/27/17 [History] Hydrochlorothiazide [Hydrodiuril 12.5 mg Capsule] 12.5 mg PO DAILY 03/27/17 [ History] Levetiracetam 500 mg PO Q8 03/27/17 [History] Lisinopril [Prinivil 40 mg Tablet] 40 mg PO DAILY 03/27/17 [History] Magnesium Oxide [Mag-Ox 400 mg Tablet] 400 mg PO DAILY 03/27/17 [History] Metoprolol Succinate [Toprol XL 100 mg Tablet] 100 mg PO DAILY 03/27/17 [History ] Potassium Chloride [Klor-Con Sprinkle] 40 meq PO Q12 03/27/17 [History] Quetiapine Fumarate [Seroquel 25 mg Tablet] 25 mg PO QHS 03/27/17 [History] Simvastatin [Zocor 20 mg Tablet] 20 mg PO QPM 03/27/17 [History] Past Medical History - Social History Smoking Status: Never Smoker Cigarette use (# per day): No Chew tobacco use (# tins/day): No Smoking Education Provided: No Family History: CAD, CVA, Hypertension - Past Medical History Cardiac Medical History: Reports: Hx Heart Attack - 2007, Hx Hypercholesterolemia, Hx Hypertension Pulmonary Medical History: Denies: Hx Asthma Neurological Medical History: Reports: Hx Cerebrovascular Accident - X 2, Hx Seizures - LAST SEIZURE APPROX 6 MO AGO Endocrine Medical History: Reports: Hx Diabetes Mellitus Type 2 Renal/ Medical History: Denies: Hx Peritoneal Dialysis GI Medical History: Reports: Hx Gastroesophageal Reflux Disease, Hx Ulcer. Denies: Hx Hepatitis, Hx Hiatal Hernia Psychiatric Medical History: Reports: Hx Dementia - Multi-infarct, Hx Depression Infectious Medical History: Denies: Hx Hepatitis Past Surgical History: Reports: Hx Cardiac Catheterization, Hx Hysterectomy. Denies: Hx Mastectomy, Hx Open Heart Surgery, Hx Pacemaker - Immunizations Hx Diphtheria, Pertussis, Tetanus Vaccination: No Review of Systems - Review of Systems Notes: REVIEW OF SYSTEMS: CONSTITUTIONAL : Denies fever, chills, or sweats. Denies recent illness. EENT: Denies eye, ear, throat, or mouth pain or symptoms. Denies nasal or sinus congestion or discharge. Denies throat, tongue, or mouth swelling or difficulty swallowing. CARDIOVASCULAR: Denies chest pain. Denies palpitations or racing or irregular heart beat. Denies ankle edema. RESPIRATORY: Denies cough, cold, or chest congestion. Denies shortness of breath, difficulty breathing, or wheezing. GASTROINTESTINAL: Denies abdominal pain or distention. Denies nausea, vomiting , or diarrhea. Denies blood in vomitus, stools, or per rectum. Denies black, tarry stools. Denies constipation. GENITOURINARY: Denies difficulty urinating, painful urination, burning, frequency, blood in urine, or discharge. FEMALE GENITOURINARY: Denies vaginal bleeding, heavy or abnormal periods, irregular periods. Denies vaginal discharge or odor. MUSCULOSKELETAL: Denies back or neck pain or stiffness. Denies joint pain or swelling. SKIN: Denies rash, lesions or sores. HEMATOLOGIC : Denies easy bruising or bleeding. LYMPHATIC: Denies swollen, enlarged glands. NEUROLOGICAL: Altered mental status per family PSYCHIATRIC: Denies anxiety or stress. Denies depression, suicidal ideation, or homicidal ideation. ALL OTHER SYSTEMS REVIEWED AND NEGATIVE. PHYSICAL EXAMINATION: GENERAL: Chronically ill female contractures noted HEAD: Atraumatic, normocephalic. EYES: Pupils are dilated bilaterally gaze to the right minimal light reflex ENT: Nares patent, oropharynx clear without exudates. Moist mucous membranes. NECK: Normal range of motion, supple without lymphadenopathy LUNGS: Breath sounds clear to auscultation bilaterally and equal. No wheezes rales or rhonchi. HEART: Regular rate and rhythm without murmurs ABDOMEN: Soft, nontender, nondistended abdomen. No guarding, no rebound. No masses appreciated. Female : deferred Musculoskeletal: Patient unable to move her extremities NEUROLOGICAL: GCS 9 SKIN: Warm, Dry, normal turgor, no rashes or lesions noted. Dictation was performed using [employer] voice recognition software Physical Exam - Vital signs Vitals: Pulse Resp BP Pulse Ox 124 H 21 H 225/127 H 100 03/27/17 05:49 03/27/17 05:49 03/27/17 05:49 03/27/17 05:49 Course - Re-evaluation Re-evalutation: 03/27/17 10:35 Initial concern was for CVA, patient is noted to be in A. fib RVR, Cardizem started bolus and drip. Patient was quite hypertensive initially on arrival. CT of the head was negative for an acute hemorrhagic CVA, and symptoms appear to have started last known well last night therefore she is not a TPA candidate. Patient is noted to have 3+ bacteria in her urine and given her vital signs I believe she may be septic as a result, Rocephin was given. Patient is also noted to be hypoxic and hypercapnic, she was started on BiPAP immediately To be admitted to the IMCU she is noted to be a DNR - Vital Signs Vital signs: Temp Pulse Resp BP Pulse Ox 99.2 F 130 H 10 L 135/75 H 99 03/27/17 10:01 03/27/17 08:00 03/27/17 08:00 03/27/17 10:01 03/27/17 10:01 - Laboratory Result Diagrams: 03/27/17 05:54 03/27/17 05:54 Laboratory results interpreted by me: 0703/27/17 03/27/17 05:54 05:54 05:54 RDW 14.6 H VBG pH 7.17 L* VBG pCO2 70.5 H* Sodium 145.6 H BUN 26 H Est GFR (Non-Af Amer) 51 L Glucose 150 H Lactic Acid Calcium 10.8 H Direct Bilirubin 0.5 H Total Protein 8.7 H Urine Protein Urine Ketones Urine Blood 03/27/17 03/27/17 05:54 06:45 RDW VBG pH VBG pCO2 Sodium BUN Est GFR (Non-Af Amer) Glucose Lactic Acid 2.2 H Calcium Direct Bilirubin Total Protein Urine Protein >=500 H Urine Ketones 20 H Urine Blood SMALL H Critical Care Note - Critical Care Note Total time excluding time spent on procedures (mins): 76 Comments: 76 minutes of critical care time spent in direct contact evaluating and reevaluating the patient, treating symptoms, reviewing labs and studies and speaking with family and consultants excluding any procedures Discharge - Discharge Clinical Impression: Paroxysmal atrial fibrillation, Encephalopathy, Hypertensive emergency, Respiratory acidosis Sepsis Qualifiers: Sepsis type: sepsis due to unspecified organism Qualified Code(s): A41.9 - Sepsis, unspecified organism UTI (urinary tract infection) Qualifiers: Urinary tract infection type: site unspecified Hematuria presence: without hematuria Qualified Code(s): N39.0 - Urinary tract infection, site not specified Condition: Fair Disposition: ADMITTED INPATIENT Admitting Provider: Hospitalist Unit Admitted: [facility]
[2017-03-27] MEDS ORDERED: DILTIAZEM HCL/D5W 125 MG/125 ML RTUINJ IV ONE (06:16)
[2017-03-27] MEDS ORDERED: DILTIAZEM HCL/D5W 125 ML IV PRN (06:16)
[2017-03-27] MEDS ORDERED: DILTIAZEM HCL INJ 25 MG/5 ML VIAL ONE (06:16)
[2017-03-27] MEDS ORDERED: DILTIAZEM HCL INJ 25 MG/5 ML VIAL IV ONE (06:16)
[2017-03-27 06:17] LABS: ABSOLUTE BASOPHILS # (AUTO) 0.1 10^3/uL (0.0-0.2); ABSOLUTE EOSINOPHILS # (AUTO) 0.1 10^3/uL (0.0-0.6); ABSOLUTE LYMPHOCYTES (AUTO) 2.3 10^3/uL (0.5-4.7); ABSOLUTE MONOCYTES (AUTO) 0.7 10^3/uL (0.1-1.4); ABSOLUTE NEUT (AUTO) 5.6 10^3/uL (1.7-8.2); EOSINOPHILS % (AUTO) 1.4 % (0-6); HEMATOCRIT 38.6 % (36.0-47.0); HEMOGLOBIN 12.5 g/dL (12.0-15.5); HGB HCT DIFFERENCE -1.1; LYMPHOCYTES % (AUTO) 26.1 % (13-45); MEAN CORPUSCULAR HGB CONC 32.3 g/dL (32.0-36.0); MEAN CORPUSCULAR VOLUME 90 fl (80-97); MONOCYTES % (AUTO) 7.9 % (3-13); RED BLOOD COUNT 4.29 10^6/uL (3.72-5.28); RED CELL DISTRIBUTION WIDTH 14.6 % (11.5-14.0); SEGMENTED NEUTROPHILS % (AUTO) 63.6 % (42-78); WHITE BLOOD COUNT 8.9 10^3/uL (4.0-10.5)
[2017-03-27 06:28] LABS: VENOUS BLOOD BASE EXCESS -4.6 mmol/L; VENOUS BLOOD HCO3 25.3 mmol/L (20-32)
--- NOTE | 2017-03-27 06:28 | RADIOLOGY REPORT (SQ) ---
EXAM DESCRIPTION: CHEST SINGLE VIEW COMPLETED DATE/TIME: 03/27/2017 6:20 am REASON FOR STUDY: AMS COMPARISON: 02/13/2017. EXAM PARAMETERS: NUMBER OF VIEWS: One view. TECHNIQUE: Single frontal radiographic view of the chest acquired. RADIATION DOSE: NA LIMITATIONS: None. FINDINGS: LUNGS AND PLEURA: No opacities, masses or pneumothorax. No pleural effusion. MEDIASTINUM AND HILAR STRUCTURES: No masses. Contour normal. HEART AND VASCULAR STRUCTURES: Heart normal in size. Normal vasculature. BONES: No acute findings. HARDWARE: None in the chest. OTHER: No other significant finding. IMPRESSION: NO ACUTE RADIOGRAPHIC FINDING IN THE CHEST. TECHNICAL DOCUMENTATION: JOB ID: [id number]
[2017-03-27 06:31] LABS: VENOUS BLOOD PCO2 70.5 mmHg (35-63); VENOUS BLOOD PH 7.17 (7.30-7.42)
[2017-03-27 06:37] LABS: ALANINE AMINOTRANSFERASE 18 U/L (9-52); ALBUMIN 4.1 g/dL (3.5-5.0); ALKALINE PHOSPHATASE 63 U/L (38-126); ANION GAP 17 (5-19); ASPARTATE AMINO TRANSFERASE 25 U/L (14-36); BILIRUBIN,DIRECT 0.5 mg/dL (0.0-0.4); BILIRUBIN,TOTAL 1.1 mg/dL (0.2-1.3); BLOOD UREA NITROGEN 26 mg/dL (7-20); CALCIUM 10.8 mg/dL (8.4-10.2); CARBON DIOXIDE 26 mmol/L (22-30); CHLORIDE 103 mmol/L (98-107); CREATINE KINASE 56 U/L (30-135); CREATININE RESULT 1.09 mg/dL (0.52-1.25); GLUCOSE 150 mg/dL (75-110); POTASSIUM 3.8 mmol/L (3.6-5.0); SODIUM 145.6 mmol/L (137-145); TOTAL PROTEIN 8.7 g/dL (6.3-8.2)
[2017-03-27 06:49] LABS: CREATINE KINASE MB 0.56 ng/mL (<4.55); TROPONIN I 0.03 ng/mL
[2017-03-27] MEDS ORDERED: NORMAL SALINE 1000 ML 1,000 ML IV PRN (07:07)
[2017-03-27 07:12] LABS: AMORPHOUS SEDIMENT,URINE TRACE /HPF; APPEARANCE,URINE CLOUDY; BILIRUBIN,URINE NEGATIVE (NEGATIVE); GLUCOSE, URINE NEGATIVE (NEGATIVE); KETONES,URINE 20 mg/dL (NEGATIVE); LEUKOCYTE ESTERASE,URINE NEGATIVE (NEGATIVE); NITRITE,URINE NEGATIVE (NEGATIVE); PROTEIN,URINE >=500 mg/dL (NEGATIVE); URINE SPECIFIC GRAVITY 1.019; UROBILINOGEN,URINE NEGATIVE mg/dL (<2.0)
[2017-03-27] MEDS ORDERED: CEFTRIAXONE 1 GM/D5W RTU 50 ML IV ONE (07:56)
--- NOTE | 2017-03-27 08:16 | EKG REPORT ---
SEVERITY:- ABNORMAL ECG - SINUS TACHYCARDIA MULTIFORM VENTRICULAR PREMATURE COMPLEXES PROBABLE LEFT ATRIAL ABNORMALITY LVH WITH IVCD AND SECONDARY REPOL ABNRM : Confirmed by: Segun Chirinos MD 27-Mar-2017 08:15:13
[2017-03-27] MEDS ORDERED: GLUCAGON,HUMAN RECOMB 1 MG INJ SUBCUT PRN (09:55)
[2017-03-27] MEDS ORDERED: ONDANSETRON HCL INJ/PF 4 MG/2 ML SDV IV PRN (09:55)
[2017-03-27] MEDS ORDERED: DEXTROSE 50%-WATER 25 GM/50 ML DISP.SYRIN IV PRN ×2 (09:55)
[2017-03-27] MEDS ORDERED: IPRATROPIUM/ALBUTEROL 0.5-2.5 MG/3 ML AMPUL NEB PRN (09:55)
[2017-03-27] MEDS ORDERED: DEXTROSE 40% GEL 15 GM TUBE PO PRN ×2 (09:55)
[2017-03-27] MEDS ORDERED: ACETAMINOPHEN 325 MG TABLET PO PRN (09:55)
--- NOTE | 2017-03-27 10:16 | PDOC H&P ---
History of Present Illness Admission Date/PCP: 03/27/17 09:50 HAYLEY PETERSEN NP Patient complains of: Unresponsiveness History of Present Illness: DAVID SALAS is a 61 year old female history of seizure disorder as well as a previous history of CVA who presents via EMS from unresponsiveness. The patient over the last 2 days according the family has had decreased p.o. intake and has not been eating or taking her medications. This morning when they found her she had a generalized tonic-clonic seizure and was unresponsive. The patient was transported to the emergency room and was found to have atrial fibrillation with heart rate of 140. She was unarousable. Not clear whether this was a postictal state or not. The patient is unable to give any history but does appear to have a urinary tract infection. No evidence for trauma. She has not had any fevers or chills according to the sister. Past Medical History Cardiac Medical History: Reports: Atrial Fibrillation, Congestive Heart Failure , Myocardial Infarction - 2006, Hyperlipidema, Hypertension Pulmonary Medical History: Denies: Asthma EENT Medical History: Reports: Cataracts Neurological Medical History: Reports: Ischemic CVA, Seizures - Last seizure probably this morning Endocrine Medical History: Reports: Diabetes Mellitus Type 2 Renal/ Medical History: Reports: None Malignancy Medical History: Reports: None GI Medical History: Reports: Gastroesophageal Reflux Disease Denies: Hepatitis, Hiatal Hernia Skin Medical History: Reports: None Psychiatric Medical History: Reports: Dementia - Multi-infarct, Depression Hematology: Denies: Anemia, Sickle Cell Disease Past Surgical History Past Surgical History: Reports: Cardiac Catheterization, Hysterectomy Denies: Amputation, Mastectomy, Pacemaker Social History Information Source: Relative, [facility] Records Lives with: Family Smoking Status: Never Smoker Frequency of Alcohol Use: None Hx Recreational Drug Use: No Drugs: None Hx Prescription Drug Abuse: No - Advance Directive Resuscitation Status: Do Not Resuscitate Surrogate healthcare decision maker:: Her sister Miranda is the decision-maker Family History Family History: CAD, CVA, Hypertension Parental Family History Reviewed: Yes Children Family History Reviewed: No Sibling(s) Family History Reviewed.: No Medication/Allergy Home Medications: Amlodipine Besylate [Norvasc 10 mg Tablet] 10 mg PO DAILY 03/27/17 Aspirin [Aspirin 325 mg Tablet] 325 mg PO DAILY 03/27/17 Cephalexin Monohydrate [Keflex 250 mg/5 ml Susp] 500 mg PO BID 03/27/17 Clonidine HCl [Catapres 0.3 mg Tablet] 0.3 mg PO DAILY 03/27/17 Famotidine [Pepcid] 20 mg PO DAILY 03/27/17 Ferrous Sulfate [Feosol 325 mg Tablet] 325 mg PO DAILY 03/27/17 Hydrochlorothiazide [Hydrodiuril 12.5 mg Capsule] 12.5 mg PO DAILY 03/27/17 Levetiracetam 500 mg PO Q8 03/27/17 Lisinopril [Prinivil 40 mg Tablet] 40 mg PO DAILY 03/27/17 Magnesium Oxide [Mag-Ox 400 mg Tablet] 400 mg PO DAILY 03/27/17 Metoprolol Succinate [Toprol XL 100 mg Tablet] 100 mg PO DAILY 03/27/17 Potassium Chloride [Klor-Con Sprinkle] 40 meq PO Q12 03/27/17 Quetiapine Fumarate [Seroquel 25 mg Tablet] 25 mg PO QHS 03/27/17 Simvastatin [Zocor 20 mg Tablet] 20 mg PO QPM 03/27/17 Allergies/Adverse Reactions: No Known Allergies Allergy (Unverified 11/07/16 17:05) Review of Systems ROS unobtainable: Due to mental status Physical Exam Vital Signs: Temp Pulse Resp BP Pulse Ox 98.8 F 130 H 10 L 181/103 H 96 03/27/17 06:55 03/27/17 08:00 03/27/17 08:00 03/27/17 08:00 03/27/17 08:20 General appearance: PRESENT: mild distress, well-developed, well-nourished Head exam: PRESENT: atraumatic, normocephalic Eye exam: PRESENT: conjunctiva pink. ABSENT: scleral icterus Ear exam: PRESENT: normal external ear exam Mouth exam: PRESENT: moist, tongue midline Neck exam: ABSENT: carotid bruit, JVD, lymphadenopathy, thyromegaly Respiratory exam: PRESENT: clear to auscultation cristino. ABSENT: rales, rhonchi, wheezes Cardiovascular exam: PRESENT: irregular rhythm, tachycardia. ABSENT: diastolic murmur, rubs, systolic murmur Vascular exam: PRESENT: normal capillary refill GI/Abdominal exam: PRESENT: normal bowel sounds, soft. ABSENT: distended, guarding, mass, organolmegaly, rebound, tenderness Extremities exam: ABSENT: calf tenderness, clubbing, pedal edema Neurological exam: PRESENT: altered Psychiatric exam: PRESENT: flat affect Skin exam: PRESENT: dry, intact, warm. ABSENT: cyanosis, rash Results Impressions: Head CT 03/27/17 00:00 IMPRESSION: No significant interval change. No acute findings. Chest X-Ray 03/27/17 05:59 IMPRESSION: NO ACUTE RADIOGRAPHIC FINDING IN THE CHEST. Assessment & Plan - Diagnosis (1) Encephalopathy Is this a current diagnosis for this admission?: YesPlan: Patient has encephalopathy. Etiology is not entirely clear. She does have a history of seizure disorder and may be postictal. She also has a previous history of CVA and we will treat as if she has had a CVA with aspirin, neurological exams. If she does not improve in the next 24 hours we will obtain MRI to evaluate. (2) CVA (cerebral vascular accident) Qualifiers: CVA mechanism: unspecified Qualified Code(s): I63.9 - Cerebral infarction, unspecified Is this a current diagnosis for this admission?: YesPlan: Has a prior history of CVA and now with altered mental status may have had another CVA. Head CT was negative. Will continue with aspirin and obtain an MRI if she does not wake up in the next 24 hours. If she has had a CVA we will consult PT, OT, speech therapy. (3) Paroxysmal atrial fibrillation Is this a current diagnosis for this admission?: YesPlan: The patient is on a diltiazem drip and we will continue with that. (4) Depression Is this a current diagnosis for this admission?: YesPlan: Has a history of depression (5) Diabetes mellitus type 2 in obese Is this a current diagnosis for this admission?: YesPlan: Cover with sliding scale insulin. (6) Hyperlipidemia Qualifiers: Hyperlipidemia type: unspecified Qualified Code(s): E78.5 - Hyperlipidemia, unspecified Is this a current diagnosis for this admission?: YesPlan: Has been on Zocor as an outpatient. Will restart when she is able to take p.o. (7) Hypertension Is this a current diagnosis for this admission?: YesPlan: We will treat with the IV diltiazem she is getting for her atrial fibrillation for now. Will restart her antihypertensives when she is awake enough to take pills per (8) Multi-infarct dementia Qualifiers: Dementia behavioral disturbance: without behavioral disturbance Qualified Code(s): F01.50 - Vascular dementia without behavioral disturbance Is this a current diagnosis for this admission?: YesPlan: The patient is cared for by her sister Miranda. She is a DO NOT RESUSCITATE. (9) Seizures Is this a current diagnosis for this admission?: YesPlan: Continue with the sai. - Time Time Spent: 50 to 70 Minutes - Inpatient Certification Medical Necessity: Need Close Monitoring Due to Risk of Patient Decompensation, Need for Neurological Checks
[2017-03-27 12:48] LABS: CREATINE KINASE MB 0.82 ng/mL (<4.55); TROPONIN I 0.064 ng/mL
--- NOTE | 2017-03-27 13:12 | EKG REPORT ---
SEVERITY:- ABNORMAL ECG - SINUS TACHYCARDIA NONSPECIFIC INTRAVENTRICULAR CONDUCTION DELAY LVH WITH SECONDARY REPOLARIZATION ABNORMALITY : Confirmed by: Segun Chirinos MD 27-Mar-2017 13:11:07
[2017-03-27] MEDS: FAMOTIDINE INJ/PF 20 MG/2 ML SDV IV SCH ×2 (13:57→21:38)
[2017-03-27] MEDS: DILTIAZEM HCL/D5W 125 ML IV PRN ×2 (13:58→21:54)
[2017-03-27] MEDS ORDERED: ACETAMINOPHEN SOLN 325 MG/10.15 ML UDCUP PEG PRN (13:59)
[2017-03-27] MEDS ORDERED: LEVETIRACETAM ORAL SOLN 500 MG/5 ML UDCUP PO SCH (14:00)
[2017-03-27] MEDS: ENOXAPARIN SODIUM INJ 40 MG/0.4 ML DISP.SYRIN SUBCUT SCH (14:02)
--- NOTE | 2017-03-27 16:27 | RADIOLOGY REPORT (SQ) ---
EXAM DESCRIPTION: CHEST SINGLE VIEW COMPLETED DATE/TIME: 03/27/2017 3:36 pm REASON FOR STUDY: check ng tube placement COMPARISON: 03/27/2017 TECHNIQUE: AP view of the chest and upper abdomen LIMITATIONS: None. FINDINGS: NG tube is identified extending into the left upper quadrant with its tip not being identi fied. Visualized lung hu remain clear. No other interval changes seen. IMPRESSION: NG tube is identified extending into the left upper quadrant with its tip not being iden tified. Other findings as noted above. TECHNICAL DOCUMENTATION: JOB ID: [id number] [employer]- All Rights Reserved
[2017-03-27] MEDS: LEVETIRACETAM ORAL SOLN 500 MG/5 ML UDCUP PEG SCH ×2 (16:32→21:38)
[2017-03-27 18:33] LABS: CREATINE KINASE MB 1.15 ng/mL (<4.55)
[2017-03-27 18:40] LABS: TROPONIN I 0.139 ng/mL
[2017-03-27] MEDS: NORMAL SALINE 1000 ML 1,000 ML IV PRN (21:34)
[2017-03-27] MEDS: QUETIAPINE FUMARATE 25 MG TABLET PEG SCH (21:38)
[2017-03-27] MEDS ORDERED: QUETIAPINE FUMARATE 25 MG TABLET PO SCH (22:00)
[2017-03-28 00:51] LABS: CREATINE KINASE MB 0.86 ng/mL (<4.55)
[2017-03-28 00:54] LABS: TROPONIN I 0.215 ng/mL
[2017-03-28] MEDS: DILTIAZEM HCL/D5W 125 ML IV PRN ×2 (05:13→13:55)
[2017-03-28] MEDS: LEVETIRACETAM ORAL SOLN 500 MG/5 ML UDCUP PEG SCH ×3 (05:15→22:58)
[2017-03-28] MEDS: NORMAL SALINE 1000 ML 1,000 ML IV PRN (05:17)
[2017-03-28 07:10] LABS: ABSOLUTE LYMPHOCYTES (AUTO) 0.6 10^3/uL (0.5-4.7); ABSOLUTE MONOCYTES (AUTO) 0.7 10^3/uL (0.1-1.4); ABSOLUTE NEUT (AUTO) 7.1 10^3/uL (1.7-8.2); BASOPHILS % (AUTO) 0.1 % (0-2); HEMATOCRIT 33.1 % (36.0-47.0); HEMOGLOBIN 10.6 g/dL (12.0-15.5); HGB HCT DIFFERENCE -1.3; LYMPHOCYTES % (AUTO) 6.9 % (13-45); MEAN CORPUSCULAR HEMOGLOBIN 28.9 pg (27.0-33.4); MEAN CORPUSCULAR HGB CONC 31.9 g/dL (32.0-36.0); MEAN CORPUSCULAR VOLUME 90 fl (80-97); MONOCYTES % (AUTO) 8.2 % (3-13); RED BLOOD COUNT 3.67 10^6/uL (3.72-5.28); RED CELL DISTRIBUTION WIDTH 14.7 % (11.5-14.0); SEGMENTED NEUTROPHILS % (AUTO) 84.8 % (42-78); WHITE BLOOD COUNT 8.4 10^3/uL (4.0-10.5)
[2017-03-28 07:27] LABS: ANION GAP 14 (5-19); BLOOD UREA NITROGEN 34 mg/dL (7-20); CALCIUM 9.4 mg/dL (8.4-10.2); CARBON DIOXIDE 23 mmol/L (22-30); CHLORIDE 108 mmol/L (98-107); CREATININE RESULT 1.52 mg/dL (0.52-1.25); GLUCOSE 185 mg/dL (75-110); MAGNESIUM 1.4 mg/dL (1.6-2.3); POTASSIUM 4.1 mmol/L (3.6-5.0); SODIUM 145.2 mmol/L (137-145)
[2017-03-28] MEDS ORDERED: FERROUS SULFATE 325 MG TABLET PO SCH (10:00)
[2017-03-28] MEDS ORDERED: ASPIRIN 325 MG TABLET PO SCH (10:00)
[2017-03-28] MEDS: ENOXAPARIN SODIUM INJ 40 MG/0.4 ML DISP.SYRIN SUBCUT SCH (10:33)
[2017-03-28] MEDS: FAMOTIDINE INJ/PF 20 MG/2 ML SDV IV SCH ×2 (10:34→22:58)
[2017-03-28] MEDS: ASPIRIN 325 MG TABLET PEG SCH (10:34)
[2017-03-28] MEDS: CEFTRIAXONE 1 GM/D5W RTU 50 ML IV SCH (10:34)
[2017-03-28] MEDS: FERROUS SULFATE LIQUID 300 MG/5 ML UDC PEG SCH (10:34)
--- NOTE | 2017-03-28 12:24 | PDOC PROGRESS REPORT ---
Subjective Progress Note for:: 03/28/17 Subjective:: Has been unresponsive Physical Exam Vital Signs: Temp Pulse Resp BP Pulse Ox 100.5 F H 96 16 173/71 H 100 03/28/17 08:00 03/28/17 08:00 03/28/17 09:09 03/28/17 08:02 03/28/17 08:00 Intake & Output 03/27/17 03/28/17 03/29/17 06:59 06:59 06:59 Intake Total 1290 Output Total 290 Balance 1000 Weight 68.6 kg General appearance: PRESENT: mild distress Eye exam: PRESENT: conjunctiva pink. ABSENT: scleral icterus Mouth exam: PRESENT: moist, tongue midline Neck exam: ABSENT: JVD Respiratory exam: PRESENT: clear to auscultation cristino. ABSENT: rales, rhonchi, wheezes Cardiovascular exam: PRESENT: irregular rhythm. ABSENT: diastolic murmur, rubs , systolic murmur GI/Abdominal exam: PRESENT: normal bowel sounds, soft. ABSENT: distended, guarding, mass, organolmegaly, rebound, tenderness Neurological exam: PRESENT: altered Psychiatric exam: PRESENT: other - Patient is unresponsive Skin exam: PRESENT: dry, intact, warm. ABSENT: cyanosis, rash Results Laboratory Results: 03/28/17 06:33 03/28/17 06:33 03/27/17 03/28/17 03/28/17 12:07 06:33 06:33 WBC 8.4 RBC 3.67 L Hgb 10.6 L Hct 33.1 L MCV 90 MCH 28.9 MCHC 31.9 L RDW 14.7 H Plt Count 194 Seg Neutrophils % 84.8 H Lymphocytes % 6.9 L Monocytes % 8.2 Eosinophils % 0.0 Basophils % 0.1 Absolute Neutrophils 7.1 Absolute Lymphocytes 0.6 Absolute Monocytes 0.7 Absolute Eosinophils 0.0 Absolute Basophils 0.0 Sodium 145.2 H Potassium 4.1 Chloride 108 H Carbon Dioxide 23 Anion Gap 14 BUN 34 H Creatinine 1.52 H Est GFR ( Amer) 42 L Est GFR (Non-Af Amer) 35 L Glucose 185 H Lactic Acid 4.0 H Calcium 9.4 Magnesium 1.4 L 03/27/17 03/27/17 03/27/17 12:07 12:07 17:56 Creatine Kinase 43 43 CK-MB (CK-2) 0.82 Troponin I 0.064 03/27/17 03/28/17 03/28/17 17:56 00:13 00:13 Creatine Kinase 42 CK-MB (CK-2) 1.15 0.86 Troponin I 0.139 0.215 Impressions: Head CT 03/27/17 00:00 IMPRESSION: No significant interval change. No acute findings. Chest X-Ray 03/27/17 05:59 IMPRESSION: NO ACUTE RADIOGRAPHIC FINDING IN THE CHEST. Assessment & Plan - Diagnosis (1) Encephalopathy Is this a current diagnosis for this admission?: YesPlan: Patient has encephalopathy. Etiology is not entirely clear. She does have a history of seizure disorder but has not had any tonic-clonic movements. She also has a previous history of CVA and we will treat as if she has had a CVA with aspirin. Family is considering making her comfort care. (2) CVA (cerebral vascular accident) Qualifiers: CVA mechanism: unspecified Qualified Code(s): I63.9 - Cerebral infarction, unspecified Is this a current diagnosis for this admission?: YesPlan: Has a prior history of CVA and now with altered mental status may have had another CVA. Head CT was negative. Will continue with aspirin. (3) Paroxysmal atrial fibrillation Is this a current diagnosis for this admission?: YesPlan: She is rate controlled (4) Depression Is this a current diagnosis for this admission?: YesPlan: Has a history of depression (5) Diabetes mellitus type 2 in obese Is this a current diagnosis for this admission?: YesPlan: Cover with sliding scale insulin. (6) Hyperlipidemia Qualifiers: Hyperlipidemia type: unspecified Qualified Code(s): E78.5 - Hyperlipidemia, unspecified Is this a current diagnosis for this admission?: YesPlan: Has been on Zocor as an outpatient. Will restart when she is able to take p.o. (7) Hypertension Is this a current diagnosis for this admission?: YesPlan: Stable (8) Multi-infarct dementia Qualifiers: Dementia behavioral disturbance: without behavioral disturbance Qualified Code(s): F01.50 - Vascular dementia without behavioral disturbance Is this a current diagnosis for this admission?: YesPlan: The patient is cared for by her sister Miranda. She is a DO NOT RESUSCITATE. (9) Seizures Is this a current diagnosis for this admission?: YesPlan: Continue with the Jitendra. - Time Time Spent with patient: 25-34 minutes - Inpatient Certification Medical Necessity: Need for Neurological Checks
[2017-03-28] MEDS: MORPHINE SULFATE 10 MG/ML INJ IV PRN (17:48)
[2017-03-28] MEDS: QUETIAPINE FUMARATE 25 MG TABLET PEG SCH (22:58)
[2017-03-29] MEDS: MORPHINE SULFATE 10 MG/ML INJ IV PRN ×3 (04:23→20:28)
[2017-03-29] MEDS: LEVETIRACETAM ORAL SOLN 500 MG/5 ML UDCUP PEG SCH ×3 (06:03→22:13)
[2017-03-29] MEDS ORDERED: SCOPOLAMINE HYDROBROMIDE 1.5 MG PATCH.TD72 TD SCH (10:00)
[2017-03-29] MEDS: ASPIRIN 325 MG TABLET PEG SCH (10:36)
[2017-03-29] MEDS: FAMOTIDINE INJ/PF 20 MG/2 ML SDV IV SCH ×2 (10:36→22:13)
[2017-03-29] MEDS: ENOXAPARIN SODIUM INJ 40 MG/0.4 ML DISP.SYRIN SUBCUT SCH (10:36)
[2017-03-29] MEDS: CEFTRIAXONE 1 GM/D5W RTU 50 ML IV SCH (10:36)
[2017-03-29] MEDS: FERROUS SULFATE LIQUID 300 MG/5 ML UDC PEG SCH (10:36)
--- NOTE | 2017-03-29 11:10 | PDOC PROGRESS REPORT ---
Subjective Progress Note for:: 03/29/17 Subjective:: Has been unresponsive. Family has made the patient comfort care. Physical Exam Vital Signs: Temp Pulse Resp BP Pulse Ox 100.9 F H 93 19 179/84 H 100 03/29/17 07:54 03/29/17 07:54 03/29/17 07:54 03/29/17 07:54 03/29/17 07:54 Intake & Output 03/28/17 03/29/17 03/30/17 06:59 06:59 06:59 Intake Total 1290 1345 Output Total 290 1625 Balance 1000 -280 Weight 68.6 kg General appearance: PRESENT: no acute distress Eye exam: PRESENT: conjunctiva pink. ABSENT: scleral icterus Neck exam: ABSENT: JVD Respiratory exam: PRESENT: rhonchi - Rhonchi bilaterally.. ABSENT: rales, wheezes Cardiovascular exam: PRESENT: irregular rhythm. ABSENT: diastolic murmur, rubs , systolic murmur GI/Abdominal exam: PRESENT: normal bowel sounds, soft. ABSENT: distended, guarding, mass, organolmegaly, rebound, tenderness Extremities exam: ABSENT: calf tenderness, clubbing, pedal edema Neurological exam: PRESENT: altered. ABSENT: oriented to person, oriented to place, oriented to time, oriented to situation Psychiatric exam: PRESENT: flat affect Skin exam: PRESENT: dry, intact, warm. ABSENT: cyanosis, rash Results Laboratory Results: 03/28/17 06:33 03/28/17 06:33 03/27/17 03/27/17 03/27/17 12:07 12:07 17:56 Creatine Kinase 43 43 CK-MB (CK-2) 0.82 Troponin I 0.064 03/27/17 03/28/17 03/28/17 17:56 00:13 00:13 Creatine Kinase 42 CK-MB (CK-2) 1.15 0.86 Troponin I 0.139 0.215 Impressions: Head CT 03/27/17 00:00 IMPRESSION: No significant interval change. No acute findings. Chest X-Ray 03/27/17 05:59 IMPRESSION: NO ACUTE RADIOGRAPHIC FINDING IN THE CHEST. Assessment & Plan - Diagnosis (1) Encephalopathy Is this a current diagnosis for this admission?: YesPlan: Patient has encephalopathy. Secondary to acute CVA. Patient is comfort care. (2) CVA (cerebral vascular accident) Qualifiers: CVA mechanism: unspecified Qualified Code(s): I63.9 - Cerebral infarction, unspecified Is this a current diagnosis for this admission?: YesPlan: Will continue with aspirin. (3) Paroxysmal atrial fibrillation Is this a current diagnosis for this admission?: YesPlan: She is rate controlled (4) Depression Is this a current diagnosis for this admission?: YesPlan: Has a history of depression (5) Diabetes mellitus type 2 in obese Is this a current diagnosis for this admission?: YesPlan: Cover with sliding scale insulin. (6) Hyperlipidemia Qualifiers: Hyperlipidemia type: unspecified Qualified Code(s): E78.5 - Hyperlipidemia, unspecified Is this a current diagnosis for this admission?: YesPlan: Has been on Zocor as an outpatient. (7) Hypertension Is this a current diagnosis for this admission?: YesPlan: Comfort Care (8) Multi-infarct dementia Qualifiers: Dementia behavioral disturbance: without behavioral disturbance Qualified Code(s): F01.50 - Vascular dementia without behavioral disturbance Is this a current diagnosis for this admission?: Yes (9) Seizures Is this a current diagnosis for this admission?: Yes - Time Time Spent with patient: 25-34 minutes - Plan Summary Plan Summary: Patient is being treated for comfort care only. Will place a scopolamine patch today to help with secretions.
[2017-03-29] MEDS: NORMAL SALINE 1000 ML 1,000 ML IV PRN (11:25)
[2017-03-29] MEDS: QUETIAPINE FUMARATE 25 MG TABLET PEG SCH (11:25)
[2017-03-29] MEDS: DILTIAZEM HCL/D5W 125 ML IV PRN (11:25)
[2017-03-30] MEDS ORDERED: MORPHINE SULFATE 10 MG/ML INJ ONE
[2017-03-30] MEDS ORDERED: MORPHINE SULFATE 10 MG/ML INJ IV ONE (01:00)
[2017-03-30] MEDS: MORPHINE SULFATE 10 MG/ML INJ IV PRN ×4 (03:54→21:35)
[2017-03-30] MEDS: LEVETIRACETAM ORAL SOLN 500 MG/5 ML UDCUP PEG SCH (06:05)
[2017-03-30] MEDS: ENOXAPARIN SODIUM INJ 40 MG/0.4 ML DISP.SYRIN SUBCUT SCH (09:15)
[2017-03-30] MEDS: FERROUS SULFATE LIQUID 300 MG/5 ML UDC PEG SCH (09:15)
[2017-03-30] MEDS: ASPIRIN 325 MG TABLET PEG SCH (09:15)
[2017-03-30] MEDS: CEFTRIAXONE 1 GM/D5W RTU 50 ML IV SCH (09:15)
[2017-03-30] MEDS: FAMOTIDINE INJ/PF 20 MG/2 ML SDV IV SCH (09:15)
--- NOTE | 2017-03-30 10:21 | PDOC PROGRESS REPORT ---
Subjective Progress Note for:: 03/30/17 Subjective:: patient is unresponsive Physical Exam Vital Signs: Temp Pulse Resp BP Pulse Ox 99.3 F 104 H 18 214/87 H 100 03/30/17 07:24 03/30/17 07:24 03/30/17 07:24 03/30/17 07:24 03/30/17 08:53 Intake & Output 03/29/17 03/30/17 03/31/17 06:59 06:59 06:59 Intake Total 1345 32 Output Total 1625 950 Balance -280 -918 Weight 66 kg General appearance: PRESENT: mild distress Eye exam: PRESENT: conjunctiva pink. ABSENT: scleral icterus Ear exam: PRESENT: normal external ear exam Mouth exam: PRESENT: moist, tongue midline Neck exam: ABSENT: JVD Respiratory exam: PRESENT: rhonchi - Coarse rhonchi bilaterally. ABSENT: rales , wheezes Cardiovascular exam: PRESENT: irregular rhythm, tachycardia. ABSENT: diastolic murmur, rubs, systolic murmur GI/Abdominal exam: PRESENT: normal bowel sounds, soft. ABSENT: distended, guarding, mass, organolmegaly, rebound, tenderness Extremities exam: ABSENT: calf tenderness, clubbing, pedal edema Neurological exam: PRESENT: other - Patient response to painful stimuli Psychiatric exam: PRESENT: flat affect Skin exam: PRESENT: dry, intact, warm. ABSENT: cyanosis, rash Results Laboratory Results: 03/28/17 06:33 03/28/17 06:33 03/27/17 03/27/17 03/27/17 12:07 12:07 17:56 Creatine Kinase 43 43 CK-MB (CK-2) 0.82 Troponin I 0.064 03/27/17 03/28/17 03/28/17 17:56 00:13 00:13 Creatine Kinase 42 CK-MB (CK-2) 1.15 0.86 Troponin I 0.139 0.215 Impressions: Head CT 03/27/17 00:00 IMPRESSION: No significant interval change. No acute findings. Chest X-Ray 03/27/17 05:59 IMPRESSION: NO ACUTE RADIOGRAPHIC FINDING IN THE CHEST. Assessment & Plan - Diagnosis (1) Encephalopathy Is this a current diagnosis for this admission?: YesPlan: Patient has encephalopathy. Secondary to acute CVA. Patient is comfort care. (2) CVA (cerebral vascular accident) Qualifiers: CVA mechanism: unspecified Qualified Code(s): I63.9 - Cerebral infarction, unspecified Is this a current diagnosis for this admission?: YesPlan: Comfort Care (3) Paroxysmal atrial fibrillation Is this a current diagnosis for this admission?: YesPlan: Currently tachycardic. She is Comfort Care (4) Depression Is this a current diagnosis for this admission?: Yes (5) Diabetes mellitus type 2 in obese Is this a current diagnosis for this admission?: Yes (6) Hyperlipidemia Qualifiers: Hyperlipidemia type: unspecified Qualified Code(s): E78.5 - Hyperlipidemia, unspecified Is this a current diagnosis for this admission?: Yes (7) Hypertension Is this a current diagnosis for this admission?: Yes (8) Multi-infarct dementia Qualifiers: Dementia behavioral disturbance: without behavioral disturbance Qualified Code(s): F01.50 - Vascular dementia without behavioral disturbance Is this a current diagnosis for this admission?: Yes (9) Seizures Is this a current diagnosis for this admission?: Yes - Time Time Spent with patient: 15-24 minutes - Inpatient Certification Medical Necessity: Need Close Monitoring Due to Risk of Patient Decompensation - Plan Summary Plan Summary: Continue with morphine as needed for comfort care
[2017-03-31] MEDS: MORPHINE SULFATE 10 MG/ML INJ IV PRN ×4 (03:56→21:16)
--- NOTE | 2017-03-31 10:56 | PDOC PROGRESS REPORT ---
Subjective Progress Note for:: 03/31/17 Subjective:: Patient unresponsive, nonverbal, on comfort measures. No reported respiratory distress, temperature spikes, nausea or vomiting. Patient came from home according to the family, has chronic seizures, multiple strokes in the past, with poor oral intake. Patient reportedly has expressed her wishes according to the family including being a DNR, and no feeding tube. Family however unaware of hospice services in this kind of case. Physical Exam Vital Signs: Temp Pulse Resp BP Pulse Ox 100.8 F H 98 18 221/94 H 100 03/31/17 10:29 03/31/17 10:29 03/31/17 10:29 03/31/17 10:29 03/31/17 10:29 Intake & Output 03/30/17 03/31/17 04/01/17 06:59 06:59 06:59 Intake Total 32 20 Output Total 950 825 Balance -918 -805 Weight 66 kg 65.9 kg General appearance: PRESENT: no acute distress, other - nonverbal, eyes are open no tremors noted Eye exam: PRESENT: conjunctiva pale Mouth exam: PRESENT: dry mucosa Neck exam: ABSENT: JVD Respiratory exam: PRESENT: rhonchi, unlabored. ABSENT: wheezes Cardiovascular exam: PRESENT: irregular rhythm, RRR. ABSENT: gallop GI/Abdominal exam: PRESENT: hypoactive bowel sounds, soft. ABSENT: distended, tenderness Extremities exam: ABSENT: pedal edema Neurological exam: PRESENT: awake Psychiatric exam: ABSENT: agitated Focused psych exam: ABSENT: restlessness Skin exam: PRESENT: dry, warm. ABSENT: cyanosis Results Laboratory Results: 03/28/17 06:33 03/28/17 06:33 03/27/17 03/27/17 03/27/17 12:07 12:07 17:56 Creatine Kinase 43 43 CK-MB (CK-2) 0.82 Troponin I 0.064 03/27/17 03/28/17 03/28/17 17:56 00:13 00:13 Creatine Kinase 42 CK-MB (CK-2) 1.15 0.86 Troponin I 0.139 0.215 Impressions: Head CT 03/27/17 00:00 IMPRESSION: No significant interval change. No acute findings. Chest X-Ray 03/27/17 05:59 IMPRESSION: NO ACUTE RADIOGRAPHIC FINDING IN THE CHEST. Assessment & Plan - Diagnosis (1) Encephalopathy Is this a current diagnosis for this admission?: Yes (2) CVA (cerebrovascular accident) Qualifiers: CVA mechanism: unspecified Qualified Code(s): I63.9 - Cerebral infarction, unspecified Is this a current diagnosis for this admission?: Yes (3) Seizures Is this a current diagnosis for this admission?: Yes (4) Diabetes mellitus type 2 in nonobese Is this a current diagnosis for this admission?: Yes (5) Dementia Qualifiers: Dementia type: unspecified type Dementia behavioral disturbance: without behavioral disturbance Qualified Code(s): F03.90 - Unspecified dementia without behavioral disturbance Is this a current diagnosis for this admission?: Yes (6) Paroxysmal atrial fibrillation Is this a current diagnosis for this admission?: Yes (7) Depression Qualifiers: Depression Type: unspecified Qualified Code(s): F32.9 - Major depressive disorder, single episode, unspecified Is this a current diagnosis for this admission?: Yes (8) Hyperlipidemia Qualifiers: Hyperlipidemia type: unspecified Qualified Code(s): E78.5 - Hyperlipidemia, unspecified Is this a current diagnosis for this admission?: Yes (9) Hypertension Qualifiers: Hypertension type: essential hypertension Qualified Code(s): I10 - Essential (primary) hypertension Is this a current diagnosis for this admission?: Yes - Time Time Spent with patient: 25-34 minutes - Plan Summary Plan Summary: Family at bedside, hospice services discussed both home and inpatient. Continue comfort measure and supportive care. Patient is a DNR. Family will discuss among themselves regarding disposition.
--- NOTE | 2017-03-31 13:47 | PDOC DISCHARGE SUMMARY ---
General - Admit/Disc Date/PCP Admission Date/Primary Care Provider: 03/27/17 09:55 HAYLEY PETERSEN NP Discharge Date: 03/31/17 - Discharge Diagnosis (1) Encephalopathy Is this a current diagnosis for this admission?: Yes (2) CVA (cerebrovascular accident) Is this a current diagnosis for this admission?: Yes (3) Seizures Is this a current diagnosis for this admission?: Yes (4) Diabetes mellitus type 2 in nonobese Is this a current diagnosis for this admission?: Yes (5) Dementia Is this a current diagnosis for this admission?: Yes (6) Paroxysmal atrial fibrillation Is this a current diagnosis for this admission?: Yes (7) Depression Is this a current diagnosis for this admission?: Yes (8) Hyperlipidemia Is this a current diagnosis for this admission?: Yes (9) Hypertension Is this a current diagnosis for this admission?: Yes - Additional Information Resuscitation Status: Do Not Resuscitate Home Medications: Amlodipine Besylate [Norvasc 10 mg Tablet] 10 mg PO DAILY 03/27/17 Aspirin [Aspirin 325 mg Tablet] 325 mg PO DAILY 03/27/17 Cephalexin Monohydrate [Keflex 250 mg/5 ml Susp] 500 mg PO BID 03/27/17 Clonidine HCl [Catapres 0.3 mg Tablet] 0.3 mg PO DAILY 03/27/17 Famotidine [Pepcid] 20 mg PO DAILY 03/27/17 Ferrous Sulfate [Feosol 325 mg Tablet] 325 mg PO DAILY 03/27/17 Hydrochlorothiazide [Hydrodiuril 12.5 mg Capsule] 12.5 mg PO DAILY 03/27/17 Levetiracetam 500 mg PO Q8 03/27/17 Lisinopril [Prinivil 40 mg Tablet] 40 mg PO DAILY 03/27/17 Magnesium Oxide [Mag-Ox 400 mg Tablet] 400 mg PO DAILY 03/27/17 Metoprolol Succinate [Toprol XL 100 mg Tablet] 100 mg PO DAILY 03/27/17 Potassium Chloride [Klor-Con Sprinkle] 40 meq PO Q12 03/27/17 Quetiapine Fumarate [Seroquel 25 mg Tablet] 25 mg PO QHS 03/27/17 Simvastatin [Zocor 20 mg Tablet] 20 mg PO QPM 03/27/17 Additional Information: Oxygen at 2 L nasal cannula History of Present Illness Patient complains of: Altered mental status History of Present Illness: DAVID SALAS is a 61 year old female history of seizure disorder as well as a previous history of CVA who presents via EMS from unresponsiveness. The patient over the last 2 days according the family has had decreased p.o. intake and has not been eating or taking her medications. This morning when they found her she had a generalized tonic-clonic seizure and was unresponsive. The patient was transported to the emergency room and was found to have atrial fibrillation with heart rate of 140. She was unarousable. Not clear whether this was a postictal state or not. The patient is unable to give any history but does appear to have a urinary tract infection. No evidence for trauma. She has not had any fevers or chills according to the sister. For details please refer to history and physical examination performed by the admitting physician. Hospital Course Hospital Course: The patient was admitted to the stepdown unit. The patient was placed on intravenous diltiazem drip for the elevated blood pressure. Patient was maintained on her seizure medication. Patient apparently has wishes in the past regarding being a DNR and no artificial means of nutrition. CT scan of the brain did not reveal any acute abnormality other than multi-infarct changes from previous strokes. Patient was also given gentle IV hydration due to poor intake. Patient reportedly at home has a baseline poor intake. Despite gentle IV hydration, control of blood pressure, antiplatelet therapy, and anti-seizure medication, the patient's mental status did not improve. Patient remains aphasic, lethargic, and therefore upon discussion with the attending physician the patient was placed on comfort measures. No further workups were performed , IV fluids and antihypertensive medications , as well as seizure medications were all discontinued . Scopolamine patch was started as well as as needed morphine. assortment planner was therefore consulted for hospice care. Patient evaluated and was accepted at an inpatient hospice facility. The rest of the hospital stays unremarkable. Physical Exam Vital Signs: Temp Pulse Resp BP Pulse Ox 100.8 F H 98 18 221/94 H 100 03/31/17 10:29 03/31/17 10:29 03/31/17 10:29 03/31/17 10:29 03/31/17 10:29 Intake & Output 03/30/17 03/31/17 04/01/17 06:59 06:59 06:59 Intake Total 32 20 0 Output Total 950 825 Balance -918 -805 0 Weight 66 kg 65.9 kg General appearance: PRESENT: no acute distress, thin, other - Patient is nonverbal Head exam: PRESENT: normocephalic Eye exam: PRESENT: conjunctiva pale Mouth exam: PRESENT: dry mucosa, neck supple Neck exam: ABSENT: JVD Respiratory exam: PRESENT: rhonchi - Bilateral. ABSENT: wheezes Cardiovascular exam: PRESENT: irregular rhythm, RRR. ABSENT: gallop GI/Abdominal exam: PRESENT: soft. ABSENT: distended, tenderness Neurological exam: PRESENT: altered, awake Psychiatric exam: ABSENT: agitated Focused psych exam: ABSENT: restlessness Skin exam: PRESENT: dry, warm. ABSENT: cyanosis Results Laboratory Results: 03/28/17 06:33 03/28/17 06:33 03/27/17 03/27/17 03/27/17 12:07 12:07 17:56 Creatine Kinase 43 43 CK-MB (CK-2) 0.82 Troponin I 0.064 03/27/17 03/28/17 03/28/17 17:56 00:13 00:13 Creatine Kinase 42 CK-MB (CK-2) 1.15 0.86 Troponin I 0.139 0.215 Impressions: Head CT 03/27/17 00:00 IMPRESSION: No significant interval change. No acute findings. Chest X-Ray 03/27/17 05:59 IMPRESSION: NO ACUTE RADIOGRAPHIC FINDING IN THE CHEST. Qualifiers PATEINT BEING DISCHARGED WITH ANY OF THE FOLLOWING DIAGNOSIS?: Stroke Stroke Pt being discharged on Anti-thrombolytic therapy?: No Reason(s) for not prescribing Anti-thrombolytic therapy:: Comfort Measure Stroke Pt being discharged on Anti-coagulation therapy?: No Reason(s) for not prescribing Anti-coagulation therapy:: Comfort Measure Stroke Pt being discharged on Statins?: No Reason(s) for not prescribing Statins therapy:: Comfort Measure Plan Discharge Plan: Patient will be followed by the inpatient hospice physician as scheduled. Time Spent: Less than 30 Minutes
[2017-03-31 21:53] VITALS: BP 194/94
[2017-04-01] MEDS: MORPHINE SULFATE 10 MG/ML INJ IV PRN (00:05)
--- NOTE | 2017-04-01 04:07 | Progress Note ---
Provider Note Provider Note: March 31, 2017: I was contacted by patient's floor nurse, stating that ambulance transport had arrived to transport the patient to hospice. Patient is comfort care measures status, and both ambulance transport and the hospice physician require a portable DNR. Chart was reviewed. I went to the patient's bedside. , who is patient' s surrogate healthcare decision maker, son, and 2 other family members/friends were present. Patient herself was awake, looking about the room somewhat, but was not interacting in a meaningful fashion with her surroundings. Nonverbal. Implications of DO NOT RESUSCITATE/DO NOT INTUBATE/comfort care measures status discussed with and son. Discussed in layperson's terms. Implications understood. is the health care decision maker. His conversation was lucid and appropriate. desires DO NOT RESUSCITATE/DO NOT INTUBATE / comfort care measures status. Will honor his wishes. Portable DNR signed, with "no expiration date" box checked.
== END 2017-04-01 00:11 | disposition hospice, inpatient (51) | DRG 71 ==
LOC: ER 05:44 → EH 09:50 → UNDOADMIN 09:50 → EH 09:55 → 3W 11:52
PROVIDERS: ADMIT Internal Medicine; ATTEND Internal Medicine
DX: G93.40 Encephalopathy, unspecified (principal); N39.0 Urinary tract infection, site not specified; G40.409 Other generalized epilepsy and epileptic syndromes, not intractable, without status epilepticus; I48.0 Paroxysmal atrial fibrillation; I50.9 Heart failure, unspecified; Z51.5 Encounter for palliative care; Z66 Do not resuscitate; F01.50 Vascular dementia, unspecified severity, without behavioral disturbance, psychotic disturbance, mood disturbance, and anxiety; E11.9 Type 2 diabetes mellitus without complications; I10 Essential (primary) hypertension; E78.5 Hyperlipidemia, unspecified; F32.9 Major depressive disorder, single episode, unspecified; K21.9 Gastro-esophageal reflux disease without esophagitis; Z79.82 Long term (current) use of aspirin; Z79.810 Long term (current) use of selective estrogen receptor modulators (SERMs); I25.2 Old myocardial infarction; Z86.73 Personal history of transient ischemic attack (TIA), and cerebral infarction without residual deficits; Z90.710 Acquired absence of both cervix and uterus
CPT/HCPCS: 36415; 51702; 70450; 71010; 80048; 80053; 81001; 82550; 82553; 82803; 82962; 83605; 83735; 84484; 85025; 85610; 85730; 87040; 93005; 93010; 94660; 96365; 96366; 96375; 99291; 99292; J0696; J1650; J2270; J3490; J7030; S0028